=== PATIENT | female | born 1970 | race Caucasian/White ===

== ENCOUNTER 2018-01-23 14:30 | Outpatient (CLI) | payer BC ==
[~2018-01-23] VITALS: Ht 162.6 cm; Wt 97.5 kg
[2018-01-23] MEDS ORDERED: ESCI20TA PO (14:49)
[2018-01-23] MEDS ORDERED: ALPR0.254 PO (14:49)
== END 2018-01-23 14:58 | disposition home or self-care (01) ==
LOC: PREOP 14:30
PROVIDERS: ATTEND Surgery
DX: Z01.818 Encounter for other preprocedural examination (principal)

== ENCOUNTER 2018-01-25 12:18 | Day surgery (SDC) | payer BC, OTHER ==
[~2018-01-25] VITALS: Ht 162.6 cm; Wt 97.5 kg
[~2018-01-25 12:18] MED LIST: ALPR0.254 PO; ESCI20TA PO
[2018-01-25] MEDS ORDERED: LACTATED RINGERS 1,000 ML IV ONE (12:23)
[2018-01-25] MEDS ORDERED: LACTATED RINGERS 1,000 ML IV STA (12:24)
[2018-01-25 12:47] VITALS: BP 112/89
--- NOTE | 2018-01-25 12:50 | Progress Note-Pre Operative ---
Pre-Operative Progress Note H&P Reviewed The H&P was reviewed, patient examined and no changes noted. Time Seen by Provider: 12:46 Date H&P Reviewed: Jan 25, 2018 Time H&P Reviewed: 12:47 Pre-Operative Diagnosis: Personal hx of colon polyps ALBIN DEVI DO Jan 25, 2018 12:50
[2018-01-25] MEDS ORDERED: PROPOFOL INJECTION 50 ML IV ONE (13:00)
[2018-01-25] MEDS ORDERED: MIDAZOLAM 2 MG/2 ML (VERSED) VIAL ONE (13:00)
[2018-01-25] MEDS ORDERED: proPOfol 200 MG/20 ML (DIPRIVAN) VIAL IV ONE (13:36)
[2018-01-25 13:50] VITALS: BP 120/72
--- NOTE | 2018-01-25 14:02 | Progress Note-Post Operative ---
Post-Operative Progess Note Surgeon (s)/Featheredge Machine Operator (s) Surgeon ALBIN DEVI DO Featheredge Machine Operator: none Pre-Operative Diagnosis Personal hx of colon polyps Post-Operative Diagnosis Colon Polyps Internal Hemorrhoids Procedure & Operative Findings Date of Procedure 01/25/18 Procedure Performed/Findings Colon with snare Anesthesia Type IV sedation by DIRECTOR OF ALUMNI RELATIONS Estimated Blood Loss Estimated blood loss (mL): scant Specimens/Packing Specimens Removed Ascending colon polyp Descending colon polyp Large descending polyp at same site as last time ALBIN DEVI DO Jan 25, 2018 14:02
--- NOTE | 2018-01-25 14:06 | Endoscopy Discharge Instruct ---
Endo Procedure/Findings Findings 1.: Polyp 2.: Internal Hemorrhoids Discharge Instructions - Activity: You might feel a little sleepy until tomorrow. This is due to the medicine you received to relax you. Until tomorrow, you should: NOT drive a car, operate machinery or power tools. NOT drink any alcoholic beverages. NOT make any important decisions or sign importortant papers. Do not return to work until tomorrow, unless otherwise instructed. Resume previous activities tomorrow. Diet: Start by taking liquids. If you tolerate liquids, advance to solid food. Make appointment for one week Instructions: 1.: Colonoscopy in 1 year Notify Physician - If you experience excessive bleeding, unusual abdominal pain, fever, or chest pain, contact your doctor immediately. Follow-Up: - I have received and understand the above instructions and will call my doctor if I have any further questions. Patient Signature Date Nurse Signature Other (Relationship) ALBIN DEVI DO Jan 25, 2018 14:06
[2018-01-25 14:20] VITALS: BP 126/87
[2018-01-25 14:35] VITALS: BP 126/87
--- NOTE | 2018-01-26 02:51 | OPERATIVE REPORT ---
DATE OF SERVICE: PREOPERATIVE DIAGNOSIS: History of colon polyps. POSTOPERATIVE DIAGNOSES: 1. Colon polyps. 2. Internal hemorrhoids. PROCEDURE: Colonoscopy with snare polypectomy. SURGEON: William Landry DO HOUSE CLEANER SUPERVISOR: None. ANESTHESIA: IV sedation by the CLINICAL SECRETARY. SPECIMEN: One polyp from the ascending colon, small polyp from the descending colon and a very large polyp in the descending colon right at site of previous polypectomy as well as some internal hemorrhoids. PROCEDURE NOTE: After informed consent was obtained, the patient was brought to the endoscopy suite, placed on the bed in the lithotomy position. She was administered IV sedation by the CLINICAL SECRETARY who then monitored her vitals the entire time, heart rate, blood pressure and pulse ox and the scope was inserted. On the way in, noted a large polyp. Elected to push past this all the way to cecum, took a picture of appendiceal orifice, noted the ileocecal valve and then slowly withdrew the scope insufflating to look circumferentially at the ritchie looking at the cecum up the ascending colon and just about group home up the ascending colon, saw small polyp, did a snare polypectomy. Then continued up to the hepatic flexure, then down the transverse colon, splenic flexure, into the descending colon and then down towards the sigmoid colon, but I believe still in descending colon, saw small polyp, did a polypectomy and then right next was a very large polyp could see tattooing this must be the site from the previous polypectomy, able to get around this and did a hot snare polypectomy. Minimal bleeding at base, may have been small portion of the polyp left because it was just so large, but got a good enough portion elected to stop at this point, had to pull the scope all the way out with the polyps suctioned up to the scope to remove it and then placed the scope back in and then slowly took a picture of the bed where we had taken the polyp off of and then pulled the scope down the sigmoid into the rectum, retroflexed the rectal vault, saw some minimal internal hemorrhoids, took a picture of this and then removed the scope. The patient tolerated the procedure and she was recovered in the endoscopy suite. Job ID: [id number] DocumentID: [id number] Dictated Date: 01/25/2018 14:26:38 Director Critical Care Date: 01/26/2018 02:51:17 Dictated By: WILLIAM LANDRY DO [facility] MED[facility] CENTERShanice
== END 2018-01-25 14:35 | disposition home or self-care (01) ==
LOC: ENDO 12:18
PROVIDERS: ATTEND Surgery
DX: Z09 Encounter for follow-up examination after completed treatment for conditions other than malignant neoplasm (principal); C18.6 Malignant neoplasm of descending colon; D12.2 Benign neoplasm of ascending colon; D12.5 Benign neoplasm of sigmoid colon; K64.8 Other hemorrhoids; F41.9 Anxiety disorder, unspecified; Z86.010 Personal history of colon polyps; Z87.891 Personal history of nicotine dependence; Z79.899 Other long term (current) drug therapy
CPT/HCPCS: 36415; 84703; 88305; 88341; 88342

== ENCOUNTER 2018-02-12 11:52 | Outpatient (CLI) | payer OTHER ==
[~2018-02-12] VITALS: Ht 162.6 cm; Wt 109.1 kg
[2018-02-12 12:09] VITALS: BP 109/72
[2018-02-12 12:44] LABS: BASOPHILS % (AUTO) 0 % (0-10); EOSINOPHILS # (AUTO) 0.1 10^3/uL (0.0-0.3); EOSINOPHILS % (AUTO) 2 % (0-10); HEMATOCRIT 39 % (35-52); HEMOGLOBIN 12.9 G/DL (11.5-16.0); LYMPHOCYTES # (AUTO) 1.8 X 10^3 (1.0-4.0); LYMPHOCYTES % (AUTO) 26 % (12-44); MEAN CORPUSCULAR HEMOGLOBIN 28 PG (25-34); MEAN CORPUSCULAR HGB CONC 33 G/DL (32-36); MEAN CORPUSCULAR VOLUME 84 FL (80-99); MEAN PLATELET VOLUME 8.7 FL (7.4-10.4); MONOCYTES # (AUTO) 0.3 X 10^3 (0.0-1.0); MONOCYTES % (AUTO) 5 % (0-12); NEUTROPHILS # (AUTO) 4.4 X 10^3 (1.8-7.8); NEUTROPHILS % (AUTO) 67 % (42-75); PLATELET COUNT 396 10^3/uL (130-400); RED BLOOD COUNT 4.63 10^6/uL (4.35-5.85); RED CELL DISTRIBUTION WIDTH 13.7 % (10.0-14.5); WHITE BLOOD COUNT 6.7 10^3/uL (4.3-11.0)
== END 2018-02-12 15:43 | disposition home or self-care (01) ==
LOC: PREOP 11:52
PROVIDERS: ATTEND Surgery
DX: Z01.812 Encounter for preprocedural laboratory examination (principal); Z11.2 Encounter for screening for other bacterial diseases; C18.9 Malignant neoplasm of colon, unspecified
CPT/HCPCS: 36415; 85025; 86850; 86900; 86901; 87081

== ENCOUNTER 2018-02-18 05:55 | Inpatient (IN) | payer OTHER, BC | END 2018-02-21 17:10 | disposition home or self-care (01) | LOC: 4TH 05:55 → SURG 05:56 → 4TH 14:00 | PROC: 0DTN0ZZ Resection of Sigmoid Colon, Open Approach (ICD-10-PCS; principal; 2018-02-18 08:18) | PROC: 0DBP0ZZ Excision of Rectum, Open Approach (ICD-10-PCS; 2018-02-18 08:18) | DX: C18.7 Malignant neoplasm of sigmoid colon (principal); K64.8 Other hemorrhoids; E66.9 Obesity, unspecified; Z68.41 Body mass index [BMI] 40.0-44.9, adult; F17.210 Nicotine dependence, cigarettes, uncomplicated; K21.9 Gastro-esophageal reflux disease without esophagitis; F41.9 Anxiety disorder, unspecified; Z86.010 Personal history of colon polyps; Z98.82 Breast implant status; Z88.5 Allergy status to narcotic agent ==

== ENCOUNTER → 2018-02-26 | Outpatient (CLI) | payer OTHER ==
[~2018-02-26] MED LIST changes: +HYDR-3820 PO
[2018-02-26 13:24] LABS: BILIRUBIN,URINE NEGATIVE (NEGATIVE); CLARITY,URINE CLEAR; COLOR,URINE YELLOW; GLUCOSE, URINE (UA) NEGATIVE (NEGATIVE); KETONES,URINE NEGATIVE (NEGATIVE); LEUKOCYTE ESTERASE ,URINE 1+ (NEGATIVE); NITRITE,URINE NEGATIVE (NEGATIVE); PH,URINE 6.5 (5-9); PROTEIN,URINE NEGATIVE (NEGATIVE); UROBILINOGEN,URINE NORMAL (NORMAL)
[2018-02-26 13:54] LABS: BACTERIA,URINE FEW /HPF; WBC,URINE 0-2 /HPF
== END ==
LOC: LAB 13:01
PROVIDERS: ATTEND Surgery
DX: R30.0 Dysuria (principal)
CPT/HCPCS: 81000

== ENCOUNTER → 2018-03-18 | Outpatient (CLI) | payer OTHER ==
[~2018-03-18] MED LIST changes: +BARIUM SUSPENSION 2.1% (VANILLA SILQ) 450 ML PO ONE; +IOHEXOL 350 MG/ML 100 ML (OMNIPAQUE 350) VIAL IV ONE; +NS 100 ML (IVPB) BAG IV ONE; +RECEIVED CONTRAST (Hold Metformin) IV SCH
--- NOTE | 2018-03-18 09:48 | Diagnostic Imaging Report ---
PROCEDURE: CT chest with contrast, CT abdomen and pelvis with and without contrast. TECHNIQUE: Pre and post intravenous contrast axial imaging of the abdomen and pelvis and post contrast axial imaging of the chest were performed. INDICATION: Newly diagnosed colon carcinoma. COMPARISON: No prior studies are available for comparison. FINDINGS: CT chest: No definite axillary lymphadenopathy is identified. No mediastinal or hilar lymphadenopathy is detected. No pericardial or pleural fluid is identified. No pulmonary infiltrates, nodules or masses are seen. Bilateral breast implants are noted. IMPRESSION: No evidence of thoracic lymphadenopathy or pulmonary metastatic disease. CT abdomen and pelvis: No discrete liver mass is identified. The gallbladder is unremarkable. No biliary duct dilatation is seen. The pancreas is unremarkable. There is a small circumscribed low density in the spleen measuring 12 mm. This is too small to characterize and may represent a small cyst. There is no adrenal mass. Kidneys are unremarkable. Aorta is nonaneurysmal. No central retroperitoneal or mesenteric lymphadenopathy is seen. Visualized small and large bowel loops appear to be normal caliber. Appendix is unremarkable. Uterus is unremarkable. There are small circumscribed low densities in both ovaries consistent with small cysts. Cyst on the right is largest measuring 2 cm. The bladder is decompressed but otherwise unremarkable. No pelvic lymphadenopathy is identified. Bony structures are unremarkable. There are postsurgical changes in the midline anterior abdominal wall. IMPRESSION: Essentially unremarkable CT of the abdomen and pelvis. No abdominal or pelvic lymphadenopathy or evidence of metastatic disease is detected. There is a small right ovarian cyst. Dictated by: Dictated on workstation # [id number]
== END ==
LOC: RAD 08:57
PROVIDERS: ATTEND Internal Medicine Hematology & Oncology
DX: C18.7 Malignant neoplasm of sigmoid colon (principal); N83.201 Unspecified ovarian cyst, right side; Z98.82 Breast implant status
CPT/HCPCS: 71260; 74178

== ENCOUNTER 2018-03-27 05:35 | Outpatient (CLI) | payer OTHER ==
[~2018-03-27] VITALS: Ht 162.6 cm; Wt 104.3 kg
[~2018-03-27 05:35] MED LIST changes: -BARIUM SUSPENSION 2.1% (VANILLA SILQ) 450 ML PO ONE; -IOHEXOL 350 MG/ML 100 ML (OMNIPAQUE 350) VIAL IV ONE; -NS 100 ML (IVPB) BAG IV ONE; -RECEIVED CONTRAST (Hold Metformin) IV SCH
== END 2018-03-27 11:34 | disposition home or self-care (01) ==
LOC: PREOP 05:35
PROVIDERS: ATTEND Surgery
DX: Z01.818 Encounter for other preprocedural examination (principal)

== ENCOUNTER 2018-03-29 07:30 | Day surgery (SDC) | payer OTHER ==
[~2018-03-29] VITALS: Ht 162.6 cm; Wt 104.3 kg
--- OUTSIDE RECORDS SUMMARY | 2018-03-29 07:33 | XMS REPORT | Continuity of Care Document ---
Author Author [facility] Organization [facility] Address Unknown Phone Unavailable Allergies Active Description Code Type Severity Reaction Onset Reported/Identified Relationship to Patient Clinical Status Yes NKANo Known Allergies NKA Miscellaneous Allergy Unknown N/A 05/02/2005 Yes No Known Drug Allergies [id number] Drug Allergy Unknown N/A 12/17/2015 Yes codeine [id number] Drug Allergy Moderate HALLUCINATIONS 02/18/2018 Medications There is no data. Problems Date Dx Coded Attending Type Code Diagnosis Diagnosed By 05/26/2015 LENY SALDIVAR MD Ot K62.5 HEMORRHAGE OF ANUS AND RECTUM 05/26/2015 LENY SALDIVAR MD Ot K64.9 UNSPECIFIED HEMORRHOIDS 05/26/2015 LENY SALDIVAR MD Ot Z01.818 ENCOUNTER FOR OTHER PREPROCEDURAL EXAMIN 05/27/2015 LENY SALDIVAR MD Ot K62.5 HEMORRHAGE OF ANUS AND RECTUM 05/27/2015 LENY SALDIVAR MD Ot K64.9 UNSPECIFIED HEMORRHOIDS 05/27/2015 LENY SALDIVAR MD Ot Z01.818 ENCOUNTER FOR OTHER PREPROCEDURAL EXAMIN 05/31/2015 LENY SALDIVAR MD Ot K63.5 POLYP OF COLON 05/31/2015 LENY SALDIVAR MD Ot K64.9 UNSPECIFIED HEMORRHOIDS 06/01/2015 LENY SALDIVAR MD Ot K63.5 POLYP OF COLON 06/01/2015 LENY SALDIVAR MD Ot K64.9 UNSPECIFIED HEMORRHOIDS 12/17/2015 LENY SALDIVAR MD Ot Z01.818 ENCOUNTER FOR OTHER PREPROCEDURAL EXAMIN 12/17/2015 LENY SALDIVAR MD Ot Z86.010 PERSONAL HISTORY OF COLONIC POLYPS 12/17/2015 LENY SALDIVAR MD Ot Z01.818 ENCOUNTER FOR OTHER PREPROCEDURAL EXAMIN 12/17/2015 LENY SALDIVAR MD Ot Z86.010 PERSONAL HISTORY OF COLONIC POLYPS 12/20/2015 JANNA NOYOLA, LENY Ogden Ot K64.8 OTHER HEMORRHOIDS 12/20/2015 JANNA NOYOLA, LENY M Ot Z09 ENCNTR FOR F/U EXAM AFT TRTMT FOR COND O 12/20/2015 JANNA NOYOLA, LENY Ogden Ot Z86.010 PERSONAL HISTORY OF COLONIC POLYPS 12/21/2015 JANNA NOYOLA, LENY Ogden Ot K64.8 OTHER HEMORRHOIDS 12/21/2015 JANNA NOYOLA, LENY Ogden Ot Z09 ENCNTR FOR F/U EXAM AFT TRTMT FOR COND O 12/21/2015 JANNA NOYOLA, LENY Ogden Ot Z86.010 PERSONAL HISTORY OF COLONIC POLYPS 01/21/2018 ALBIN DEVI DO Ot Z01.818 ENCOUNTER FOR OTHER PREPROCEDURAL EXAMIN 01/23/2018 ALBIN DEVI DO B Ot Z01.818 ENCOUNTER FOR OTHER PREPROCEDURAL EXAMIN 01/23/2018 ALBIN DEVI DO Ot Z01.818 ENCOUNTER FOR OTHER PREPROCEDURAL EXAMIN 01/25/2018 ALBIN DEVI DO B Ot 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 01/25/2018 ALBIN DEVI DO B Ot D12.2 BENIGN NEOPLASM OF ASCENDING COLON 01/25/2018 ALBIN DEVI DO Ot D12.5 BENIGN NEOPLASM OF SIGMOID COLON 01/25/2018 ALBIN DEVI DO Ot F41.9 ANXIETY DISORDER, UNSPECIFIED 01/25/2018 ALBIN DEVI DO Ot K64.8 OTHER HEMORRHOIDS 01/25/2018 ALBIN DEVI DO Ot Z09 ENCNTR FOR F/U EXAM AFT TRTMT FOR COND O 01/25/2018 ALBIN DEVI DO Ot Z79.899 OTHER MANAGER FINE DINING (CURRENT) DRUG THERAPY 01/25/2018 ALBIN DEVI DO Ot Z86.010 PERSONAL HISTORY OF COLONIC POLYPS 01/25/2018 ALBIN DEVI DO Ot Z87.891 PERSONAL HISTORY OF NICOTINE DEPENDENCE 01/29/2018 ALBIN DEVI DO B Ot Z01.818 ENCOUNTER FOR OTHER PREPROCEDURAL EXAMIN 01/31/2018 ALBIN DEVI DO B Ot 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 01/31/2018 DELMAN DO, ALBIN B Ot D12.2 BENIGN NEOPLASM OF ASCENDING COLON 01/31/2018 SHANDRA AWAD ALBIN B Ot D12.5 BENIGN NEOPLASM OF SIGMOID COLON 01/31/2018 SILKE DEVI DOIC B Ot F41.9 ANXIETY DISORDER, UNSPECIFIED 01/31/2018 SILKE DEVI DOIC B Ot K64.8 OTHER HEMORRHOIDS 01/31/2018 SILKE DEVI DOIC B Ot Z09 ENCNTR FOR F/U EXAM AFT TRTMT FOR COND O 01/31/2018 SILKE DEVI DOIC B Ot Z79.899 OTHER MANAGER FINE DINING (CURRENT) DRUG THERAPY 01/31/2018 SILKE DEVI DOIC B Ot Z86.010 PERSONAL HISTORY OF COLONIC POLYPS 01/31/2018 SHANDRA AWAD ALBIN B Ot Z87.891 PERSONAL HISTORY OF NICOTINE DEPENDENCE 01/31/2018 SHANDRA AWAD ALBIN B Ot 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 01/31/2018 SHANDRA AWAD ALBIN B Ot D12.2 BENIGN NEOPLASM OF ASCENDING COLON 01/31/2018 SHANDRA AWAD ALBIN B Ot D12.5 BENIGN NEOPLASM OF SIGMOID COLON 01/31/2018 SILKE DEVI DOIC B Ot F41.9 ANXIETY DISORDER, UNSPECIFIED 01/31/2018 SILKE DEVI DOIC B Ot K64.8 OTHER HEMORRHOIDS 01/31/2018 SHANDRA AWAD ALBIN B Ot Z09 ENCNTR FOR F/U EXAM AFT TRTMT FOR COND O 01/31/2018 SILKE DEVI DOIC B Ot Z79.899 OTHER MANAGER FINE DINING (CURRENT) DRUG THERAPY 01/31/2018 SHANDRA AWAD ALBIN B Ot Z86.010 PERSONAL HISTORY OF COLONIC POLYPS 01/31/2018 SHANDRA AWAD ALBIN B Ot Z87.891 PERSONAL HISTORY OF NICOTINE DEPENDENCE 02/12/2018 SHANDRA AWADSILKEIC B Ot C18.9 MALIGNANT NEOPLASM OF COLON, UNSPECIFIED 02/12/2018 SILKE DEVI DOIC B Ot Z01.812 ENCOUNTER FOR PREPROCEDURAL LABORATORY E 02/12/2018 SHANDRA AWADALBIN B Ot Z11.2 ENCOUNTER FOR SCREENING FOR OTHER BACTER 02/13/2018 CESARTABITHA AWADSILKEIC B Ot C18.9 MALIGNANT NEOPLASM OF COLON, UNSPECIFIED 02/13/2018 CESARTABITHA SILKE AWADIC B Ot Z01.812 ENCOUNTER FOR PREPROCEDURAL LABORATORY E 02/13/2018 CESARTABITHA ALBIN AWAD B Ot Z11.2 ENCOUNTER FOR SCREENING FOR OTHER BACTER 02/13/2018 ALBIN DEVI DO B Ot C18.9 MALIGNANT NEOPLASM OF COLON, UNSPECIFIED 02/13/2018 SILKE DEVI DOIC B Ot Z01.812 ENCOUNTER FOR PREPROCEDURAL LABORATORY E 02/13/2018 ALBIN DEVI DO Ot Z11.2 ENCOUNTER FOR SCREENING FOR OTHER BACTER 02/21/2018 ALBIN DEVI DO B Ot C18.7 MALIGNANT NEOPLASM OF SIGMOID COLON 02/21/2018 ALBIN DEVI DO Ot C77.2 SECONDARY AND UNSP MALIGNANT NEOPLASM OF 02/21/2018 ALBIN DEVI DO B Ot E66.9 OBESITY, UNSPECIFIED 02/21/2018 SILKE DEVI DOIC B Ot F17.210 NICOTINE DEPENDENCE, CIGARETTES, UNCOMPL 02/21/2018 ALBIN DEVI DO B Ot F32.9 MAJOR DEPRESSIVE DISORDER, SINGLE EPISOD 02/21/2018 ALBIN DEVI DO B Ot F41.9 ANXIETY DISORDER, UNSPECIFIED 02/21/2018 ALBIN DEVI DO B Ot K21.9 GASTRO-ESOPHAGEAL REFLUX DISEASE WITHOUT 02/21/2018 ALBIN DEVI DO B Ot K64.8 OTHER HEMORRHOIDS 02/21/2018 ALBIN DEVI DO B Ot Z68.41 BODY MASS INDEX (BMI) 40.0-44.9, ADULT 02/21/2018 ALBIN DEVI DO B Ot Z80.0 FAMILY HISTORY OF MALIGNANT NEOPLASM OF 02/21/2018 ALBIN DEVI DO Ot Z80.8 FAMILY HISTORY OF MALIGNANT NEOPLASM OF 02/21/2018 ALBIN DEVI DO B Ot Z86.010 PERSONAL HISTORY OF COLONIC POLYPS 02/21/2018 ALBIN DEVI DO B Ot Z88.5 ALLERGY STATUS TO NARCOTIC AGENT STATUS 02/21/2018 ALBIN DEVI DO B Ot Z98.82 BREAST IMPLANT STATUS 02/21/2018 SILKE DEVI DOIC B Ot C18.7 MALIGNANT NEOPLASM OF SIGMOID COLON 02/21/2018 ALBIN DEVI DO B Ot E66.9 OBESITY, UNSPECIFIED 02/21/2018 ALBIN DEVI DO B Ot F17.210 NICOTINE DEPENDENCE, CIGARETTES, UNCOMPL 02/21/2018 DELMAN DO, ALBIN B Ot F41.9 ANXIETY DISORDER, UNSPECIFIED 02/21/2018 SILKE DEVI DOIC B Ot K21.9 GASTRO-ESOPHAGEAL REFLUX DISEASE WITHOUT 02/21/2018 SILKE DEVI DOIC B Ot K64.8 OTHER HEMORRHOIDS 02/21/2018 SHANDRA AWAD ALBIN B Ot Z68.41 BODY MASS INDEX (BMI) 40.0-44.9, ADULT 02/21/2018 SILKE DEVI DOIC B Ot Z86.010 PERSONAL HISTORY OF COLONIC POLYPS 02/21/2018 SILKE DEVI DOIC B Ot Z88.5 ALLERGY STATUS TO NARCOTIC AGENT STATUS 02/21/2018 SILKE DEVI DOIC B Ot Z98.82 BREAST IMPLANT STATUS 02/27/2018 SILKE DEVI DOIC B Ot R30.0 DYSURIA 02/27/2018 SHANDRA AWAD ALBIN B Ot R30.0 DYSURIA 03/06/2018 SILKE DEVI DOIC B Ot R30.0 DYSURIA 03/25/2018 MARTINEZFRANCISCO JAVIER Ot C18.7 MALIGNANT NEOPLASM OF SIGMOID COLON 03/25/2018 FRANCISCO JAVIER HENRIQUEZ Ot N83.201 UNSPECIFIED OVARIAN CYST, RIGHT SIDE 03/25/2018 FRANCISCO JAVIER HENRIQUEZ Ot Z98.82 BREAST IMPLANT STATUS 03/25/2018 SILKE DEVI DOIC B Ot R30.0 DYSURIA 03/27/2018 FRANCISCO JAVIER HENRIQUEZ Ot C18.7 MALIGNANT NEOPLASM OF SIGMOID COLON Procedures Code Description Performed By Performed On [id number] EXCISION OF RECTUM, OPEN APPROACH 02/18/2018 [id number] RESECTION OF SIGMOID COLON , OPEN APPROAC 02/18/2018 Results Test Result Range Urine beta human chorionic gonadotropin (hCG) measurement - 12/20/15 10:00 Urine beta human chorionic gonadotropin (hCG) measurement NEGATIVE NEGATIVE Serum or plasma choriogonadotropin ( test) detection - 01/25/18 12:45 Serum or plasma choriogonadotropin ( test) detection NEGATIVE NEGATIVE Complete blood count (CBC) with automated white blood cell (WBC) differential - 02/12/18 12:20 Blood leukocytes automated count (number/volume) 6.7 10*3/uL 4.3-11.0 Blood erythrocytes automated count (number/volume) 4.63 10*6/uL 4.35-5.85 Venous blood hemoglobin measurement (mass/volume) 12.9 g/dL 11.5-16.0 Blood hematocrit (volume fraction) 39 % 35-52 Automated erythrocyte mean corpuscular volume 84 [foz_us] 80-99 Automated erythrocyte mean corpuscular hemoglobin (mass per erythrocyte) 28 pg 25-34 Automated erythrocyte mean corpuscular hemoglobin concentration measurement ( mass/volume) 33 g/dL 32-36 Automated erythrocyte distribution width ratio 13.7 % 10.0-14.5 Automated blood platelet count (count/volume) 396 10*3/uL 130-400 Automated blood platelet mean volume measurement 8.7 [foz_us] 7.4-10.4 Automated blood neutrophils/100 leukocytes 67 % 42-75 Automated blood lymphocytes/100 leukocytes 26 % 12-44 Blood monocytes/100 leukocytes 5 % 0-12 Automated blood eosinophils/100 leukocytes 2 % 0-10 Automated blood basophils/100 leukocytes 0 % 0-10 Blood neutrophils automated count (number/volume) 4.4 10*3 1.8-7.8 Blood lymphocytes automated count (number/volume) 1.8 10*3 1.0-4.0 Blood monocytes automated count (number/volume) 0.3 10*3 0.0-1.0 Automated eosinophil count 0.1 10*3/uL 0.0-0.3 Automated blood basophil count (count/volume) 0.0 10*3/uL 0.0-0.1 Blood type T Indirect antibody screen panel - 02/12/18 12:20 ABO+Rh group ON NRG Blood group antibody screen NEGATIVE NRG Methicillin resistant Staphylococcus aureus (MRSA) screening culture - 12:20 Methicillin resistant Staphylococcus aureus (MRSA) screening culture NEG NRG Urine beta human chorionic gonadotropin (hCG) measurement - 02/18/18 06:23 Urine beta human chorionic gonadotropin (hCG) measurement NEGATIVE NEGATIVE Blood type T Indirect antibody screen panel - 02/18/18 06:37 ABO+Rh group ON NRG Transfusion band number [id number] NRG Blood group antibody screen NEGATIVE NRG Automated blood complete blood count (hemogram) panel - 02/21/18 03:55 Blood leukocytes automated count (number/volume) 7.8 10*3/uL 4.3-11.0 Blood erythrocytes automated count (number/volume) 3.33 10*6/uL 4.35-5.85 Venous blood hemoglobin measurement (mass/volume) 9.3 g/dL 11.5-16.0 Blood hematocrit (volume fraction) 29 % 35-52 Automated erythrocyte mean corpuscular volume 87 [foz_us] 80-99 Automated erythrocyte mean corpuscular hemoglobin (mass per erythrocyte) 28 pg 25-34 Automated erythrocyte mean corpuscular hemoglobin concentration measurement ( mass/volume) 32 g/dL 32-36 Automated erythrocyte distribution width ratio 13.8 % 10.0-14.5 Automated blood platelet count (count/volume) 279 10*3/uL 130-400 Automated blood platelet mean volume measurement 8.7 [foz_us] 7.4-10.4 Comprehensive metabolic panel - 02/21/18 03:55 Serum or plasma sodium measurement (moles/volume) 138 mmol/L 135-145 Serum or plasma potassium measurement (moles/volume) 3.1 mmol/L 3.6-5.0 Serum or plasma chloride measurement (moles/volume) 107 mmol/L 98-107 Carbon dioxide 21 mmol/L 21-32 Serum or plasma anion gap determination (moles/volume) 10 mmol/L 5-14 Serum or plasma urea nitrogen measurement (mass/volume) 8 mg/dL 7-18 Serum or plasma creatinine measurement (mass/volume) 0.67 mg/dL 0.60-1.30 Serum or plasma urea nitrogen/creatinine mass ratio 12 NRG Serum or plasma creatinine measurement with calculation of estimated glomerular filtration rate > NRG Serum or plasma glucose measurement (mass/volume) 73 mg/dL 70-105 Serum or plasma calcium measurement (mass/volume) 8.2 mg/dL 8.5-10.1 Serum or plasma total bilirubin measurement (mass/volume) 0.3 mg/dL 0.1-1.0 Serum or plasma alkaline phosphatase measurement (enzymatic activity/volume) 72 U/L 40-136 Serum or plasma aspartate aminotransferase measurement (enzymatic activity/ volume) 20 U/L 5-34 Serum or plasma alanine aminotransferase measurement (enzymatic activity/volume ) 14 U/L 0-55 Serum or plasma protein measurement (mass/volume) 5.2 g/dL 6.4-8.2 Serum or plasma albumin measurement (mass/volume) 2.9 g/dL 3.2-4.5 CALCIUM CORRECTED 9.1 mg/dL 8.5-10.1 Encounters ACCT No. Visit Date/Time Discharge Status Pt. Type Provider Facility Loc./Unit Complaint [id number] 03/27/2018 05:35:00 03/27/2018 11:34:00 DIS Outpatient ALBIN DEVI DO [facility] PREOP PORT PLACEMENT [id number] 03/25/2018 10:42:00 03/25/2018 23:59:59 CLS Outpatient FRANCISCO JAVIER HENRIQUEZ [facility] ONC [id number] 03/18/2018 08:57:00 03/18/2018 23:59:59 CLS Outpatient FRANCISCO JAVIER HENRIQUEZ [facility] RAD MALIGNANT NEOPLASM OF SIGMOID COLON [id number] 02/26/2018 13:01:00 02/26/2018 23:59:59 CLS Outpatient ALBIN DEVI DO [facility] LAB BURNING WITH URINATION [id number] 02/18/2018 05:55:00 02/21/2018 17:10:00 DIS Inpatient ALBIN DEVI DO [facility] 4TH COLON CARCINOMA [id number] 02/12/2018 11:52:00 02/12/2018 23:59:59 CLS Outpatient ALBIN DEVI DO [facility] PREOP SIGMOID COLON RESECTION [id number] 01/25/2018 12:18:00 01/25/2018 14:35:00 DIS Outpatient ALBIN DEVI DO [facility] ENDO SURVELLIANCE [id number] 01/23/2018 14:30:00 01/23/2018 14:58:00 DIS Outpatient ALBIN DEVI DO [facility] PREOP COLONOSCOPY [id number] 12/20/2015 09:37:00 12/20/2015 12:40:00 DIS Outpatient LENY SALDIVAR MD [facility] SDC SCREENING [id number] 12/17/2015 05:32:00 12/17/2015 10:04:00 DIS Outpatient LENY SALDIVAR MD [facility] PREOP HX POLYPS [id number] 05/31/2015 09:27:00 05/31/2015 14:17:00 DIS Outpatient LENY SALDIVAR MD [facility] RECTAL BLEEDING; HEMORRHOID [id number] 05/26/2015 05:35:00 05/26/2015 13:37:00 DIS Outpatient LENY SALDIVAR MD [facility] PREOP RECTAL BLEEDING; HEMMORHOIDS [id number] 03/29/2018 07:30:00 ACT Outpatient ALBIN DEVI DO [facility] COLON CANCER
[2018-03-29] MEDS ORDERED: LACTATED RINGERS 1,000 ML IV PRN (07:43)
[2018-03-29] MEDS ORDERED: ceFAZolin 2 GM IV Premixed 50 ML IV ONE (07:45)
[2018-03-29] MEDS ORDERED: PROPOFOL INJECTION 50 ML IV ONE (07:57)
[2018-03-29] MEDS ORDERED: MIDAZOLAM 2 MG/2 ML (VERSED) VIAL ONE (07:57)
[2018-03-29] MEDS ORDERED: fentaNYL INJECTION 100 MCG/2 ML AMP ONE (07:57)
[2018-03-29] MEDS ORDERED: CATHETER FLUSH 10 ML SYR IV PRN (08:00)
[2018-03-29] MEDS ORDERED: 0.9% SODIUM CHLORIDE PF INJ 20 ML VIAL ONE (08:09)
[2018-03-29] MEDS ORDERED: LIDOCAINE 1% INJ 20 ML 20 ML VIAL ONE (08:09)
[2018-03-29] MEDS ORDERED: HEParin (CENTRAL IV FLUSH) 500 UNIT/5 ML SYR ONE (08:09)
[2018-03-29] MEDS ORDERED: BUP/EPI 0.5% 1:200,000 (SENSORCAINE) 30 ML VIAL ONE (08:09)
[2018-03-29 08:53] VITALS: BP 114/68
--- NOTE | 2018-03-29 09:21 | Progress Note-Pre Operative ---
Pre-Operative Progress Note H&P Reviewed The H&P was reviewed, patient examined and no changes noted. Time Seen by Provider: 09:11 Date H&P Reviewed: Mar 29, 2018 Time H&P Reviewed: 09:12 Pre-Operative Diagnosis: colon cancer, Venous insufficiency ALBIN DEVI DO Mar 29, 2018 09:21
--- NOTE | 2018-03-29 09:57 | Progress Note-Post Operative ---
Post-Operative Progess Note Surgeon (s)/Misdraw Hand (s) Surgeon ALBIN DEVI DO Misdraw Hand: none Pre-Operative Diagnosis colon cancer, Venous insufficiency Post-Operative Diagnosis same Procedure & Operative Findings Date of Procedure 03/29/18 Procedure Performed/Findings Briseida-cath insertion Anesthesia Type IV sedation by CHARTER COORDINATOR Estimated Blood Loss Estimated blood loss (mL): scant Specimens/Packing Specimens Removed none ALBIN DEVI DO Mar 29, 2018 09:56
--- NOTE | 2018-03-29 09:58 | Discharge Inst-Surgical ---
Discharge Inst-Surgical Depart Medication/Instructions Patient Instructions Follow up Appt: Make appointment for 1 week. [phone] Instructions: No lifting greater than 20 pounds. No strenuous activity. May shower in 24 hours, no tub bath or soaking. Use incentive spirometer at home as directed. No Smoking Skin/Wound Care: May remove bandages in am. You need to leave the Dermabond on incision it will fall off on it's own. Symptoms to Report: Appetite Changes, Extremity Discoloration, Numbness/Tingling, Swelling Increased , Bleeding Excessive, Eyesight Changes, Pain Increased, Urine Color Change, Constipation(Persistent), Fever over 101 degree F, Pain/Pressure in chest, Urinating Difficulty, Cough Up/Vomit Blood, Heart Beat Irreg/Pounding, Pain/ Pressure in jaw, Cramps in feet or legs, Lightheadedness, Pain/Pressure in shoulder, Diarrhea(Persistent), Memory Changes Suddenly, Questions/Concerns, Weight gain consecutive days, Dizziness/Fainting, Nausea/Vomiting, Shortness of Breath, Weight gain over 2 pounds If questions or concerns contact your physician Or seek help at emergency department. Activity Activity as Tolerated: Yes Driving Instructions: No Driving/Refer to Dr. Altamirano Discharge Diet: No Restrictions If Any Problems/Questions/Issu: Contact Your Physician, Go to Emergency Room Skin/Wound Care Infection Signs and Symptoms: Increased Redness, Foul Odor of Wound, Increased Drainage, Skin Itchy or Has a Rash, Increased Swelling, Temperature Above 101 F Bathing Instructions: Shower Stitches/Cipriano/Dermabond Dis: ALBIN Blair DO Mar 29, 2018 09:58
[2018-03-29] MEDS ORDERED: morphine INJ 10 MG/ML 1ML (SYR OR VIAL) IVP ONE (10:15)
[2018-03-29] MEDS ORDERED: ONDANSETRON 4 MG/2 ML (SDV) Z0FRAN IVP PRN (10:15)
[2018-03-29] MEDS ORDERED: MEPERIDINE (DEMEROL) INJ 50 MG/ML IVP ONE (10:15)
[2018-03-29 10:25] VITALS: BP 133/90
[2018-03-29 10:55] VITALS: BP 114/78
[2018-03-29 11:25] VITALS: BP 114/78
--- NOTE | 2018-03-29 11:45 | Diagnostic Imaging Report ---
INDICATION: Fluoroscopy during port placement. Fluoroscopy was provided for Dr. Landry during port placement. 4 seconds of fluoroscopy was utilized. Images demonstrate left chest wall port with tip overlying SVC. IMPRESSION: Fluoroscopy during port placement. Dictated by: Dictated on workstation # [id number]
--- NOTE | 2018-03-29 19:19 | OPERATIVE REPORT ---
DATE OF SERVICE: 03/29/2018 PREOPERATIVE DIAGNOSES: 1. Colon cancer. 2. Venous insufficiency. POSTOPERATIVE DIAGNOSES: 1. Colon cancer. 2. Venous insufficiency. PROCEDURE: Port-A-Cath insertion. SURGEON: William Landry DO. WATER SUPPLY TECHNICIAN: None. ANESTHESIA: IV sedation by the AMPOULE FILLER AND SEALER. SPECIMENS: None. BLOOD LOSS: Scant. FLUIDS: Per anesthesia. POSTOPERATIVE CONDITION: Stable. INDICATION FOR PROCEDURE: The patient is a 47-year-old female, who unfortunately, recently diagnosed with colon cancer, has venous insufficiency, needs a Port-A-Cath placed for long-term chemotherapy. FINDINGS: The patient had Port-A-Cath placed left anterior chest wall, left subclavian vein. PROCEDURE NOTE: After informed consent was obtained, the patient was brought to the operating room, placed on table in supine position. She was sterilely prepped and draped in normal fashion. Local lidocaine was used to infiltrate the left anterior chest wall towards the clavicle as well as a pocket for the port. Patient placed slightly Trendelenburg and then an 18-gauge fine needle was advanced using negative inspiration and cannulated on the first attempt, but unable to get the wire to go down, slightly pulled back and then readvanced, and at this time got a good flash of blood and a guidewire easily advanced down the needle using the Seldinger technique, checked with fluoroscopy, it was in good position, and then removed the needle and clamped the guidewire to the drape with a hemostat, made a stab incision along the guidewire and then in left anterior chest wall, made incision with #11 blade, carried down through the skin into subcutaneous tissue, deepened down to subcutaneous tissue with Bovie electrocautery down to the fascia. Created a pocket bluntly as well as some Bovie electrocautery and then tunneled the catheter from the stab incision into the pocket created. Then, over the guidewire placed a dilator using Seldinger technique, it went in easily, checked with fluoroscopy, it was in good position, removed the inner portion of the dilator as well as the guidewire, and then placed the catheter down the dilator sheath using the Seldinger technique, it went in easily, checked with fluoroscopy, it was in good position, removed the external portion of the dilator, then cut the catheter, attached the catheter to the port and then used the locking mechanism, then accessed the port with a De La Torre needle. Good flash of blood, then easily flushed with saline then aspirated again, and then flushed with heparin flush. Placed the port into the pocket, then sutured down with a 3-0 Prolene and then checked for fluoroscopy again and there were no kinks at the port and catheter looked good. At this point then closed the incision closing the subcutaneous tissue with 3-0 Vicryl, 2 interrupted sutures and closed the skin with 4-0 undyed Monocryl 3 interrupted subcuticular stitches as well as a single 4-0 undyed Monocryl subcuticular stitch at the stab incision. Area was then cleaned and dried. Dermabond placed as well as Band-Aids. The patient tolerated the procedure, transferred to recovery room in stable condition. Sponge, instrument and needle counts correct at the end of the case. Job ID: [id number] DocumentID: [id number] Dictated Date: 03/29/2018 11:43:54 Java Architect Date: 03/29/2018 19:18:49 Dictated By: DO ETIENNE MASTERS
== END 2018-03-29 11:25 | disposition home or self-care (01) ==
LOC: SDC 07:30
PROVIDERS: ATTEND Surgery
DX: C18.7 Malignant neoplasm of sigmoid colon (principal); I87.2 Venous insufficiency (chronic) (peripheral); K21.9 Gastro-esophageal reflux disease without esophagitis; Z87.891 Personal history of nicotine dependence
CPT/HCPCS: 84703; 87081; 94664

== ENCOUNTER 2018-06-19 13:10 | Outpatient (RCR) | payer OTHER ==
[2018-03-25 11:14] LABS: BASOPHILS % (AUTO) 0 % (0-10); EOSINOPHILS # (AUTO) 0.1 10^3/uL (0.0-0.3); EOSINOPHILS % (AUTO) 1 % (0-10); HEMATOCRIT 37 % (35-52); HEMOGLOBIN 12.2 G/DL (11.5-16.0); LYMPHOCYTES # (AUTO) 1.7 X 10^3 (1.0-4.0); LYMPHOCYTES % (AUTO) 23 % (12-44); MEAN CORPUSCULAR HEMOGLOBIN 28 PG (25-34); MEAN CORPUSCULAR HGB CONC 33 G/DL (32-36); MEAN CORPUSCULAR VOLUME 85 FL (80-99); MEAN PLATELET VOLUME 9.2 FL (7.4-10.4); MONOCYTES # (AUTO) 0.4 X 10^3 (0.0-1.0); MONOCYTES % (AUTO) 6 % (0-12); NEUTROPHILS % (AUTO) 69 % (42-75); PLATELET COUNT 317 10^3/uL (130-400); RED CELL DISTRIBUTION WIDTH 13.7 % (10.0-14.5); WHITE BLOOD COUNT 7.2 10^3/uL (4.3-11.0)
[2018-03-25 11:31] LABS: ALANINE AMINOTRANSFERASE 35 U/L (0-55); ALBUMIN 4.1 GM/DL (3.2-4.5); ALKALINE PHOSPHATASE 58 U/L (40-136); BILIRUBIN,TOTAL 0.2 MG/DL (0.1-1.0); BUN/CREATININE RATIO 19; CALCIUM 9.7 MG/DL (8.5-10.1); CARBON DIOXIDE 23 MMOL/L (21-32); CHLORIDE 107 MMOL/L (98-107); CREATININE SERUM 0.86 MG/DL (0.60-1.30); GFR ESTIMATED > 60; GLUCOSE 87 MG/DL (70-105); POTASSIUM 4.1 MMOL/L (3.6-5.0); SODIUM 137 MMOL/L (135-145); TOTAL PROTEIN 7.1 GM/DL (6.4-8.2)
[2018-04-10 13:06] LABS: BASOPHILS % (AUTO) 0 % (0-10); EOSINOPHILS # (AUTO) 0.6 10^3/uL (0.0-0.3); EOSINOPHILS % (AUTO) 8 % (0-10); HEMATOCRIT 36 % (35-52); HEMOGLOBIN 11.8 G/DL (11.5-16.0); LYMPHOCYTES # (AUTO) 1.8 X 10^3 (1.0-4.0); LYMPHOCYTES % (AUTO) 22 % (12-44); MEAN CORPUSCULAR HEMOGLOBIN 27 PG (25-34); MEAN CORPUSCULAR HGB CONC 32 G/DL (32-36); MEAN CORPUSCULAR VOLUME 84 FL (80-99); MEAN PLATELET VOLUME 8.8 FL (7.4-10.4); MONOCYTES # (AUTO) 0.3 X 10^3 (0.0-1.0); MONOCYTES % (AUTO) 4 % (0-12); NEUTROPHILS # (AUTO) 5.2 X 10^3 (1.8-7.8); NEUTROPHILS % (AUTO) 66 % (42-75); PLATELET COUNT 376 10^3/uL (130-400); RED CELL DISTRIBUTION WIDTH 13.4 % (10.0-14.5); WHITE BLOOD COUNT 7.9 10^3/uL (4.3-11.0)
[2018-04-10 13:22] LABS: BUN/CREATININE RATIO 16; CALCIUM 9.1 MG/DL (8.5-10.1); CARBON DIOXIDE 21 MMOL/L (21-32); CHLORIDE 105 MMOL/L (98-107); CREATININE SERUM 0.88 MG/DL (0.60-1.30); GFR ESTIMATED > 60; GLUCOSE 116 MG/DL (70-105); POTASSIUM 3.5 MMOL/L (3.6-5.0); SODIUM 135 MMOL/L (135-145)
[2018-04-17 09:27] LABS: BASOPHILS # (AUTO) 0.1 10^3/uL (0.0-0.1); BASOPHILS % (AUTO) 1 % (0-10); EOSINOPHILS # (AUTO) 0.2 10^3/uL (0.0-0.3); EOSINOPHILS % (AUTO) 5 % (0-10); HEMATOCRIT 34 % (35-52); HEMOGLOBIN 10.9 G/DL (11.5-16.0); LYMPHOCYTES # (AUTO) 1.4 X 10^3 (1.0-4.0); LYMPHOCYTES % (AUTO) 38 % (12-44); MEAN CORPUSCULAR HGB CONC 32 G/DL (32-36); MEAN CORPUSCULAR VOLUME 85 FL (80-99); MEAN PLATELET VOLUME 8.1 FL (7.4-10.4); MONOCYTES # (AUTO) 0.3 X 10^3 (0.0-1.0); MONOCYTES % (AUTO) 9 % (0-12); NEUTROPHILS # (AUTO) 1.7 X 10^3 (1.8-7.8); NEUTROPHILS % (AUTO) 47 % (42-75); PLATELET COUNT 335 10^3/uL (130-400); WHITE BLOOD COUNT 3.7 10^3/uL (4.3-11.0)
[2018-04-17 09:28] LABS: MEAN CORPUSCULAR HEMOGLOBIN 27 PG (25-34)
[2018-04-17 09:46] LABS: ALANINE AMINOTRANSFERASE 82 U/L (0-55); ALBUMIN 3.7 GM/DL (3.2-4.5); ALKALINE PHOSPHATASE 87 U/L (40-136); BILIRUBIN,TOTAL 0.2 MG/DL (0.1-1.0); BUN/CREATININE RATIO 18; CALCIUM 8.7 MG/DL (8.5-10.1); CARBON DIOXIDE 23 MMOL/L (21-32); CHLORIDE 107 MMOL/L (98-107); CREATININE SERUM 0.79 MG/DL (0.60-1.30); GFR ESTIMATED > 60; GLUCOSE 128 MG/DL (70-105); MAGNESIUM 2.2 MG/DL (1.8-2.4); POTASSIUM 3.9 MMOL/L (3.6-5.0); SODIUM 138 MMOL/L (135-145); TOTAL PROTEIN 6.4 GM/DL (6.4-8.2)
[2018-04-24 09:59] LABS: BASOPHILS % (AUTO) 0 % (0-10); EOSINOPHILS % (AUTO) 14 % (0-10); HEMATOCRIT 36 % (35-52); HEMOGLOBIN 11.8 G/DL (11.5-16.0); LYMPHOCYTES # (AUTO) 2.2 X 10^3 (1.0-4.0); LYMPHOCYTES % (AUTO) 31 % (12-44); MEAN CORPUSCULAR HEMOGLOBIN 27 PG (25-34); MEAN CORPUSCULAR HGB CONC 33 G/DL (32-36); MEAN CORPUSCULAR VOLUME 83 FL (80-99); MEAN PLATELET VOLUME 8.5 FL (7.4-10.4); MONOCYTES # (AUTO) 0.4 X 10^3 (0.0-1.0); MONOCYTES % (AUTO) 6 % (0-12); NEUTROPHILS # (AUTO) 3.5 X 10^3 (1.8-7.8); NEUTROPHILS % (AUTO) 49 % (42-75); PLATELET COUNT 325 10^3/uL (130-400); RED CELL DISTRIBUTION WIDTH 13.9 % (10.0-14.5); WHITE BLOOD COUNT 7.1 10^3/uL (4.3-11.0)
[2018-04-24 10:13] LABS: BUN/CREATININE RATIO 16; CALCIUM 9.1 MG/DL (8.5-10.1); CARBON DIOXIDE 24 MMOL/L (21-32); CHLORIDE 103 MMOL/L (98-107); CREATININE SERUM 0.89 MG/DL (0.60-1.30); GFR ESTIMATED > 60; GLUCOSE 96 MG/DL (70-105); POTASSIUM 3.6 MMOL/L (3.6-5.0); SODIUM 136 MMOL/L (135-145)
[2018-05-01 09:14] LABS: BASOPHILS # (AUTO) 0.1 10^3/uL (0.0-0.1); BASOPHILS % (AUTO) 1 % (0-10); EOSINOPHILS # (AUTO) 0.2 10^3/uL (0.0-0.3); EOSINOPHILS % (AUTO) 3 % (0-10); HEMATOCRIT 34 % (35-52); HEMOGLOBIN 11.1 G/DL (11.5-16.0); LYMPHOCYTES # (AUTO) 1.5 X 10^3 (1.0-4.0); LYMPHOCYTES % (AUTO) 33 % (12-44); MEAN CORPUSCULAR HEMOGLOBIN 27 PG (25-34); MEAN CORPUSCULAR HGB CONC 33 G/DL (32-36); MEAN CORPUSCULAR VOLUME 84 FL (80-99); MEAN PLATELET VOLUME 8.5 FL (7.4-10.4); MONOCYTES # (AUTO) 0.5 X 10^3 (0.0-1.0); MONOCYTES % (AUTO) 11 % (0-12); NEUTROPHILS # (AUTO) 2.4 X 10^3 (1.8-7.8); NEUTROPHILS % (AUTO) 52 % (42-75); PLATELET COUNT 229 10^3/uL (130-400); RED CELL DISTRIBUTION WIDTH 14.8 % (10.0-14.5); WHITE BLOOD COUNT 4.5 10^3/uL (4.3-11.0)
[2018-05-01 09:34] LABS: ALANINE AMINOTRANSFERASE 138 U/L (0-55); ALBUMIN 3.8 GM/DL (3.2-4.5); ALKALINE PHOSPHATASE 97 U/L (40-136); BILIRUBIN,TOTAL 0.4 MG/DL (0.1-1.0); BUN/CREATININE RATIO 13; CALCIUM 9.2 MG/DL (8.5-10.1); CARBON DIOXIDE 23 MMOL/L (21-32); CHLORIDE 107 MMOL/L (98-107); CREATININE SERUM 0.82 MG/DL (0.60-1.30); GFR ESTIMATED > 60; GLUCOSE 110 MG/DL (70-105); SODIUM 139 MMOL/L (135-145); TOTAL PROTEIN 6.4 GM/DL (6.4-8.2)
[2018-05-08 10:11] LABS: BASOPHILS % (AUTO) 0 % (0-10); EOSINOPHILS # (AUTO) 0.6 10^3/uL (0.0-0.3); EOSINOPHILS % (AUTO) 7 % (0-10); HEMATOCRIT 36 % (35-52); HEMOGLOBIN 11.8 G/DL (11.5-16.0); LYMPHOCYTES # (AUTO) 1.9 X 10^3 (1.0-4.0); LYMPHOCYTES % (AUTO) 21 % (12-44); MEAN CORPUSCULAR HEMOGLOBIN 28 PG (25-34); MEAN CORPUSCULAR HGB CONC 33 G/DL (32-36); MEAN CORPUSCULAR VOLUME 84 FL (80-99); MEAN PLATELET VOLUME 8.6 FL (7.4-10.4); MONOCYTES # (AUTO) 0.6 X 10^3 (0.0-1.0); MONOCYTES % (AUTO) 7 % (0-12); NEUTROPHILS # (AUTO) 5.7 X 10^3 (1.8-7.8); NEUTROPHILS % (AUTO) 65 % (42-75); PLATELET COUNT 338 10^3/uL (130-400); WHITE BLOOD COUNT 8.9 10^3/uL (4.3-11.0)
[2018-05-08 10:30] LABS: ALANINE AMINOTRANSFERASE 47 U/L (0-55); ALBUMIN 3.7 GM/DL (3.2-4.5); ALKALINE PHOSPHATASE 80 U/L (40-136); BILIRUBIN,TOTAL 0.2 MG/DL (0.1-1.0); BUN/CREATININE RATIO 21; CALCIUM 9.2 MG/DL (8.5-10.1); CARBON DIOXIDE 23 MMOL/L (21-32); CHLORIDE 108 MMOL/L (98-107); CREATININE SERUM 0.84 MG/DL (0.60-1.30); GFR ESTIMATED > 60; GLUCOSE 98 MG/DL (70-105); POTASSIUM 4.3 MMOL/L (3.6-5.0); SODIUM 138 MMOL/L (135-145); TOTAL PROTEIN 6.4 GM/DL (6.4-8.2)
[2018-05-15 10:10] LABS: BASOPHILS # (AUTO) 0.1 10^3/uL (0.0-0.1); BASOPHILS % (AUTO) 1 % (0-10); EOSINOPHILS # (AUTO) 0.2 10^3/uL (0.0-0.3); EOSINOPHILS % (AUTO) 4 % (0-10); HEMATOCRIT 33 % (35-52); HEMOGLOBIN 11.2 G/DL (11.5-16.0); LYMPHOCYTES # (AUTO) 1.3 X 10^3 (1.0-4.0); LYMPHOCYTES % (AUTO) 31 % (12-44); MEAN CORPUSCULAR HEMOGLOBIN 28 PG (25-34); MEAN CORPUSCULAR HGB CONC 34 G/DL (32-36); MEAN CORPUSCULAR VOLUME 84 FL (80-99); MEAN PLATELET VOLUME 8.2 FL (7.4-10.4); MONOCYTES # (AUTO) 0.4 X 10^3 (0.0-1.0); MONOCYTES % (AUTO) 10 % (0-12); NEUTROPHILS # (AUTO) 2.3 X 10^3 (1.8-7.8); NEUTROPHILS % (AUTO) 54 % (42-75); PLATELET COUNT 249 10^3/uL (130-400); RED CELL DISTRIBUTION WIDTH 16.3 % (10.0-14.5); WHITE BLOOD COUNT 4.2 10^3/uL (4.3-11.0)
[2018-05-15 10:32] LABS: ALANINE AMINOTRANSFERASE 103 U/L (0-55); ALBUMIN 3.7 GM/DL (3.2-4.5); ALKALINE PHOSPHATASE 99 U/L (40-136); BILIRUBIN,TOTAL 0.3 MG/DL (0.1-1.0); BUN/CREATININE RATIO 16; CALCIUM 9.1 MG/DL (8.5-10.1); CARBON DIOXIDE 23 MMOL/L (21-32); CHLORIDE 109 MMOL/L (98-107); CREATININE SERUM 0.79 MG/DL (0.60-1.30); GFR ESTIMATED > 60; GLUCOSE 106 MG/DL (70-105); MAGNESIUM 2.2 MG/DL (1.8-2.4); SODIUM 139 MMOL/L (135-145); TOTAL PROTEIN 6.5 GM/DL (6.4-8.2)
[2018-05-22 11:53] LABS: BASOPHILS % (AUTO) 0 % (0-10); EOSINOPHILS # (AUTO) 0.8 10^3/uL (0.0-0.3); EOSINOPHILS % (AUTO) 12 % (0-10); HEMATOCRIT 35 % (35-52); HEMOGLOBIN 11.7 G/DL (11.5-16.0); LYMPHOCYTES # (AUTO) 1.8 X 10^3 (1.0-4.0); LYMPHOCYTES % (AUTO) 25 % (12-44); MEAN CORPUSCULAR HEMOGLOBIN 28 PG (25-34); MEAN CORPUSCULAR HGB CONC 33 G/DL (32-36); MEAN CORPUSCULAR VOLUME 83 FL (80-99); MEAN PLATELET VOLUME 8.5 FL (7.4-10.4); MONOCYTES # (AUTO) 0.6 X 10^3 (0.0-1.0); MONOCYTES % (AUTO) 8 % (0-12); NEUTROPHILS # (AUTO) 3.8 X 10^3 (1.8-7.8); NEUTROPHILS % (AUTO) 55 % (42-75); PLATELET COUNT 295 10^3/uL (130-400); RED CELL DISTRIBUTION WIDTH 16.1 % (10.0-14.5)
[2018-05-22 12:17] LABS: ALANINE AMINOTRANSFERASE 129 U/L (0-55); ALBUMIN 3.7 GM/DL (3.2-4.5); ALKALINE PHOSPHATASE 94 U/L (40-136); BILIRUBIN,TOTAL 0.3 MG/DL (0.1-1.0); BUN/CREATININE RATIO 14; CALCIUM 9.2 MG/DL (8.5-10.1); CARBON DIOXIDE 23 MMOL/L (21-32); CHLORIDE 108 MMOL/L (98-107); CREATININE SERUM 0.78 MG/DL (0.60-1.30); GFR ESTIMATED > 60; GLUCOSE 85 MG/DL (70-105); POTASSIUM 3.9 MMOL/L (3.6-5.0); SODIUM 139 MMOL/L (135-145); TOTAL PROTEIN 6.6 GM/DL (6.4-8.2)
[2018-05-29 09:44] LABS: BASOPHILS % (AUTO) 1 % (0-10); EOSINOPHILS # (AUTO) 0.2 10^3/uL (0.0-0.3); EOSINOPHILS % (AUTO) 7 % (0-10); HEMATOCRIT 33 % (35-52); HEMOGLOBIN 10.8 G/DL (11.5-16.0); LYMPHOCYTES # (AUTO) 1.2 X 10^3 (1.0-4.0); LYMPHOCYTES % (AUTO) 33 % (12-44); MEAN CORPUSCULAR HEMOGLOBIN 28 PG (25-34); MEAN CORPUSCULAR HGB CONC 33 G/DL (32-36); MEAN CORPUSCULAR VOLUME 85 FL (80-99); MEAN PLATELET VOLUME 8.4 FL (7.4-10.4); MONOCYTES # (AUTO) 0.3 X 10^3 (0.0-1.0); MONOCYTES % (AUTO) 9 % (0-12); NEUTROPHILS # (AUTO) 1.8 X 10^3 (1.8-7.8); NEUTROPHILS % (AUTO) 50 % (42-75); PLATELET COUNT 215 10^3/uL (130-400); RED CELL DISTRIBUTION WIDTH 17.4 % (10.0-14.5); WHITE BLOOD COUNT 3.7 10^3/uL (4.3-11.0)
[2018-05-29 09:58] LABS: ALANINE AMINOTRANSFERASE 119 U/L (0-55); ALBUMIN 3.5 GM/DL (3.2-4.5); ALKALINE PHOSPHATASE 93 U/L (40-136); BILIRUBIN,TOTAL 0.3 MG/DL (0.1-1.0); BUN/CREATININE RATIO 18; CALCIUM 8.9 MG/DL (8.5-10.1); CARBON DIOXIDE 23 MMOL/L (21-32); CHLORIDE 109 MMOL/L (98-107); CREATININE SERUM 0.78 MG/DL (0.60-1.30); GFR ESTIMATED > 60; GLUCOSE 100 MG/DL (70-105); POTASSIUM 4.1 MMOL/L (3.6-5.0); SODIUM 140 MMOL/L (135-145); TOTAL PROTEIN 6.2 GM/DL (6.4-8.2)
[2018-06-05 15:11] LABS: BASOPHILS % (AUTO) 0 % (0-10); EOSINOPHILS # (AUTO) 0.2 10^3/uL (0.0-0.3); EOSINOPHILS % (AUTO) 3 % (0-10); HEMATOCRIT 35 % (35-52); HEMOGLOBIN 11.6 G/DL (11.5-16.0); LYMPHOCYTES # (AUTO) 1.9 X 10^3 (1.0-4.0); LYMPHOCYTES % (AUTO) 31 % (12-44); MEAN CORPUSCULAR HEMOGLOBIN 28 PG (25-34); MEAN CORPUSCULAR HGB CONC 33 G/DL (32-36); MEAN CORPUSCULAR VOLUME 84 FL (80-99); MEAN PLATELET VOLUME 8.5 FL (7.4-10.4); MONOCYTES # (AUTO) 0.4 X 10^3 (0.0-1.0); MONOCYTES % (AUTO) 7 % (0-12); NEUTROPHILS # (AUTO) 3.5 X 10^3 (1.8-7.8); NEUTROPHILS % (AUTO) 59 % (42-75); PLATELET COUNT 241 10^3/uL (130-400); RED CELL DISTRIBUTION WIDTH 16.7 % (10.0-14.5)
[2018-06-05 15:29] LABS: ALANINE AMINOTRANSFERASE 67 U/L (0-55); ALBUMIN 3.8 GM/DL (3.2-4.5); ALKALINE PHOSPHATASE 91 U/L (40-136); BILIRUBIN,TOTAL 0.3 MG/DL (0.1-1.0); BUN/CREATININE RATIO 10; CALCIUM 9.3 MG/DL (8.5-10.1); CARBON DIOXIDE 19 MMOL/L (21-32); CHLORIDE 107 MMOL/L (98-107); CREATININE SERUM 0.83 MG/DL (0.60-1.30); GFR ESTIMATED > 60; GLUCOSE 101 MG/DL (70-105); POTASSIUM 3.7 MMOL/L (3.6-5.0); SODIUM 137 MMOL/L (135-145); TOTAL PROTEIN 6.7 GM/DL (6.4-8.2)
[2018-06-12 09:14] LABS: BASOPHILS % (AUTO) 1 % (0-10); EOSINOPHILS # (AUTO) 0.1 10^3/uL (0.0-0.3); EOSINOPHILS % (AUTO) 3 % (0-10); HEMATOCRIT 34 % (35-52); HEMOGLOBIN 11.2 G/DL (11.5-16.0); LYMPHOCYTES # (AUTO) 1.6 X 10^3 (1.0-4.0); LYMPHOCYTES % (AUTO) 37 % (12-44); MEAN CORPUSCULAR HEMOGLOBIN 29 PG (25-34); MEAN CORPUSCULAR HGB CONC 33 G/DL (32-36); MEAN CORPUSCULAR VOLUME 85 FL (80-99); MEAN PLATELET VOLUME 8.6 FL (7.4-10.4); MONOCYTES # (AUTO) 0.4 X 10^3 (0.0-1.0); MONOCYTES % (AUTO) 9 % (0-12); NEUTROPHILS # (AUTO) 2.2 X 10^3 (1.8-7.8); NEUTROPHILS % (AUTO) 50 % (42-75); PLATELET COUNT 207 10^3/uL (130-400); RED CELL DISTRIBUTION WIDTH 17.7 % (10.0-14.5); WHITE BLOOD COUNT 4.4 10^3/uL (4.3-11.0)
[2018-06-12 09:34] LABS: ALANINE AMINOTRANSFERASE 48 U/L (0-55); ALBUMIN 3.6 GM/DL (3.2-4.5); ALKALINE PHOSPHATASE 87 U/L (40-136); BILIRUBIN,TOTAL 0.4 MG/DL (0.1-1.0); BUN/CREATININE RATIO 21; CALCIUM 9.1 MG/DL (8.5-10.1); CARBON DIOXIDE 22 MMOL/L (21-32); CHLORIDE 108 MMOL/L (98-107); CREATININE SERUM 0.76 MG/DL (0.60-1.30); GFR ESTIMATED > 60; GLUCOSE 101 MG/DL (70-105); MAGNESIUM 2.2 MG/DL (1.8-2.4); SODIUM 140 MMOL/L (135-145); TOTAL PROTEIN 6.4 GM/DL (6.4-8.2)
[~2018-06-19] VITALS: Ht 165.1 cm; Wt 110.2 kg
[~2018-06-19 13:10] MED LIST changes: +D5W 500 ML IV (CANCER CTR) 500 ML IV SCH; +D5W IV SCH; +FLUOROURACIL 0.6 GM in SYRINGE-IVPB 1 SYRINGE IV SCH; +FLUOROURACIL 0.8 GM in SYRINGE-IVPB 1 SYRINGE IV SCH; +FLUOROURACIL 2.5 GM, FLUOROURACIL 1 GM, FLUOROURACIL 100 MG in NS (IVPB) CANCER CENTER ... IV SCH; +FLUOROURACIL 4,800 MG in NS (IVPB) CANCER CENTER 51.2 ML IV SCH; +FLUOROURACIL 400 MG in SYRINGE-IVPB 1 SYRINGE IV SCH; +FLUOROURACIL IV SCH; +FOSAPREPITANT DIMEGLUMINE 150 MG in NS (IVPB) CANCER CENTER ONLY 150 ML IV SCH; +LEUCOVORIN CALCIUM 400 MG in D5W 250 ML IVPB (CANCER CTR) 250 ML IV SCH; +LEUCOVORIN CALCIUM 500 MG, LEUCOVORIN CALCIUM 100 MG in D5W 250 ML IVPB (CANCER CTR) 25... IV SCH; +LEUCOVORIN CALCIUM 500 MG, LEUCOVORIN CALCIUM 200 MG, LEUCOVORIN CALCIUM 100 MG in D5W ... IV SCH; +NS IV SCH; +ONDANSETRON 8 MG, DEXAMETHASONE 4 MG/NS 50 ML IVPB (Cancer Ctr) IV SCH; +OXALIPLATIN 160 MG in D5W 250 ML IVPB (CANCER CTR) 250 ML IV SCH; +OXALIPLATIN IV SCH; +PALONOSETRON HCL 0.25 MG, DEXAMETHASONE INJ (CANCER CTR) 4 MG in NS (IVPB) CANCER CENTE... IV SCH; +PALONOSETRON HCL 0.25 MG, DEXAMETHASONE INJECTION 10 MG in NS (IVPB) CANCER CENTER 50 ML IV SCH; +morphine INJ 10 MG/ML 1ML (SYR OR VIAL) ONE
[2018-06-19 13:31] LABS: BASOPHILS % (AUTO) 1 % (0-10); EOSINOPHILS # (AUTO) 0.1 10^3/uL (0.0-0.3); EOSINOPHILS % (AUTO) 2 % (0-10); HEMATOCRIT 34 % (35-52); HEMOGLOBIN 10.9 G/DL (11.5-16.0); LYMPHOCYTES # (AUTO) 2.1 X 10^3 (1.0-4.0); LYMPHOCYTES % (AUTO) 33 % (12-44); MEAN CORPUSCULAR HEMOGLOBIN 28 PG (25-34); MEAN CORPUSCULAR HGB CONC 32 G/DL (32-36); MEAN CORPUSCULAR VOLUME 86 FL (80-99); MEAN PLATELET VOLUME 8.8 FL (7.4-10.4); MONOCYTES # (AUTO) 0.5 X 10^3 (0.0-1.0); MONOCYTES % (AUTO) 8 % (0-12); NEUTROPHILS # (AUTO) 3.6 X 10^3 (1.8-7.8); NEUTROPHILS % (AUTO) 57 % (42-75); PLATELET COUNT 328 10^3/uL (130-400); RED CELL DISTRIBUTION WIDTH 17.5 % (10.0-14.5); WHITE BLOOD COUNT 6.3 10^3/uL (4.3-11.0)
[2018-06-19 13:48] LABS: ALANINE AMINOTRANSFERASE 41 U/L (0-55); ALBUMIN 3.9 GM/DL (3.2-4.5); ALKALINE PHOSPHATASE 88 U/L (40-136); BILIRUBIN,TOTAL 0.2 MG/DL (0.1-1.0); BUN/CREATININE RATIO 16; CALCIUM 9.3 MG/DL (8.5-10.1); CARBON DIOXIDE 19 MMOL/L (21-32); CHLORIDE 107 MMOL/L (98-107); CREATININE SERUM 0.81 MG/DL (0.60-1.30); GFR ESTIMATED > 60; GLUCOSE 110 MG/DL (70-105); POTASSIUM 3.9 MMOL/L (3.6-5.0); SODIUM 140 MMOL/L (135-145); TOTAL PROTEIN 7.1 GM/DL (6.4-8.2)
== END 2018-06-23 | disposition home or self-care (01) ==
LOC: ONC 13:10
PROVIDERS: ATTEND Internal Medicine Hematology & Oncology
DX: Z51.11 Encounter for antineoplastic chemotherapy (principal); C18.7 Malignant neoplasm of sigmoid colon; C77.2 Secondary and unspecified malignant neoplasm of intra-abdominal lymph nodes; I73.9 Peripheral vascular disease, unspecified; E66.9 Obesity, unspecified; Z68.41 Body mass index [BMI] 40.0-44.9, adult; Z79.899 Other long term (current) drug therapy
CPT/HCPCS: 36415; 36591; 80048; 80053; 82378; 83735; 85025; 96367; 96368; 96374; 96375; 96411; 96413; 96416; 99213

== ENCOUNTER 2018-09-17 11:37 | Outpatient (RCR) | payer OTHER ==
[2018-06-26 10:12] LABS: BASOPHILS % (AUTO) 0 % (0-10); EOSINOPHILS # (AUTO) 0.1 10^3/uL (0.0-0.3); EOSINOPHILS % (AUTO) 2 % (0-10); HEMATOCRIT 33 % (35-52); HEMOGLOBIN 10.9 G/DL (11.5-16.0); LYMPHOCYTES # (AUTO) 1.3 X 10^3 (1.0-4.0); LYMPHOCYTES % (AUTO) 24 % (12-44); MEAN CORPUSCULAR HEMOGLOBIN 28 PG (25-34); MEAN CORPUSCULAR HGB CONC 33 G/DL (32-36); MEAN CORPUSCULAR VOLUME 86 FL (80-99); MEAN PLATELET VOLUME 8.3 FL (7.4-10.4); MONOCYTES # (AUTO) 0.5 X 10^3 (0.0-1.0); MONOCYTES % (AUTO) 9 % (0-12); NEUTROPHILS # (AUTO) 3.5 X 10^3 (1.8-7.8); NEUTROPHILS % (AUTO) 64 % (42-75); PLATELET COUNT 237 10^3/uL (130-400); RED CELL DISTRIBUTION WIDTH 17.8 % (10.0-14.5); WHITE BLOOD COUNT 5.5 10^3/uL (4.3-11.0)
[2018-06-26 10:28] LABS: ALANINE AMINOTRANSFERASE 58 U/L (0-55); ALBUMIN 3.8 GM/DL (3.2-4.5); ALKALINE PHOSPHATASE 80 U/L (40-136); BILIRUBIN,TOTAL 0.3 MG/DL (0.1-1.0); BUN/CREATININE RATIO 14; CALCIUM 9.1 MG/DL (8.5-10.1); CARBON DIOXIDE 20 MMOL/L (21-32); CHLORIDE 108 MMOL/L (98-107); CREATININE SERUM 0.79 MG/DL (0.60-1.30); GFR ESTIMATED > 60; GLUCOSE 90 MG/DL (70-105); SODIUM 140 MMOL/L (135-145); TOTAL PROTEIN 6.6 GM/DL (6.4-8.2)
[2018-09-17 10:36] LABS: BASOPHILS % (AUTO) 0 % (0-10); EOSINOPHILS # (AUTO) 0.1 10^3/uL (0.0-0.3); EOSINOPHILS % (AUTO) 2 % (0-10); HEMATOCRIT 34 % (35-52); HEMOGLOBIN 11.2 G/DL (11.5-16.0); LYMPHOCYTES # (AUTO) 1.5 X 10^3 (1.0-4.0); LYMPHOCYTES % (AUTO) 23 % (12-44); MEAN CORPUSCULAR HEMOGLOBIN 28 PG (25-34); MEAN CORPUSCULAR HGB CONC 33 G/DL (32-36); MEAN CORPUSCULAR VOLUME 85 FL (80-99); MEAN PLATELET VOLUME 8.6 FL (7.4-10.4); MONOCYTES # (AUTO) 0.4 X 10^3 (0.0-1.0); MONOCYTES % (AUTO) 6 % (0-12); NEUTROPHILS # (AUTO) 4.7 X 10^3 (1.8-7.8); NEUTROPHILS % (AUTO) 70 % (42-75); PLATELET COUNT 321 10^3/uL (130-400); RED CELL DISTRIBUTION WIDTH 13.4 % (10.0-14.5); WHITE BLOOD COUNT 6.8 10^3/uL (4.3-11.0)
[2018-09-17 10:56] LABS: ALANINE AMINOTRANSFERASE 24 U/L (0-55); ALBUMIN 3.6 GM/DL (3.2-4.5); ALKALINE PHOSPHATASE 63 U/L (40-136); BILIRUBIN,TOTAL 0.2 MG/DL (0.1-1.0); BUN/CREATININE RATIO 15; CARBON DIOXIDE 24 MMOL/L (21-32); CHLORIDE 108 MMOL/L (98-107); CREATININE SERUM 0.84 MG/DL (0.60-1.30); GFR ESTIMATED > 60; GLUCOSE 113 MG/DL (70-105); POTASSIUM 3.8 MMOL/L (3.6-5.0); SODIUM 141 MMOL/L (135-145); TOTAL PROTEIN 6.4 GM/DL (6.4-8.2)
[~2018-09-17 11:37] MED LIST changes: -FLUOROURACIL 0.6 GM in SYRINGE-IVPB 1 SYRINGE IV SCH; -FLUOROURACIL 0.8 GM in SYRINGE-IVPB 1 SYRINGE IV SCH; -FLUOROURACIL 4,800 MG in NS (IVPB) CANCER CENTER 51.2 ML IV SCH; -FLUOROURACIL IV SCH; -LEUCOVORIN CALCIUM 500 MG, LEUCOVORIN CALCIUM 100 MG in D5W 250 ML IVPB (CANCER CTR) 25... IV SCH; -LEUCOVORIN CALCIUM 500 MG, LEUCOVORIN CALCIUM 200 MG, LEUCOVORIN CALCIUM 100 MG in D5W ... IV SCH; -NS IV SCH; -OXALIPLATIN 160 MG in D5W 250 ML IVPB (CANCER CTR) 250 ML IV SCH; -PALONOSETRON HCL 0.25 MG, DEXAMETHASONE INJECTION 10 MG in NS (IVPB) CANCER CENTER 50 ML IV SCH; -morphine INJ 10 MG/ML 1ML (SYR OR VIAL) ONE
== END 2018-09-24 | disposition home or self-care (01) ==
LOC: ONC 11:37
PROVIDERS: ATTEND Internal Medicine Hematology & Oncology
DX: C18.7 Malignant neoplasm of sigmoid colon (principal); C77.2 Secondary and unspecified malignant neoplasm of intra-abdominal lymph nodes; I73.9 Peripheral vascular disease, unspecified; E66.9 Obesity, unspecified; Z68.41 Body mass index [BMI] 40.0-44.9, adult; Z79.899 Other long term (current) drug therapy
CPT/HCPCS: 36591; 80053; 82378; 83735; 85025

== ENCOUNTER → 2018-11-15 | Outpatient (CLI) | payer OTHER ==
[~2018-11-15] MED LIST changes: +BISA5TAB PO; +CETI10TA17 PO; -D5W 500 ML IV (CANCER CTR) 500 ML IV SCH; -D5W IV SCH; -FLUOROURACIL 2.5 GM, FLUOROURACIL 1 GM, FLUOROURACIL 100 MG in NS (IVPB) CANCER CENTER ... IV SCH; -FLUOROURACIL 400 MG in SYRINGE-IVPB 1 SYRINGE IV SCH; -FOSAPREPITANT DIMEGLUMINE 150 MG in NS (IVPB) CANCER CENTER ONLY 150 ML IV SCH; -LEUCOVORIN CALCIUM 400 MG in D5W 250 ML IVPB (CANCER CTR) 250 ML IV SCH; +MELA3TAB PO; -ONDANSETRON 8 MG, DEXAMETHASONE 4 MG/NS 50 ML IVPB (Cancer Ctr) IV SCH; -OXALIPLATIN IV SCH; -PALONOSETRON HCL 0.25 MG, DEXAMETHASONE INJ (CANCER CTR) 4 MG in NS (IVPB) CANCER CENTE... IV SCH; +PANT40TA3 PO; +PHEN37.53 PO
--- NOTE | 2018-11-15 11:32 | Diagnostic Imaging Report ---
INDICATION: Routine screening. No prior mammograms are available for comparison. This is a baseline study. 2-D and 3-D bilateral screening mammography was performed with CAD. There are bilateral breast implants. Contours appear to be smooth. Left chest port has the reservoir in the left axilla. Mild fibroglandular tissue is identified bilaterally. There are benign calcifications in both breasts. No dominant mass or malignant-appearing microcalcifications are seen. Axillae are unremarkable. IMPRESSION: BI-RADS Category 2 No mammographic features suspicious for malignancy are identified. ACR BI-RADS Category 2: Benign findings. Result letter will be mailed to the patient. Note: At least 10% of breast cancer is not imaged by mammography. Dictated by: Dictated on workstation # [id number]
== END ==
LOC: RAD 08:42
PROVIDERS: ATTEND Obstetrics & Gynecology
DX: Z12.31 Encounter for screening mammogram for malignant neoplasm of breast (principal); Z95.828 Presence of other vascular implants and grafts
CPT/HCPCS: 77067

== ENCOUNTER 2018-11-20 11:30 | Outpatient (CLI) | payer OTHER ==
[~2018-11-20] VITALS: Ht 162 cm; Wt 114.9 kg
[~2018-11-20 11:30] MED LIST changes: -BISA5TAB PO; -CETI10TA17 PO; -MELA3TAB PO; -PANT40TA3 PO; -PHEN37.53 PO
[2018-11-20] MEDS ORDERED: PHEN37.53 PO (11:41)
[2018-11-20] MEDS ORDERED: CETI10TA17 PO (11:41)
[2018-11-20] MEDS ORDERED: MELA3TAB PO (11:41)
[2018-11-20] MEDS ORDERED: PANT40TA3 PO (11:41)
[2018-11-20] MEDS ORDERED: BISA5TAB PO (11:43)
[2018-11-20 11:45] VITALS: BP 116/73
[2018-11-20 12:12] LABS: BASOPHILS % (AUTO) 0 % (0-10); EOSINOPHILS # (AUTO) 0.1 10^3/uL (0.0-0.3); EOSINOPHILS % (AUTO) 1 % (0-10); HEMATOCRIT 39 % (35-52); LYMPHOCYTES # (AUTO) 1.7 X 10^3 (1.0-4.0); LYMPHOCYTES % (AUTO) 25 % (12-44); MEAN CORPUSCULAR HEMOGLOBIN 27 PG (25-34); MEAN CORPUSCULAR HGB CONC 33 G/DL (32-36); MEAN CORPUSCULAR VOLUME 82 FL (80-99); MEAN PLATELET VOLUME 8.9 FL (7.4-10.4); MONOCYTES # (AUTO) 0.3 X 10^3 (0.0-1.0); MONOCYTES % (AUTO) 4 % (0-12); NEUTROPHILS # (AUTO) 4.8 X 10^3 (1.8-7.8); NEUTROPHILS % (AUTO) 69 % (42-75); PLATELET COUNT 368 10^3/uL (130-400); RED CELL DISTRIBUTION WIDTH 14.4 % (10.0-14.5); WHITE BLOOD COUNT 6.9 10^3/uL (4.3-11.0)
[2018-11-20 12:14] LABS: BILIRUBIN,URINE NEGATIVE (NEGATIVE); CLARITY,URINE CLEAR; COLOR,URINE YELLOW; GLUCOSE, URINE (UA) NEGATIVE (NEGATIVE); KETONES,URINE NEGATIVE (NEGATIVE); LEUKOCYTE ESTERASE ,URINE NEGATIVE (NEGATIVE); NITRITE,URINE NEGATIVE (NEGATIVE); PH,URINE 5 (5-9); PROTEIN,URINE NEGATIVE (NEGATIVE)
[2018-11-20 12:22] LABS: BACTERIA,URINE TRACE /HPF; RBC,URINE 0-2 /HPF; WBC,URINE RARE /HPF
== END 2018-11-20 14:29 | disposition home or self-care (01) ==
LOC: PREOP 11:30
PROVIDERS: ATTEND Obstetrics & Gynecology
DX: Z01.812 Encounter for preprocedural laboratory examination (principal); N81.89 Other female genital prolapse
CPT/HCPCS: 36415; 81000; 85025; 86850; 86900; 86901; 87081

== ENCOUNTER 2018-11-26 09:00 | Inpatient (IN) | payer OTHER ==
[~2018-11-26] VITALS: Ht 162 cm; Wt 114.9 kg
[~2018-11-26 09:00] MED LIST changes: +BISA5TAB PO; +CETI10TA17 PO; +MELA3TAB65 PO; +PANT40TA3 PO; +PHEN37.53 PO
[2018-12-10] VITALS (17 sets, daily range): BP systolic 99–129; BP diastolic 62–87
[2018-12-10] MEDS ORDERED: ceFAZolin INJECTION 1,000 MG in WATER (STERILE) FOR INJECTION 10 ML IV ONE (07:45)
[2018-12-10] MEDS ORDERED: metroNIDAZOLE 500MG/100ML IVPB 100 ML IV ONE (07:45)
[2018-12-10] MEDS: LACTATED RINGERS 1,000 ML IV PRN ×2 (07:50→10:49)
[2018-12-10] MEDS ORDERED: CATHETER FLUSH 10 ML SYR IV PRN (08:00)
[2018-12-10] MEDS ORDERED: ESTRADIOL VAGINAL CREAM 42.5 GM (ESTRACE) VG ONE (08:17)
[2018-12-10] MEDS ORDERED: VASOPRESSIN INJECTION 20 UNIT/ML VIAL ONE (08:17)
[2018-12-10] MEDS ORDERED: BUP/EPI 0.5% 1:200,000 (SENSORCAINE) 30 ML VIAL ONE (08:17)
[2018-12-10] MEDS ORDERED: NS (IVPB) 100 ML ONE (08:17)
--- NOTE | 2018-12-10 08:28 | Progress Note-Pre Operative ---
Pre-Operative Progress Note H&P Reviewed The H&P was reviewed, patient examined and no changes noted. Date Seen by Provider: Dec 10, 2018 Time Seen by Provider: 08:20 Date H&P Reviewed: Dec 10, 2018 Time H&P Reviewed: 08:15 Pre-Operative Diagnosis: genital prolapse, cystocele, stress incontinence DENISSE MEJIA DO Dec 10, 2018 8:28 am POS
[2018-12-10] MEDS ORDERED: MIDAZOLAM 2 MG/2 ML (VERSED) VIAL ONE (08:39)
[2018-12-10] MEDS ORDERED: fentaNYL INJECTION 100 MCG/2 ML AMP ONE (08:40)
[2018-12-10] MEDS ORDERED: HYDROmorphone 2 MG/ML VIAL (DILAUDID) ONE (10:57)
[2018-12-10] MEDS ORDERED: ONDANSETRON 4 MG/2 ML (SDV) Z0FRAN ONE (10:57)
[2018-12-10] MEDS ORDERED: SEVOFLURANE (ULTANE) 15 ML INHAL SOLN ONE ×7 (10:57→12:56)
[2018-12-10] MEDS ORDERED: proPOfol 200 MG/20 ML (DIPRIVAN) VIAL IV ONE ×2 (10:57→12:39)
[2018-12-10] MEDS ORDERED: LIDOCAINE PF 2% 5 ML (XYLOCAINE) VIAL ONE (10:57)
[2018-12-10] MEDS ORDERED: ROCURONIUM 10 MG/ML 5 ML SYRINGE IV ONE ×2 (10:57→12:30)
[2018-12-10] MEDS ORDERED: DEXAMETHASONE 10 MG/ML (DECADRON) 1 ML VIAL ONE (10:57)
[2018-12-10] MEDS ORDERED: LIDOCAINE PF 0.5% 50 ML (XYLOCAINE) VIAL ONE (10:57)
[2018-12-10] MEDS ORDERED: GLYCOPYRROLATE 0.2 MG/ML (ROBINUL) 2 ML VIAL ONE (11:03)
[2018-12-10] MEDS ORDERED: KETOROLAC 30 MG/ML VIAL ONE (11:03)
[2018-12-10] MEDS ORDERED: NEOSTIGMINE 3 MG/3 ML VIAL ONE (11:03)
[2018-12-10] MEDS ORDERED: INDIGO CARMINE 8 MG/ML 5 ML AMP ONE (11:11)
[2018-12-10] MEDS: KETOROLAC 30 MG/ML VIAL IV SCH ×2 (12:30→18:19)
[2018-12-10] MEDS ORDERED: morphine INJ 4 MG/ML 1 ML (VIAL/SYRINGE) IVP PRN (12:45)
[2018-12-10] MEDS ORDERED: morphine IMMEDIATE RELEASE 15 MG TABLET PO PRN (12:45)
[2018-12-10] MEDS ORDERED: DESFLURANE (SUPRANE) 15 ML INHAL SOLN ONE ×5 (12:55→12:56)
[2018-12-10] MEDS ORDERED: ONDANSETRON 4 MG/2 ML (SDV) Z0FRAN IVP PRN (13:15)
[2018-12-10] MEDS ORDERED: HYDROmorphone 2 MG/ML VIAL (DILAUDID) IV ONE (13:15)
--- NOTE | 2018-12-10 13:20 | Operative Report ---
Operative Report Date of Procedure/Surgery Dec 10, 2018 Surgeon (s) DENISSE MEJIA DO Payroll And Benefits Coordinator (s): NA Post-Operative Diagnosis Obliterated culdesac bilateral endometriomas extensive adhesions omental adhesions boggy uterus > 250 grams hydrosalpinx stress incontinence uterine fibroids post op hematuria Procedure Performed RaTH, bilateral salpingoophorectomy > 250 grams extensive omental adhesiolysis lysis of culdesac adhesions Adhesiolysis for 120 minutes Solyx pubovagnal sling with cytoscopy cystoscopy Description of Procedure Anesthesia Type: General Estimated blood loss (mL): 250 Specimen(s) collected/removed uterus bilateral tubes and ovaries Description of the Procedure After informed consent was obtained, patient was taken into the operating room where general anesthetic was found to be adequate. She was prepped and draped in the usual sterile fashion in the dorsal lithotomy position. A Velazco catheter was placed. A speculum was placed in the vagina. The cervix was visualized and the anterior lip was grasped with a sharp toothed tenaculum. The uterus was sounded and depth was approximately 12 centimeters. I placed the Samia device (12 cm) and a 4.0 cm collar was advanced over the cervix. I inserted the Samia without difficulty, inflating the balloon and securing it around the fornix of the cervix. The collar was then secured with sutures at 12 o'clock. Attention was then turned to the patient's abdomen. A supraumbilical incision was made about 12 mm. A Veress needle was inserted and I could not confirm intraabdominal placement. I then placed right upper quadrant incision and Veress needle and confirmed intraabdominal placement with a drop in pressure and the saline drop test. The opening pressure was 7 mmHg. I then insufflated the abdomen to a maximum of 15 mmHg with warmed CO2 gas. I then placed a 8 mm trocar and then the Da Dandre camera and intraperitoneal placement was confirmed. I then noted that there were extensive omental adhesions to the anterior abdominal wall and umbilicus. These needed to be taken down before I could proceed with the surgery. I placed an additional 8 mm trocar in the left abdomen lateral to the umbilicus approximately 15 cm. I was then able to use the cautery and celine to take down these adhesions. They were very dense but did not include bowel. It took over 120 minutes to take down these adhesions. Once these were taken down and there was good hemostasis, I then did a general scan of the abdomen and determined the procedure could be continued robotically. I then placed the adhesion in the supraumbilical region and placed the robotic arms.. The second robotic port was placed about 12 cm lateral to the right placement. This was an 8 mm trocar. These were placed under direct visualization of the laparoscope. 0.25% Marcaine was injected prior to placement of all trocars. When all placements were confirmed, the patient was placed in steep Trendelenburg allowing adequate visualization and the robot was brought in for docking. The docking was accomplished without difficulty. A survey of the [facility] confirmed the enlarged uterus and adhesions as mentioned. There was an obliterated culdesac, bilateral endometriomas,a and a large, boggy uterus greater than 250 grams (259g). I then took over the command of the robot utilizing the vessel sealer and monopolar celine. I was able to visualize the round ligaments bilaterally and grasped them and cauterized with bipolar cautery and then cut with my celine. At this point, I then did bilateral salpingoophorectomy. There was hydrosalpinx bilaterally and extensive peritubal adhesions.. I elevated the tubes and dissected the mesosalpinx from the ovary and removed the tubes bilaterally. I took down any peritubal adhesions and then clamped the infundibulopelvic ligaments bilaterally with the vessel sealer and then transected. I sealed the vessels and transected bilaterally using the bipolar cautery and then cut with the monopolar celine. I then moved my dissection to the posterior leaves of the broad ligament. I dissected the posterior leaves of the broad ligament off the uterine arteries skeletonizing them bilaterally. The culdesac was completely obliterated, so these adhesion were taken down in a blunt and sharp fashion, avoiding the ureters, etc. There was some old endometriosis and previous scarring. I then took a second clamp with the bipolar cautery and with the celine, transected the vessels away from the lateral aspect to the cervical stroma. I dissected the anterior peritoneum off the lower uterine segment. I continually pushed the bladder back and I took excessively great care and I was eventually able to dissect the vesicouterine peritoneum off the lower uterine segment. I then dissected in a V fashion towards the midline between the uterosacral ligaments. This allowed me to skeletonize the uterine vessels bilaterally. The balloon on the SAMIA was insufflated. This allowed me to see the SAMIA circumferentially. I then performed a colpotomy anteriorly and then amputate with cervix away from the vaginal fornix. I then continued the colpotomy circumferentially. Once this was performed, the infertility medical assistant removed the uterus, tubes and ovaries through the vagina. She then left the uterus in the vagina to maintain the pneumoperitoneum. . I then began closure of the vaginal cuff. The uterus was left in the vagina to maintain pneumoperitoneum. I closed the apices of the vaginal cuff with 2-0 Vicryl V lock sutures with a colposuspension through the uterosacral ligaments. This suspended the apices of the vaginal cuff. I extended this to the midline from both sides and overlapped the V lock sutures in the midline. Excellent closure is noted and hemostasis is achieved. All the needles were removed from the patient's abdomen. Now, the robotic instruments were removed and the robot was docked back to laparoscopy. The pelvis was irrigated. At this point I repeated an exam of the pelvis laparoscopically. The pelvis was irrigated. There was no active bleeding noted. Bilateral ureters were seen the entire time during the surgery and were peristalsing. There was no excessive bleeding noted. Surgiflow was placed over the raw edges of the dissection to prevent bleeding. The trocars were removed under direct visualization. The laparoscopic sites were visualized and found to be hemostatic. The trocar sites were injected with 0.25% Marcaine. I closed the 12 mm fascial incisions with a figure of 8 stitch of 0 Vicryl and then the skin incisions were closed with 4-0 Monocryl in a subcuticular fashion and then with Dermabond. Op sites were placed over the incision sites. The instruments were removed from the vagina and I noted there were no abrasions. Sponge, lap, needle and instrument counts correct times two. Attention was turned to the vagina for treatment of the stress incontinence. A midline incision was made 1 cm from the urethral introitus about 1.5 cm in length. I injected the periurethral region with diluter vasopressin and then dissected bilaterally to the obturator space. I passed the Solyx device on both sides using the described technique. I removed the Velazco catheter and performed cystoscopy. The ureteral orifices were fine with clear effluxes. The sling positioned under the mid urethra. I left the bladder half full, performed a manual Valsalva maneuver that was negative. There was no leakage of fluid from the whole into the surgical field. I reinserted the Velazco catheter draining clear fluid. the patient was awakened and taken to recovery in stable condition. however, as she was moved to the bed, it was suddenly noted that there was bright red urine in the Velazco catheter. the patient was returned to the operative table and repositioned. The Velazco catheter was removed and the cystoscopy was repeated. I examined the entire bladder and did not find any abnormal findings or any evidence of perforation. There was some irritation at the base of the bladder just above the ureter and it is suspected that the bleeding was from this area. Findings of the Procedure Obliterated culdesac bilateral endometriomas extensive adhesions omental adhesions boggy uterus > 250 grams hydrosalpinx stress incontinence uterine fibroids post op hematuria Allergies and Home Medications Allergies Coded Allergies: codeine (Verified Allergy, Intermediate, HALLUCINATIONS, 11/20/18) Home Medications Alprazolam 0.25 Mg Tablet, 0.125 MG PO HS PRN for ANXIETY, (Reported) Cetirizine HCl 10 Mg Tablet, 10 MG PO DAILY, (Reported) Docusate Sodium 100 Mg Capsule, 100 MG PO BID, (Reported) Escitalopram Oxalate 20 Mg Tablet, 20 MG PO HS, (Reported) Estradiol 1 Each Patch.tdwk, 1 PATCH TD WEEK, (Reported) Melatonin 3 Mg Tablet, 3 MG PO HS, (Reported) Pantoprazole Sodium 40 Mg Tablet.dr, 40 MG PO DAILY, (Reported) Progesterone,Micronized 200 Mg Capsule, 200 MG PO DAILY, (Reported) Patient Home Medication List Home Medication List Reviewed: Yes DENISSE MEJIA DO Dec 10, 2018 13:20
[2018-12-10] MEDS ORDERED: ESTRADIOL 0.1 MG PATCH (CLIMARA) ONE (13:27)
[2018-12-10] MEDS ORDERED: ESTRADIOL 0.1 MG PATCH (CLIMARA) TD ONE (13:30)
[2018-12-10] MEDS ORDERED: GABAPENTIN 100 MG (NEURONTIN) CAP PO SCH ×2 (14:00→18:00)
--- NOTE | 2018-12-10 14:00 | NUR ---
MARYCHUY GRIJALVA admitted to room 3306-1 VIA PT BED ACC BY MINDA KRISHNA AFTER A ROBOTIC ASSISTED LAPAROSCOPIC TOTAL HYSTERECTOMY WITH BILATERAL SALPINGO-OOPHORECTOMY, LYSIS OF CULDESAC ADHESIONS, ANTERIOR COLPORRHAPHY WITH SOLYX PUBOVAGINAL SLING AND CYTOSCOPY TODAY BY DR. MEJIA. MARYCHUY GRIJALVA introduced to surroundings, call light, bed controls, phone, TV, temperature control, lights, meal times, smoking policy, visitor policy, side rail policy, bathrooms and showers. Patient Rights given to patient in the handbook.
--- NOTE | 2018-12-10 14:10 | NUR ---
ASSESSMENT COMPLETED. VSS. CALLED AND OTHER FAMILY MEMBER TO THE ROOM. ABD SOFT WITH LAP SITES X4 D/I. ICE PACK TO ABDOMEN. COVARRUBIAS PATENT TO DD WITH REDDISH BROWN URINE DRAINING. INDIGO PURVI REPORTEDLY UTILIZED. NO BLUE TINGE TO URINE AT THIS TIME. CALF SCDS ON BILATERALLY. NO VAGINAL BLEEDING AT THIS TIME. IV O LR PATENT. SITE CLEAR. PLACED ON PUMP WITH NEW TUBING TRA 125 MLS/HR.ORIENTED TO CALL LIGHT OPERATION AND BED CONTROLS.
[2018-12-10] MEDS: LACTATED RINGERS 1,000 ML IV SCH ×2 (14:33→22:20)
[2018-12-10] MEDS: ACETAMINOPHEN 500 MG TAB (TYLENOL) PO SCH (14:45)
--- NOTE | 2018-12-10 15:00 | NUR ---
VSS. CONTINUES TO DO WELL. CONTINUOUS SPO2 MONITORING. OBSERVING URINE OUTPUT CLOSELY.
--- NOTE | 2018-12-10 16:00 | NUR ---
CONTINUOUS SPO2 MONITORING. O2 ON @ 2L/M/NC. DENIES NEED FOR PAIN MEDICATION AT THIS TIME. COVARRUBIAS DRAINING WITH BROWNISH RED URINE. ABD REMAINS SOFT. LAP SITES X4 D/I. SMALL AMOUNT OF PINKISH VAGINAL BLEEDING. DOZING AT INTERVALS.
--- NOTE | 2018-12-10 17:00 | NUR ---
NO CHANGE IN STATUS. ASLEEP AT BEDSIDE. PT ATE A PIECE OF PIZZA. DENIES NEED FOR PAIN MEDS. DOZING OFF AND ON. URINE LESS BLOODY AT THIS TIME.
--- NOTE | 2018-12-10 18:10 | NUR ---
DR. MEJIA CALLED TO CHECK ON PT. UPDATE GIVEN.
[2018-12-10] MEDS ORDERED: ALPRAZolam 0.25 MG (XANAX) TAB PO PRN (18:15)
[2018-12-10] MEDS: GABAPENTIN 300 MG (NEURONTIN) CAP PO SCH (18:19)
--- NOTE | 2018-12-10 18:19 | NUR ---
TORADOL 30 MG IVP PER ORDER. PERICARE PERFORMED WITH PAD CHANGE. PINKISH BLOOD HAD MISSED V-PAD AND WAS UNDER PT. SCANT ACTIVE BLEEDING. O2 OFF.
--- NOTE | 2018-12-10 18:35 | NUR ---
SP02 95% ON ROOM AIR. ASLEEP AT BEDSIDE.
[2018-12-10] MEDS: CIPROFLOXACIN 500 MG (CIPRO) TABLET PO SCH (20:41)
[2018-12-10] MEDS: DOCUSATE SODIUM 100 MG (COLACE) CAP PO SCH (20:41)
[2018-12-10] MEDS ORDERED: PANTOPRAZOLE 40 MG (PROTONIX) TAB PO SCH (21:00)
[2018-12-11 00:07] VITALS: BP 118/69
[2018-12-11] MEDS: GABAPENTIN 300 MG (NEURONTIN) CAP PO SCH ×3 (00:07→12:09)
[2018-12-11] MEDS: ACETAMINOPHEN 500 MG TAB (TYLENOL) PO SCH ×2 (00:07→08:17)
[2018-12-11] MEDS: KETOROLAC 30 MG/ML VIAL IV SCH ×2 (00:08→06:20)
--- NOTE | 2018-12-11 03:25 | NUR ---
Update given to Dr. Salinas when called her on another pt, no new orders rc'd, will proceed w/original am orders.
[2018-12-11 04:40] VITALS: BP 112/67
[2018-12-11] MEDS ORDERED: ENOXAPARIN 40 MG/0.4 ML (LOVENOX) SYR SC SCH (06:00)
[2018-12-11] MEDS: LACTATED RINGERS 1,000 ML IV SCH (06:20)
[2018-12-11] MEDS ORDERED: FLU QUADRIvalent (5+ YOA) 2019-2020 (AFLURIA) 0.5 ML IM ONE (07:15)
[2018-12-11 08:00] VITALS: BP 111/65
[2018-12-11] MEDS ORDERED: fluCOnazole (DIFLUCAN) 100 MG TAB PO NR (08:00)
--- NOTE | 2018-12-11 08:00 | NUR ---
A.M. ASSESSMENT COMPLETED. VSS. DENIES URGE TO VOID. DENIES PAIN.
[2018-12-11] MEDS: CIPROFLOXACIN 500 MG (CIPRO) TABLET PO SCH (08:17)
[2018-12-11] MEDS: DOCUSATE SODIUM 100 MG (COLACE) CAP PO SCH (08:17)
--- NOTE | 2018-12-11 09:14 | NUR ---
DR. MEJIA CALLED TO CHECK ON PT. UPDATE GIVEN.
--- NOTE | 2018-12-11 09:40 | NUR ---
PT HAD GET HER UP TO THE BATHROOM. REPORTS A VOID BUT DIDN'T VOID IN THE HAT. OUT TO AMBULATE IN THE [place] WITH STANDBY ASSIST. MOVES VERY WELL. DENIES PAIN. BACK TO SIT IN THE CHAIR.
--- NOTE | 2018-12-11 10:50 | NUR ---
VOIDED ANOTHER 100 CC URINE. IV FLUIDS D/C'ED. PORT REMAINS ACCESSED UNTIL DR. MEJIA MAKES ROUNDS. SITTING IN THE CHAIR. GETTING UP TO GET DRESSED.
[2018-12-11 12:00] VITALS: BP 121/77
--- NOTE | 2018-12-11 12:03 | Progress Note ---
Progress Note Assessment/Plan Date Seen by Provider: Dec 11, 2018 Time Seen by Provider: 12:00 Events since last exam urine out put cleared up and improved minimal bleeding using minimal pain medication Lungs CTA Abdomen soft and appropriately tender. Assessment/Plan DC home Vitals Last set of Vitals Signs Vital Signs Date Time Temp Pulse Resp B/P (MAP) Pulse Ox O2 Delivery O2 Flow Rate FiO2 12/11/18 08:00 37.2 84 18 111/65 (80) 96 Room Air 12/10/18 18:00 1.00 I&O I&O Intake and Output 12/11/18 00:00 Intake Total 3600 ml Output Total 715 ml Balance 2885 ml Intake Oral 600 ml IV Total 3000 ml Output Urine Total 715 ml Daily Weight Change No No Clinical Quality Measures DVT/VTE Risk/Contraindication: Risk Factor Score Per Nursin RFS Level Per Nursing on Admit: 4+=Very High DENISSE MEJIA DO Dec 11, 2018 12:03
[2018-12-11] MEDS ORDERED: ESTR1PAT73 TOP ×2 (12:09)
[2018-12-11] MEDS ORDERED: GABA-488 PO ×2 (12:09)
[2018-12-11] MEDS ORDERED: PROG200C14 PO ×2 (12:09)
[2018-12-11] MEDS ORDERED: CIPR500T4 PO ×2 (12:09)
[2018-12-11] MEDS ORDERED: DOCU100C37 PO ×2 (12:09)
[2018-12-11] MEDS ORDERED: ACET-78 PO ×2 (12:09)
[2018-12-11] MEDS ORDERED: IBUP-844 PO ×2 (12:09)
--- NOTE | 2018-12-11 12:14 | Discharge Inst-Women's Service ---
Discharge Inst-Women's Serv Depart Medication/Instructions New, Converted or Re-Newed RX: Transmitted to Pharmacy Instructions patch + prometrium for 3 months, then will discontinue prometrium (progesterone) after 3 months and continue the patch Final Diagnosis obliterated culdesac endometriosis bilateral endometriomas extensive adhesions history of colon cancer stress incontinence Problems Reviewed?: Yes Consults/Follow Up Additional Follow Up: Yes (1-2 weeks and then 10-12 weeks) Activity Activity: Activity as Tolerated Driving Instructions: No Driving for 1 Week NO SMOKING: NO SMOKING Nothing Inside Vagina: No Douching, No [place], No Tampons Other Activity expect light bleeding for 10-14 days Diet Discharge Diet: No Restrictions Symptoms to Report to DrCharisse: Swelling Increased, Bleeding Excessive, Constipation(Persistant), Vaginal Bleeding Increase, Cramps in Feet or Legs, Vaginal Discharge Foul For Any Problems or Questions: Contact Your Physician Skin/Wound Care Infection Signs and Symptoms: Increased Redness, Foul Odor of Wound, Increased Drainage, Skin Itchy or Has a Rash, Increased Swelling, Temperature Above 101 F Operative Area Clean and Dry: Keep Incision Clean/Dry (bandages in 2-3 days or if soiled or wet) Stitches/[place]/Dermabond: Dermabond Bathing Instructions: DENISSE Ocampo DO Dec 11, 2018 12:14 POS
[2018-12-11] MEDS ORDERED: FLUC150T PO ×2 (12:16)
--- NOTE | 2018-12-11 12:22 | NUR ---
DR. MEJIA HERE TO SEE PT.
[2018-12-11] MEDS ORDERED: IBUPROFEN 600 MG (MOTRIN) TAB PO SCH (12:45)
--- NOTE | 2018-12-11 13:05 | NUR ---
PORT FLUSHED WITH 20 CC NS. IV ACCESS D/C'ED FROM PORT. SITE CLEAR.
[2018-12-11 13:15] VITALS: BP 121/77
--- NOTE | 2018-12-11 13:15 | NUR ---
DISCHARGE INSTRUCTIONS REVIEWED WITH COPY TO PT. STATES UNDERSTANDING OF ALL INSTRUCTIONS AND NEED TO F/U SCHEDULED AND NEEDED.
--- NOTE | 2018-12-11 14:29 | Anesthesia-General Post-Op ---
General Patient Condition Mental Status/LOC: Same as Preop Cardiovascular: Satisfactory Nausea/Vomiting: Absent Respiratory: Satisfactory Pain: Controlled Complications: Absent Post Op Complications Complications None Follow Up Care/Instructions Patient Instructions None needed. Anesthesia/Patient Condition Patient Condition Patient is doing well, no complaints, stable vital signs, no apparent adverse anesthesia problems. No complications reported per nursing. SOLOMON BARLOW CRNA Dec 11, 2018 14:29 POS
[2018-12-17] MEDS ORDERED: ESTRADIOL PATCH REMOVAL TP SCH (08:59)
[2018-12-17] MEDS ORDERED: ESTRADIOL 0.1 MG PATCH (CLIMARA) TOP SCH (09:00)
--- OUTSIDE RECORDS SUMMARY | 2019-01-02 05:02 | XMS REPORT | Continuity of Care Document ---
Author Organization Unknown POS Address Unknown SP Phone Unavailable SP Allergies Active Description Code Type Severity POS Reaction Onset Reported/Identified POS to Patient Clinical Status POS Yes NKANo Known Allergies NKA Miscellaneous SP Unknown N/A 05/02/2005 SP SP Yes No Known Drug Allergies [id number] Drug SP Unknown N/A 12/17/2015 SP SP Yes codeine [id number] Drug Allergy SP HALLUCINATIONS 11/20/2018 SP SP Medications There is no data. Problems Date Dx Coded Attending Type Code POS Diagnosed By POS 05/26/2015 JANNA NOYOLA, LENY Ogden Ot K62.5 SP HEMORRHAGE OF ANUS AND RECTUM SP 05/26/2015 JANNA NOYOLA, LENY Ogden Ot K64.9 SP UNSPECIFIED HEMORRHOIDS SP 05/26/2015 LENY SALDIVAR MD Ot Z01.818 SP ENCOUNTER FOR OTHER PREPROCEDURAL EXAMIN SP 05/27/2015 LENY SALDIVAR MD Ot K62.5 SP HEMORRHAGE OF ANUS AND RECTUM SP 05/27/2015 LENY SALDIVAR MD Ot K64.9 SP UNSPECIFIED HEMORRHOIDS SP 05/27/2015 LENY SALDIVAR MD Ot Z01.818 SP ENCOUNTER FOR OTHER PREPROCEDURAL EXAMIN SP 05/31/2015 LENY SALDIVAR MD Ot K63.5 SP POLYP OF COLON SP 05/31/2015 LENY SALDIVAR MD Ot K64.9 SP UNSPECIFIED HEMORRHOIDS SP 06/01/2015 LENY SALDIVAR MD Ot K63.5 SP POLYP OF COLON SP 06/01/2015 LENY SALDIVAR MD Ot K64.9 SP UNSPECIFIED HEMORRHOIDS SP 12/17/2015 LENY SALDIVAR MD Ot Z01.818 SP ENCOUNTER FOR OTHER PREPROCEDURAL EXAMIN SP 12/17/2015 JANNA NOYOLA, LENY Ogden Ot Z86.010 SP PERSONAL HISTORY OF COLONIC POLYPS SP 12/17/2015 JANNA NOYOLA, LENY Ogden Ot Z01.818 SP ENCOUNTER FOR OTHER PREPROCEDURAL EXAMIN SP 12/17/2015 JANNA NOYOLA, LENY Ogden Ot Z86.010 SP PERSONAL HISTORY OF COLONIC POLYPS SP 12/20/2015 JANNA NOYOLA, LENY Ogden Ot K64.8 SP OTHER HEMORRHOIDS SP 12/20/2015 JANNA NOYOLA, LENY Ogden Ot Z0 9 SP FOR F/U EXAM AFT TRTMT FOR COND O SP 12/20/2015 JANNA NOYOLA, LENY Ogden Ot Z86.010 SP PERSONAL HISTORY OF COLONIC POLYPS SP 12/21/2015 JANNA NOYOLA, LENY Ogden Ot K64.8 SP OTHER HEMORRHOIDS SP 12/21/2015 JANNA NOYOLA, LENY Ogden Ot Z0 9 SP FOR F/U EXAM AFT TRTMT FOR COND O SP 12/21/2015 JANNA NOYOLA, LENY Ogden Ot Z86.010 SP PERSONAL HISTORY OF COLONIC POLYPS SP 01/21/2018 SILKE DEVI DOIC B Ot Z01.8 18 SP FOR OTHER PREPROCEDURAL EXAMIN SP 01/23/2018 SILKE DEVI DOIC B Ot Z01.8 18 SP FOR OTHER PREPROCEDURAL EXAMIN SP 01/23/2018 SHANDRA AWAD ALBIN B Ot Z01.8 18 SP FOR OTHER PREPROCEDURAL EXAMIN SP 01/25/2018 SILKE DEVI DOIC B Ot 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 01/25/2018 SILKE DEVI DOIC B Ot 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 01/25/2018 SILKE DEVI DOIC B Ot 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 01/25/2018 ALBIN DEVI DO B Ot F41.9 SP DISORDER, UNSPECIFIED SP 01/25/2018 SILKE DEVI DOIC B Ot K64.8 SP HEMORRHOIDS SP 01/25/2018 SILKE DEVI DOIC B Ot Z09 SP FOR F/U EXAM AFT TRTMT FOR COND O SP 01/25/2018 SILKE DEVI DOIC B Ot Z79.8 99 SP SKILLED NURSING (CURRENT) DRUG THERAPY SP 01/25/2018 SILKE DEVI DOIC B Ot Z86.0 10 SP HISTORY OF COLONIC POLYPS SP 01/25/2018 SILKE DEVI DOIC B Ot Z87.8 91 SP HISTORY OF NICOTINE DEPENDENCE SP 01/29/2018 SHANDRA AWAD, ALBIN B Ot Z01.8 18 SP FOR OTHER PREPROCEDURAL EXAMIN SP 01/31/2018 SHANDRA AWAD, ALBIN B Ot 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 01/31/2018 SHANDRA AWAD, ALBIN B Ot 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 01/31/2018 SHANDRA AWAD, ALBIN B Ot 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 01/31/2018 SHANDRA AWAD, ALBIN B Ot F41.9 SP DISORDER, UNSPECIFIED SP 01/31/2018 SHANDRA DO, ALBIN B Ot K64.8 SP HEMORRHOIDS SP 01/31/2018 SHANDRA AWAD, ALBIN B Ot Z09 SP FOR F/U EXAM AFT TRTMT FOR COND O SP 01/31/2018 SHANDRA AWAD, ALBIN B Ot Z79.8 99 SP SKILLED NURSING (CURRENT) DRUG THERAPY SP 01/31/2018 SHANDRA AWAD, ALBIN B Ot Z86.0 10 SP HISTORY OF COLONIC POLYPS SP 01/31/2018 SHANDRA AWAD, ALBIN B Ot Z87.8 91 SP HISTORY OF NICOTINE DEPENDENCE SP 01/31/2018 SHANDRA AWAD, ALBIN B Ot 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 01/31/2018 SHANDRA AWAD, ALBIN B Ot 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 01/31/2018 SHANDRA AWAD, ALBIN B Ot 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 01/31/2018 SHANDRA AWAD, ALBIN B Ot F41.9 SP DISORDER, UNSPECIFIED SP 01/31/2018 SHANDRA AWAD, ALBIN B Ot K64.8 SP HEMORRHOIDS SP 01/31/2018 SHANDRA AWAD, ALBIN B Ot Z09 SP FOR F/U EXAM AFT TRTMT FOR COND O SP 01/31/2018 SHANDRA AWAD, ALBIN B Ot 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 SP 01/31/2018 SHANDRA AWAD, ALBIN B Ot Z86.0 10 SP HISTORY OF COLONIC POLYPS SP 01/31/2018 SHANDRA AWAD, ALBIN B Ot Z87.8 91 SP HISTORY OF NICOTINE DEPENDENCE SP 02/12/2018 SHANDRA AWAD, ALBIN B Ot C18.9 SP NEOPLASM OF COLON, UNSPECIFIED SP 02/12/2018 SHANDRA AWAD, ALBIN B Ot Z01.8 12 SP FOR PREPROCEDURAL LABORATORY E SP 02/12/2018 SHANDRA AWAD, ALBIN B Ot Z11.2 SP FOR SCREENING FOR OTHER BACTER SP 02/13/2018 SHANDRA AWAD, ALBIN B Ot C18.9 SP NEOPLASM OF COLON, UNSPECIFIED SP 02/13/2018 SHANDRA AWAD, ALBIN B Ot Z01.8 12 SP FOR PREPROCEDURAL LABORATORY E SP 02/13/2018 SHANDRA AWAD, ALBIN B Ot Z11.2 SP FOR SCREENING FOR OTHER BACTER SP 02/13/2018 SHANDRA AWAD, ALBIN B Ot C18.9 SP NEOPLASM OF COLON, UNSPECIFIED SP 02/13/2018 SHANDRA AWAD, ALBIN B Ot Z01.8 12 SP FOR PREPROCEDURAL LABORATORY E SP 02/13/2018 SHANDRA AWAD, ALBIN B Ot Z11.2 SP FOR SCREENING FOR OTHER BACTER SP 02/21/2018 SHANDRA AWAD, ALBIN B Ot 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 02/21/2018 CESARTABITHA AWAD ALBIN B Ot 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 02/21/2018 SHANDRA AWAD, ALBIN B Ot E66.9 SP UNSPECIFIED SP 02/21/2018 SHANDRA AWAD, ALBIN B Ot F17.2 10 SP DEPENDENCE, CIGARETTES, UNCOMPL SP 02/21/2018 CESARTABITHA AWAD, ALBIN B Ot F32.9 SP DEPRESSIVE DISORDER, SINGLE EPISOD SP 02/21/2018 SHANDRA AWAD, ALBIN B Ot F41.9 SP DISORDER, UNSPECIFIED SP 02/21/2018 CESARTABITHA DO ALBIN B Ot K21.9 SPESOPHAGEAL REFLUX DISEASE WITHOUT SP 02/21/2018 CESARTABITHA DO ALBIN B Ot K64.8 SP HEMORRHOIDS SP 02/21/2018 CESARTABITHA AWAD ALBIN B Ot Z68.4 1 SP MASS INDEX (BMI) 40.0-44.9, ADULT SP 02/21/2018 CESARTABITHA DO ALBIN B Ot Z80.0 SP HISTORY OF MALIGNANT NEOPLASM OF SP 02/21/2018 CESARTABITHA , ALBIN B Ot Z80.8 SP HISTORY OF MALIGNANT NEOPLASM OF SP 02/21/2018 CESARTABITHA AWAD, ALBIN B Ot Z86.0 10 SP HISTORY OF COLONIC POLYPS SP 02/21/2018 SHANDRA AWAD ALBIN B Ot Z88.5 SP STATUS TO NARCOTIC AGENT STATUS SP 02/21/2018 SHANDRA DO, ALBIN B Ot Z98.8 2 SP IMPLANT STATUS SP 02/21/2018 SHANDRA DO, ALBIN B Ot 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 02/21/2018 SHANDRA DO, ALBIN B Ot E66.9 SP UNSPECIFIED SP 02/21/2018 SHANDRA AWAD, ALBIN B Ot F17.2 10 SP DEPENDENCE, CIGARETTES, UNCOMPL SP 02/21/2018 SHANDRA AWAD, ALBIN B Ot F41.9 SP DISORDER, UNSPECIFIED SP 02/21/2018 SHANDRA DO, ALBIN B Ot K21.9 SPESOPHAGEAL REFLUX DISEASE WITHOUT SP 02/21/2018 SHANDRA AWAD, ALBIN B Ot K64.8 SP HEMORRHOIDS SP 02/21/2018 SHANDRA AWAD, ALBIN B Ot Z68.4 1 SP MASS INDEX (BMI) 40.0-44.9, ADULT SP 02/21/2018 SHANDRA AWAD, ALBIN B Ot Z86.0 10 SP HISTORY OF COLONIC POLYPS SP 02/21/2018 SHANDRA AWAD, ALBIN B Ot Z88.5 SP STATUS TO NARCOTIC AGENT STATUS SP 02/21/2018 SHANDRA AWAD, ALBIN B Ot Z98.8 2 SP IMPLANT STATUS SP 02/27/2018 SHANDRA AWAD, ALBIN B Ot R30.0 SP SP 02/27/2018 SHANDRA AWAD, ALBIN B Ot R30.0 SP SP 03/06/2018 SHANDRA AWAD, ALBIN B Ot R30.0 SP SP 03/25/2018 FRANCISCO JAVIER HENRIQUEZ Ot 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 03/25/2018 FRANCISCO JAVIER HENRIQUEZ Ot N83.201 SP OVARIAN CYST, RIGHT SIDE SP 03/25/2018 FRANCISCO JAVIER HENRIQUEZ N Ot Z98.82 SP IMPLANT STATUS SP 03/25/2018 SHANDRA AWAD, ALBIN B Ot R30.0 SP SP 03/27/2018 SHANDRA AWAD, ALBIN B Ot Z01.8 18 SP FOR OTHER PREPROCEDURAL EXAMIN SP 03/27/2018 FRANCISCO JAVIER HENRIQUEZ Ot 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 03/29/2018 FRANCISCO JAVIER HENRIQUEZ Ot 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 03/29/2018 SHANDRA AWAD, ALBIN B Ot 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 03/29/2018 SILKE DEVI DOIC B Ot I87.2 SP INSUFFICIENCY (CHRONIC) (PERIPHER SP 03/29/2018 SHANDRA AWAD, ALBIN B Ot K21.9 SPESOPHAGEAL REFLUX DISEASE WITHOUT SP 03/29/2018 SHANDRA AWAD, ALBIN B Ot Z87.8 91 SP HISTORY OF NICOTINE DEPENDENCE SP 04/03/2018 MARTINEZFRANCISCO JAVIER N Ot 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 04/03/2018 FRANCISCO JAVIER HENRIQUEZ N Ot N83.201 SP OVARIAN CYST, RIGHT SIDE SP 04/03/2018 MARTINEZFRANCISCO JAVIER N Ot Z98.82 SP IMPLANT STATUS SP 04/17/2018 MARTINEZFRANCISCO JAVIER N Ot 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 04/17/2018 MARTINEZ, FRANCISCO JAVIER N Ot 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 05/15/2018 MARTINEZFRANCISCO JAVIER N Ot 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 06/23/2018 MARTINEZFRANCISCO JAVIER N Ot 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 06/26/2018 MARTINEZFRANCISCO JAVIER N Ot 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 06/26/2018 MARTINEZFRANCISCO JAVIER GARCIA N Ot 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 06/26/2018 FRANCISCO JAVIER HENRIQUEZ N Ot E66.9 SP UNSPECIFIED SP 06/26/2018 MARTINEZFRANCISCO JAVIER GARCIA N Ot I73.9 SP VASCULAR DISEASE, UNSPECIFIED SP 06/26/2018 FRANCISCO JAVIER HENRIQUEZ N Ot Z51.11 SP FOR ANTINEOPLASTIC CHEMOTHERAP SP 06/26/2018 FRANCISCO JAVIER HENRIQUEZ N Ot Z68.41 SP MASS INDEX (BMI) 40.0-44.9, ADULT SP 06/26/2018 TREVOR HENRIQUEZAN N Ot Z79.899 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 09/17/2018 MARTINEZ, BOBHARRY N Ot 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 09/17/2018 MARTINEZ, BOBAN N Ot E66.9 SP UNSPECIFIED SP 09/17/2018 MARTINEZ, BOBAN N Ot I73.9 SP VASCULAR DISEASE, UNSPECIFIED SP 09/17/2018 MARTINEZ, BOBAN N Ot Z68.41 SP MASS INDEX (BMI) 40.0-44.9, ADULT SP 09/17/2018 MARTINEZ, BOBAN N Ot Z79.899 SP SKILLED NURSING (CURRENT) DRUG THERAPY SP 09/24/2018 MARTINEZ, BOBHARRY N Ot 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 09/24/2018 MARTINEZ, BOBHARRY N Ot 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 09/24/2018 MARTINEZ, BOBAN N Ot E66.9 SP UNSPECIFIED SP 09/24/2018 MARTINEZ, BOBHARRY N Ot I73.9 SP VASCULAR DISEASE, UNSPECIFIED SP 09/24/2018 MARTINEZ, BOBAN N Ot Z68.41 SP MASS INDEX (BMI) 40.0-44.9, ADULT SP 09/24/2018 MARTINEZ, FRANCISCO JAVIER N Ot Z79.899 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 THERAPY SP 11/19/2018 DENISSE MEJIA DO Ot Z12.3 1 SP SCREEN MAMMOGRAM FOR MALIGNANT NE SP 11/19/2018 DENISSE MEJIA DO Ot Z95.8 28 SP OF OTHER VASCULAR IMPLANTS AND SP 11/20/2018 MARTINEZ, BOBAN N Ot 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 11/20/2018 MARTINEZ, BOBAN N Ot 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 11/20/2018 MARTINEZ, BOBAN N Ot E66.9 SP UNSPECIFIED SP 11/20/2018 MARTINEZ, BOBAN N Ot I73.9 SP VASCULAR DISEASE, UNSPECIFIED SP 11/20/2018 FRANCISCO JAVIER HENRIQUEZ Ot Z68.41 SP MASS INDEX (BMI) 40.0-44.9, ADULT SP 11/20/2018 FRANCISCO JAVIER HENRIQUEZ Ot Z79.899 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 SP 11/20/2018 MEJIA DO, DENISSE C Ot N81.8 9 SP FEMALE GENITAL PROLAPSE SP 11/20/2018 MEJIA DO, DENISSE C Ot Z01.8 12 SP FOR PREPROCEDURAL LABORATORY E SP 11/23/2018 MEJIA DO, DENISSE C Ot N81.8 9 SP FEMALE GENITAL PROLAPSE SP 11/23/2018 MEJIA DO, DENISSE C Ot Z01.8 12 SP FOR PREPROCEDURAL LABORATORY E SP 11/27/2018 MEJIA DO, DENISSE C Ot Z12.3 1 SP SCREEN MAMMOGRAM FOR MALIGNANT NE SP 11/27/2018 MEJIA DO, DENISSE C Ot Z95.8 28 SP OF OTHER VASCULAR IMPLANTS AND SP 12/11/2018 MEJIA DO, DENISSE C Ot D25.9 SP OF UTERUS, UNSPECIFIED SP 12/11/2018 MEJIA DO DENISSE C Ot K66.0 SP ADHESIONS (POSTPROCEDURAL) (P SP 12/11/2018 MEJIA DO DENISSE C Ot N39.3 SP INCONTINENCE (FEMALE) (MALE) SP 12/11/2018 MEJIA DO DENISSE C Ot N70.1 1 SP SALPINGITIS SP 12/11/2018 MEJIA DO DENISSE C Ot N80.9 SP UNSPECIFIED SP 12/11/2018 MEJIA DO DENISSE C Ot N81.2 SP UTEROVAGINAL PROLAPSE SP 12/30/2018 FRANCISCO JAVIER HENRIQUEZ Ot 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 12/30/2018 FRANCISCO JAVIER HENRIQUEZ Ot 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 12/30/2018 FRANCISCO JAVIER HENRIQUEZ Ot E66.9 SP UNSPECIFIED SP 12/30/2018 FRANCISCO JAVIER HENRIQUEZ Ot I73.9 SP VASCULAR DISEASE, UNSPECIFIED SP 12/30/2018 FRANCISCO JAVIER HENRIQUEZ Ot Z68.41 SP MASS INDEX (BMI) 40.0-44.9, ADULT SP 12/30/2018 FRANCISCO JAVIER HENRIQUEZ Ot Z79.899 SP SKILLED NURSING (CURRENT) DRUG THERAPY SP Procedures Code Description Performed By Per formed On POS [id number] EX CISION OF RECTUM, OPEN SP 02/18/2018 SP [id number] RE SECTION OF SIGMOID COLON, SP APPROAC 02/18/2018 SP Results Test Result Range POS Urine beta human chorionic gonadotropin (hCG) measurement - 12/20/15 10:00 POS Urine beta human chorionic gonadotropin (hCG) measurem ent NEGATIVE POS NEGATIVE SP Serum or plasma choriogonadotropin (preg ramos test) detection - 01/25/18 12:45 POS Serum or plasma choriogonadotropin ( test) de tection NEGATIVE POS NEGATIVE SP Complete blood count (CBC) with automate d white blood cell (WBC) differential - POS 12:20 Blood leukocytes automated count (number/volume) 6.7 10*3/uL POS 4.3-11.0 SP Blood erythrocytes automated count (number/volume) 4.63 10*6/uL SP 4.35-5.85 SP Venous blood hemoglobin measurement (mass/volume) 12.9 g/dL SP16.0 Blood hematocrit (volume fraction) 39 % 35-52 SP Automated erythrocyte mean corpuscular volume 84 [ foz_us] SP99 Automated erythrocyte mean corpuscular h emoglobin (mass per erythrocyte) SP 28 pg 25-34 SP Automated erythrocyte mean corpuscular h emoglobin concentration measurement SP 33 g/dL 32-36 SP Automated erythrocyte distribution width ratio 13. 7 % 10.0- SP Automated blood platelet count (count/volume) 396 10*3/uL SP400 Automated blood platelet mean volume measurement 8.7 [foz_us] SP 7.4-10.4 SP Automated blood neutrophils/100 leukocytes 67 % 42-75 SP Automated blood lymphocytes/100 leukocytes 26 % 12-44 SP Blood monocytes/100 leukocytes 5 % 0-12 SP Automated blood eosinophils/100 leukocytes 2 % 0-10 SP Automated blood basophils/100 leukocytes 0 % 0-10 SP Blood neutrophils automated count (number/volume) 4.4 10*3 SP7.8 Blood lymphocytes automated count (number/volume) 1.8 10*3 SP4.0 Blood monocytes automated count (number/volume) 0. 3 10*3 SP1.0 Automated eosinophil count 0.1 10*3/uL 0 .0-0.3 SP Automated blood basophil count (count/volume) 0.0 10*3/uL SP0.1 Blood type T Indirect antibody screen pa bekah - 02/12/18 12:20 POS ABO+Rh group ON NRG SP Blood group antibody screen NEGATIVE NR G SP Methicillin resistant Staphylococcus aur eus (MRSA) screening culture - 02/12/18 POS Methicillin resistant Staphylococcus aureus (MRSA) scr eening culture POS NRG SP Urine beta human chorionic gonadotropin (hCG) measurement - 02/18/18 06:23 POS Urine beta human chorionic gonadotropin (hCG) measurem ent NEGATIVE POS NEGATIVE SP Blood type T Indirect antibody screen pa [facility] - 02/18/18 06:37 POS ABO+Rh group ON NRG SP Transfusion band number [id number] NRG SP Blood group antibody screen NEGATIVE NR G SP Automated blood complete blood count (he mogram) panel - 02/21/18 03:55 POS Blood leukocytes automated count (number/volume) 7.8 10*3/uL SP 4.3-11.0 SP Blood erythrocytes automated count (number/volume) 3.33 10*6/uL SP 4.35-5.85 SP Venous blood hemoglobin measurement (mass/volume) 9.3 g/dL SP16.0 Blood hematocrit (volume fraction) 29 % 35-52 SP Automated erythrocyte mean corpuscular volume 87 [ foz_us] SP99 Automated erythrocyte mean corpuscular h emoglobin (mass per erythrocyte) SP 28 pg 25-34 SP Automated erythrocyte mean corpuscular h emoglobin concentration measurement SP 32 g/dL 32-36 SP Automated erythrocyte distribution width ratio 13. 8 % 10.0- SP Automated blood platelet count (count/volume) 279 10*3/uL SP400 Automated blood platelet mean volume measurement 8.7 [foz_us] SP 7.4-10.4 SP Comprehensive metabolic panel - 02/21/18 03:55 POS Serum or plasma sodium measurement (moles/volume) 138 mmol/L SP 135-145 SP Serum or plasma potassium measurement (moles/volume) 3.1 mmol/L SP 3.6-5.0 SP Serum or plasma chloride measurement (moles/volume) 107 mmol/L SP 98-107 SP Carbon dioxide 21 mmol/L 21-32 SP Serum or plasma anion gap determination (moles/volume) 10 mmol/L SP 5-14 SP Serum or plasma urea nitrogen measurement (mass/volume ) 8 mg/dL SP 7-18 SP Serum or plasma creatinine measurement (mass/volume) 0.67 mg/dL SP 0.60-1.30 SP Serum or plasma urea nitrogen/creatinine mass ratio 12 NRG SP Serum or plasma creatinine measurement w ith calculation of estimated glomerular SP rate > NRG SP Serum or plasma glucose measurement (mass/volume) 73 mg/dL SP105 Serum or plasma calcium measurement (mass/volume) 8.2 mg/dL SP10.1 Serum or plasma total bilirubin measurement (mass/volu me) 0.3 mg/dL SP 0.1-1.0 SP Serum or plasma alkaline phosphatase moisés surement (enzymatic activity/volume) SP 72 U/L 40-136 SP Serum or plasma aspartate aminotransfera se measurement (enzymatic SP 20 U/L 5-34 SP Serum or plasma alanine aminotransferase measurement (enzymatic activity/volume) SP 14 U/L 0-55 SP Serum or plasma protein measurement (mass/volume) 5.2 g/dL SP8.2 Serum or plasma albumin measurement (mass/volume) 2.9 g/dL SP4.5 CALCIUM CORRECTED 9.1 mg/dL 8.5-10.1 SP Urine beta human chorionic gonadotropin (hCG) measurement - 03/29/18 07:35 POS Urine beta human chorionic gonadotropin (hCG) measurem ent NEGATIVE POS NEGATIVE SP Methicillin resistant Staphylococcus aur eus (MRSA) screening culture - 03/29/18 POS Methicillin resistant Staphylococcus aureus (MRSA) scr eening culture POS NRG SP Complete blood count (CBC) with automate d white blood cell (WBC) differential - POS 11:45 Blood leukocytes automated count (number/volume) 6.9 10*3/uL POS 4.3-11.0 SP Blood erythrocytes automated count (number/volume) 4.77 10*6/uL SP 4.35-5.85 SP Venous blood hemoglobin measurement (mass/volume) 13.0 g/dL SP16.0 Blood hematocrit (volume fraction) 39 % 35-52 SP Automated erythrocyte mean corpuscular volume 82 [ foz_us] SP99 Automated erythrocyte mean corpuscular h emoglobin (mass per erythrocyte) SP 27 pg 25-34 SP Automated erythrocyte mean corpuscular h emoglobin concentration measurement SP 33 g/dL 32-36 SP Automated erythrocyte distribution width ratio 14. 4 % 10.0- SP Automated blood platelet count (count/volume) 368 10*3/uL SP400 Automated blood platelet mean volume measurement 8.9 [foz_us] SP 7.4-10.4 SP Automated blood neutrophils/100 leukocytes 69 % 42-75 SP Automated blood lymphocytes/100 leukocytes 25 % 12-44 SP Blood monocytes/100 leukocytes 4 % 0-12 SP Automated blood eosinophils/100 leukocytes 1 % 0-10 SP Automated blood basophils/100 leukocytes 0 % 0-10 SP Blood neutrophils automated count (number/volume) 4.8 10*3 SP7.8 Blood lymphocytes automated count (number/volume) 1.7 10*3 SP4.0 Blood monocytes automated count (number/volume) 0. 3 10*3 SP1.0 Automated eosinophil count 0.1 10*3/uL 0 .0-0.3 SP Automated blood basophil count (count/volume) 0.0 10*3/uL SP0.1 Blood type T Indirect antibody screen pa bekah - 11/20/18 11:45 POS WRISTBAND NUMBER TNP NRG SP ABO+Rh group ON NRG SP Blood group antibody screen NEGATIVE NR G SP Methicillin resistant Staphylococcus aur eus (MRSA) screening culture - 11/20/18 POS Methicillin resistant Staphylococcus aureus (MRSA) scr eening culture POS NRG SP Complete urinalysis with reflex to cultu re - 11/20/18 11:50 POS Urine color determination YELLOW NRG SP Urine clarity determination CLEAR NR G SP Urine pH measurement by test strip 5 5-9 SP Specific gravity of urine by test strip 1.015 1.016-1.022 SP Urine protein assay by test strip, semi-quantitative NEGATIVE SP NEGATIVE SP Urine glucose detection by automated test strip NE GATIVE SP Erythrocytes detection in urine sediment by light micr oscopy 1+ SP NEGATIVE SP Urine ketones detection by automated test strip NE GATIVE SP Urine nitrite detection by test strip NEGATIVE NEGATIVE SP Urine total bilirubin detection by test strip NEGA TIVE SP Urine urobilinogen measurement by automated test strip (mass/volume) SP NORMAL SP Urine leukocyte esterase detection by dipstick NEG ATIVE SP Automated urine sediment erythrocyte cou nt by microscopy (number/high power SP [HPF] NRG SP Automated urine sediment leukocyte count by microscopy (number/high power field) SP RARE NRG SP Bacteria detection in urine sediment by light microsco py TRACE SP NRG SP Squamous epithelial cells detection in u rine sediment by light microscopy SP 2-5 NRG SP Crystals detection in urine sediment by light microsco py NONE SP NRG SP Casts detection in urine sediment by light microscopy NONE SP Mucus detection in urine sediment by light microscopy SMALL SP NRG SP Complete urinalysis with reflex to culture NO NRG SP Blood type T Indirect antibody screen pa bekah - 12/10/18 07:45 POS WRISTBAND NUMBER [id number] NRG SP ABO+Rh group ON NRG SP Blood group antibody screen NEGATIVE NR G SP Encounters ACCT No. Visit Date/Time Discharge Status POS Pt. Type Provider Facility Loc./Un it POS Complaint POS [id number] 12/18/2018 09:57:00 23:59:59 SP CLS Outpatient FRANCISCO JAVIER HENRIQUEZ [facility] ONC SP [id number] 12/10/2018 07:10:00 13:15:00 SP DIS Inpatient MEJIADENISSE Live DO [facility] WS INCOMPLETE GENITAL PROLAPSE SP [id number] 11/20/2018 11:30:00 14:29:00 SP DIS Outpatient MEJIA DENISSE [facility] PREOP INCOMPLETE GENITAL PROLAPSE SP [id number] 11/15/2018 08:42:00 23:59:59 [facility] RAD SCREENING SP [id number] 10/11/2018 07:51:00 23:59:59 SP CLS Preadmit ANGELES GASTELUM APRN [facility] RAD SCREENING SP [id number] 09/17/2018 11:37:00 00:01:00 SP DIS Outpatient FRANCISCO JAVIER HENRIQUEZ [facility] ONC SP [id number] 06/19/2018 13:10:00 00:01:00 SP DIS Outpatient FRANCISCO JAVIER HENRIQUEZ [facility] ONC SP [id number] 03/29/2018 07:30:00 11:25:00 SP DIS Outpatient ALBIN DEVI DO [facility] SDC COLON CANCER SP [id number] 03/27/2018 05:35:00 11:34:00 SP DIS Outpatient SHANDRA AWAD ALBIN B [facility] PREOP PORT PLACEMENT SP [id number] 03/18/2018 08:57:00 23:59:59 SP CLS Outpatient FRANCISCO JAVIER HENRIQUEZ [facility] 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 SP [id number] 02/26/2018 13:01:00 23:59:59 SP CLS Outpatient CESARCABOT ALBIN B [facility] LAB BURNING WITH URINATION SP [id number] 02/18/2018 05:55:00 17:10:00 SP DIS Inpatient SHANDRA AWAD ALBIN B [facility] 4TH COLON CARCINOMA SP [id number] 02/12/2018 11:52:00 23:59:59 SP CLS Outpatient CESARCABOT ALBIN B [facility] PREOP SIGMOID COLON RESECTION SP [id number] 01/25/2018 12:18:00 14:35:00 SP DIS Outpatient CESARCABOT ALBIN B [facility] ENDO SURVELLIANCE SP [id number] 01/23/2018 14:30:00 14:58:00 SP DIS Outpatient CESARCABOT ALBIN B [facility] PREOP COLONOSCOPY [id number] 12/20/2015 09:37:00 12:40:00 SP DIS [facility] [id number] 12/17/2015 05:32:00 10:04:00 SP DIS Outpatient LENY SALDIVAR MD [facility] PREOP HX POLYPS SP [id number] 05/31/2015 09:27:00 14:17:00 SP DIS Outpatient LENY SALDIVAR MD [facility] RECTAL BLEEDING; HEM ORRHOID SP [id number] 05/26/2015 05:35:00 016 13:37:00 SP DIS Outpatient JANNA NOYOLA, LENY Ogden [facility] PREOP RECTAL BLEEDING; HEM MORHOIDS [id number] 12/30/2018 12:30:00 P EN ALBIN SOL DO [facility] SP ENDO HX COLON CANCER SP
[2019-01-08] MEDS ORDERED: PROG200C10 PO ×2 (14:02)
[2019-01-08] MEDS ORDERED: ESTR1PAT77 TD ×2 (14:02)
[2019-01-08] MEDS ORDERED: DOCU-244 PO ×2 (14:02)
== END 2018-12-11 13:15 | disposition home or self-care (01) | DRG 743 ==
LOC: EDSTATUS 09:00 → WS 12-10 07:10
PROVIDERS: ADMIT Obstetrics & Gynecology; ATTEND Obstetrics & Gynecology
PROC: 0UT74ZZ Resection of Bilateral Fallopian Tubes, Percutaneous Endoscopic Approach (ICD-10-PCS; 2018-12-10)
PROC: 0UNF4ZZ Release Cul-de-sac, Percutaneous Endoscopic Approach (ICD-10-PCS; 2018-12-10)
PROC: 0DNU4ZZ Release Omentum, Percutaneous Endoscopic Approach (ICD-10-PCS; 2018-12-10)
PROC: 0TSD0ZZ Reposition Urethra, Open Approach (ICD-10-PCS; 2018-12-10)
PROC: 0TJB8ZZ Inspection of Bladder, Via Natural or Artificial Opening Endoscopic (ICD-10-PCS; 2018-12-10)
PROC: 0UT94ZZ Resection of Uterus, Percutaneous Endoscopic Approach (ICD-10-PCS; principal; 2018-12-10 08:49)
PROC: 8E0W4CZ Robotic Assisted Procedure of Trunk Region, Percutaneous Endoscopic Approach (ICD-10-PCS; 2018-12-10 08:49)
PROC: 0UT24ZZ Resection of Bilateral Ovaries, Percutaneous Endoscopic Approach (ICD-10-PCS; 2018-12-10 08:49)
DX: N81.2 Incomplete uterovaginal prolapse (principal); N39.3 Stress incontinence (female) (male); N80.9 Endometriosis, unspecified; K66.0 Peritoneal adhesions (postprocedural) (postinfection); N70.11 Chronic salpingitis; D25.9 Leiomyoma of uterus, unspecified; K21.9 Gastro-esophageal reflux disease without esophagitis; F32.9 Major depressive disorder, single episode, unspecified; R31.9 Hematuria, unspecified; Z85.118 Personal history of other malignant neoplasm of bronchus and lung; Z23 Encounter for immunization
CPT/HCPCS: 84703; 86850; 86900; 86901; 88307; 94664

== ENCOUNTER 2018-12-18 09:57 | Outpatient (RCR) | payer OTHER ==
[~2018-12-18 09:57] MED LIST changes: +ACET-78 PO; +CIPR500T4 PO; +DOCU100C37 PO; +ESTR1PAT73 TOP; +FLUC150T PO; +GABA-488 PO; +IBUP-844 PO; +PROG200C14 PO
[2018-12-18 10:15] LABS: BASOPHILS % (AUTO) 0 % (0-10); EOSINOPHILS # (AUTO) 0.3 10^3/uL (0.0-0.3); EOSINOPHILS % (AUTO) 3 % (0-10); HEMATOCRIT 32 % (35-52); HEMOGLOBIN 10.2 G/DL (11.5-16.0); LYMPHOCYTES # (AUTO) 2.2 X 10^3 (1.0-4.0); LYMPHOCYTES % (AUTO) 24 % (12-44); MEAN CORPUSCULAR HEMOGLOBIN 27 PG (25-34); MEAN CORPUSCULAR HGB CONC 32 G/DL (32-36); MEAN CORPUSCULAR VOLUME 84 FL (80-99); MEAN PLATELET VOLUME 8.5 FL (7.4-10.4); MONOCYTES # (AUTO) 0.5 X 10^3 (0.0-1.0); MONOCYTES % (AUTO) 5 % (0-12); NEUTROPHILS # (AUTO) 6.3 X 10^3 (1.8-7.8); NEUTROPHILS % (AUTO) 68 % (42-75); PLATELET COUNT 438 10^3/uL (130-400); RED CELL DISTRIBUTION WIDTH 14.5 % (10.0-14.5); WHITE BLOOD COUNT 9.2 10^3/uL (4.3-11.0)
[2018-12-18 10:38] LABS: ALANINE AMINOTRANSFERASE 72 U/L (0-55); ALKALINE PHOSPHATASE 114 U/L (40-136); BILIRUBIN,TOTAL 0.2 MG/DL (0.1-1.0); BUN/CREATININE RATIO 19; CALCIUM 9.1 MG/DL (8.5-10.1); CARBON DIOXIDE 23 MMOL/L (21-32); CHLORIDE 105 MMOL/L (98-107); GFR ESTIMATED > 60; GLUCOSE 92 MG/DL (70-105); POTASSIUM 4.1 MMOL/L (3.6-5.0); SODIUM 137 MMOL/L (135-145); TOTAL PROTEIN 7.1 GM/DL (6.4-8.2)
[2019-01-08] MEDS ORDERED: DOCU-244 PO (14:02)
[2019-01-08] MEDS ORDERED: PROG200C10 PO (14:02)
[2019-01-08] MEDS ORDERED: ESTR1PAT77 TD (14:02)
== END 2019-03-18 | disposition home or self-care (01) ==
LOC: ONC 09:57
PROVIDERS: ATTEND Internal Medicine Hematology & Oncology
DX: C18.7 Malignant neoplasm of sigmoid colon (principal); C77.2 Secondary and unspecified malignant neoplasm of intra-abdominal lymph nodes; I73.9 Peripheral vascular disease, unspecified; E66.9 Obesity, unspecified; Z68.41 Body mass index [BMI] 40.0-44.9, adult; Z79.899 Other long term (current) drug therapy
CPT/HCPCS: 36591; 80053; 82378; 85025

== ENCOUNTER 2019-01-08 05:46 | Outpatient (CLI) | payer OTHER ==
[~2019-01-08] VITALS: Ht 165.1 cm; Wt 117.0 kg
[~2019-01-08 05:46] MED LIST changes: +ACET-77 PO; -ACET-78 PO; +MELA3TAB PO; -MELA3TAB65 PO
[2019-01-08] MEDS ORDERED: DOCU-244 PO (14:02)
[2019-01-08] MEDS ORDERED: PROG200C10 PO (14:02)
[2019-01-08] MEDS ORDERED: ESTR1PAT77 TD (14:02)
== END 2019-01-08 14:06 | disposition home or self-care (01) ==
LOC: PREOP 05:46
PROVIDERS: ATTEND Surgery
DX: Z01.818 Encounter for other preprocedural examination (principal)

== ENCOUNTER 2019-01-13 09:47 | Day surgery (SDC) | payer OTHER ==
[~2019-01-13] VITALS: Ht 165.1 cm; Wt 117.0 kg
[~2019-01-13 09:47] MED LIST changes: -ACET-77 PO; +ACET-78 PO; +DOCU-244 PO; +ESTR1PAT77 TD; -MELA3TAB PO; +MELA3TAB65 PO; +PROG200C10 PO
[2019-01-13] MEDS ORDERED: LACTATED RINGERS 1,000 ML IV ONE (09:54)
[2019-01-13] MEDS ORDERED: LACTATED RINGERS 1,000 ML IV STA (10:14)
[2019-01-13 10:38] VITALS: BP 105/73
--- NOTE | 2019-01-13 11:14 | Progress Note-Pre Operative ---
Pre-Operative Progress Note H&P Reviewed The H&P was reviewed, patient examined and no changes noted. Time Seen by Provider: 11:11 Date H&P Reviewed: Jan 13, 2019 Time H&P Reviewed: 11:12 Pre-Operative Diagnosis: Hx of colon CA, surveillance colonoscopy ALBIN DEVI DO Jan 13, 2019 11:14 POS
[2019-01-13] MEDS ORDERED: MIDAZOLAM 5 MG/5 ML (VERSED) VIAL ONE (12:07)
[2019-01-13] MEDS ORDERED: PROPOFOL INJECTION 50 ML IV ONE (12:07)
[2019-01-13 12:30] VITALS: BP 103/56
--- NOTE | 2019-01-13 12:34 | Progress Note-Post Operative ---
Post-Operative Progess Note Surgeon (s)/Edi Coordinator (s) Surgeon ALBIN DEVI DO Edi Coordinator: none Pre-Operative Diagnosis Hx of colon CA, surveillance colonoscopy Post-Operative Diagnosis Polyp Int hemorrhoids Procedure & Operative Findings Date of Procedure 01/13/19 Procedure Performed/Findings Colon with snare Anesthesia Type IV sedation by FILLER AND TRIMMER Estimated Blood Loss Estimated blood loss (mL): scant Specimens/Packing Specimens Removed Desc colon polyp ALBIN DEVI DO Jan 13, 2019 12:34 POS
[2019-01-13 12:35] VITALS: BP 104/67
--- NOTE | 2019-01-13 12:37 | Endoscopy Discharge Instruct ---
Endo Procedure/Findings Findings 1.: Polyp 2.: Internal Hemorrhoids Discharge Instructions - Activity: You might feel a little sleepy until tomorrow. This is due to the medicine you received to relax you. Until tomorrow, you should: NOT drive a car, operate machinery or power tools. NOT drink any alcoholic beverages. NOT make any important decisions or sign importortant papers. Do not return to work until tomorrow, unless otherwise instructed. Resume previous activities tomorrow. Diet: Start by taking liquids. If you tolerate liquids, advance to solid food. make an appt for 2 weeks 1.: Colonoscopy in 1 year Notify Physician - If you experience excessive bleeding, unusual abdominal pain, fever, or chest pain, contact your doctor immediately. ALBIN DEVI DO Jan 13, 2019 12:37 POS
[2019-01-13 13:00] VITALS: BP 122/80
[2019-01-13 13:15] VITALS: BP 122/80
--- NOTE | 2019-01-13 14:14 | Anesthesia-General Post-Op ---
MAC Patient Condition Mental Status/LOC: Same as Preop Cardiovascular: Satisfactory Nausea/Vomiting: Absent Respiratory: Satisfactory Pain: Controlled Complications: Absent Post Op Complications Complications None Follow Up Care/Instructions Patient Instructions None needed. Anesthesiology Discharge Order Discharge Order Patient is doing well, no complaints, stable vital signs, no apparent adverse anesthesia problems. No complications reported per nursing. LUCIA MILLER CRNA Jan 13, 2019 14:14 POS
--- NOTE | 2019-01-14 03:55 | OPERATIVE REPORT ---
DATE OF SERVICE: 01/13/2019 PREOPERATIVE DIAGNOSES: History of colon cancer, need for surveillance colonoscopy. POSTOPERATIVE DIAGNOSES: Colon polyp, internal hemorrhoids. PROCEDURE PERFORMED: Colonoscopy with snare polypectomy. SURGEON: William Landry DO ANESTHESIA: IV sedation by HUMAN RESOURCE OFFICER. SPECIMEN: Descending colon polyp. BLOOD LOSS: Scant. FLUIDS: Per anesthesia. POSTOPERATIVE CONDITION: Stable. INDICATION FOR PROCEDURE: The patient is a 48-year-old female who unfortunately had some rectal cancer. History of resection and will need a one-year surveillance colonoscopy. FINDINGS: The patient had one small polyp in the descending colon otherwise everything else looked good, anastomosis looked good. PROCEDURE NOTE: After informed consent was obtained, the patient was brought to the endoscopy suite, placed in the bed left lateral decubitus position. She was administered IV sedation by the HUMAN RESOURCE OFFICER who then monitored her vitals the entire time, heart rate, blood pressure and pulse ox and the scope was inserted. I could see the anastomosis. Pushed all the way to the cecum, took a picture of appendiceal orifice and then slowly withdrew the scope insufflating to look circumferentially at the ritchie looking the cecum, up the ascending colon to the hepatic flexure, then down the transverse colon, the splenic flexure, into the descending colon. In the descending colon, saw small polyp, took a picture of this and then the snare polypectomy and then pulled down through the anastomosis, took a picture of the anastomosis and then into the rectum, retroflexed the rectal vault, saw some minimal internal hemorrhoids, took a picture of this and then removed the scope. The patient tolerated the procedure. She was recovered in endoscopy suite. Job ID: [id number] DocumentID: [id number] Dictated Date: 01/13/2019 18:35:48 Electric Meter Installer Helper Date: 01/14/2019 03:54:48 Dictated By: WILLIAM LANDRY DO
--- OUTSIDE RECORDS SUMMARY | 2019-02-07 13:45 | XMS REPORT | Continuity of Care Document ---
Author Organization Unknown Address Unknown Phone Unavailable Allergies Active Description Code Type Severity Reaction Onset Reported/Identified Relationship to Patient Clinical Status Yes NKANo Known Allergies NKA Miscellaneous Allergy Unknown N/A 05/02/2005 Yes No Known Drug Allergies [id number] Drug Allergy Unknown N/A 12/17/2015 Yes codeine [id number] Drug Allergy Moderate HALLUCINATIONS 11/20/2018 Medications There is no data. Problems Date Dx Coded Attending Type Code Diagnosis Diagnosed By 05/26/2015 JANNA NOYOLA, LENY Ogden Ot K62.5 HEMORRHAGE OF ANUS AND RECTUM [...] Z86.010 PERSONAL HISTORY OF COLONIC POLYPS 12/20/2015 LENY SALDIVAR MD M Ot K64.8 OTHER HEMORRHOIDS 12/20/2015 JANNA NOYOLA, LENY Ogden Ot Z0 9 ENCNTR FOR F/U EXAM AFT TRTMT FOR COND O 12/20/2015 JANNA NOYOLA, LENY Ogden Ot Z86.010 PERSONAL HISTORY OF COLONIC POLYPS 12/21/2015 JANNA NOYOLA, LENY Ogden Ot K64.8 OTHER HEMORRHOIDS 12/21/2015 JANNA NOYOLA, LENY Ogden Ot Z0 9 ENCNTR FOR F/U EXAM AFT TRTMT FOR COND O 12/21/2015 JANNA NOYOLA, LENY Ogden Ot Z86.010 PERSONAL HISTORY OF COLONIC POLYPS 01/21/2018 SILKE DEVI DOIC B Ot Z01.8 18 ENCOUNTER FOR OTHER PREPROCEDURAL EXAMIN 01/23/2018 SILKE DEVI DOIC B Ot Z01.8 18 ENCOUNTER FOR OTHER PREPROCEDURAL EXAMIN 01/23/2018 SILKE DEVI DOIC B Ot Z01.8 18 ENCOUNTER FOR OTHER PREPROCEDURAL EXAMIN 01/25/2018 ALBIN DEVI DO B Ot 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 01/25/2018 SILKE DEVI DOIC B Ot D12.2 BENIGN NEOPLASM OF ASCENDING COLON 01/25/2018 ALBIN DEVI DO B Ot D12.5 BENIGN NEOPLASM OF SIGMOID COLON 01/25/2018 ALBIN DEVI DO B Ot F41.9 ANXIETY DISORDER, UNSPECIFIED 01/25/2018 SILKE DEVI DOIC B Ot K64.8 OTHER HEMORRHOIDS 01/25/2018 ALBIN DEVI DO Ot Z09 ENCNTR FOR F/U EXAM AFT TRTMT FOR COND O 01/25/2018 SILKE DEVI DOIC B Ot 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 01/25/2018 SILKE DEVI DOIC B Ot Z86.0 10 PERSONAL HISTORY OF COLONIC POLYPS 01/25/2018 ALBIN DEVI DO B Ot Z87.8 91 PERSONAL HISTORY OF NICOTINE DEPENDENCE 01/29/2018 SILKE DEVI DOIC B Ot Z01.8 18 ENCOUNTER FOR OTHER PREPROCEDURAL EXAMIN 01/31/2018 SILKE DEVI DOIC B Ot 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 01/31/2018 SILKE DEVI DOIC B Ot D12.2 BENIGN NEOPLASM OF ASCENDING COLON 01/31/2018 SHANDRA AWAD ALBIN B Ot D12.5 BENIGN NEOPLASM OF SIGMOID COLON 01/31/2018 SILKE DEVI DOIC B Ot F41.9 ANXIETY DISORDER, UNSPECIFIED 01/31/2018 SILKE DEVI DOIC B Ot K64.8 OTHER HEMORRHOIDS 01/31/2018 SILKE DEVI DOIC B Ot Z09 ENCNTR FOR F/U EXAM AFT TRTMT FOR COND O 01/31/2018 SILKE DEVI DOIC B Ot Z79.8 99 OTHER SENIOR CARE (CURRENT) DRUG THERAPY 01/31/2018 SILKE DEVI DOIC B Ot Z86.0 10 PERSONAL HISTORY OF COLONIC POLYPS 01/31/2018 SHANDRA AWAD ALBIN B Ot Z87.8 91 PERSONAL HISTORY OF NICOTINE DEPENDENCE 01/31/2018 SHANDRA AWAD ALBIN B Ot 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 01/31/2018 SILKE DEVI DOIC B Ot D12.2 BENIGN NEOPLASM OF ASCENDING COLON 01/31/2018 SILKE DEVI DOIC B Ot D12.5 BENIGN NEOPLASM OF SIGMOID COLON 01/31/2018 SILKE DEVI DOIC B Ot F41.9 ANXIETY DISORDER, UNSPECIFIED 01/31/2018 SILKE DEVI DOIC B Ot K64.8 OTHER HEMORRHOIDS 01/31/2018 SILKE DEVI DOIC B Ot Z09 ENCNTR FOR F/U EXAM AFT TRTMT FOR COND O 01/31/2018 SILKE DEVI DOIC B Ot 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 01/31/2018 SILKE DEVI DOIC B Ot Z86.0 10 PERSONAL HISTORY OF COLONIC POLYPS 01/31/2018 SHANDRA AWAD ALBIN B Ot Z87.8 91 PERSONAL HISTORY OF NICOTINE DEPENDENCE 02/12/2018 SHANDRA AWAD ALBIN B Ot C18.9 MALIGNANT NEOPLASM OF COLON, UNSPECIFIED 02/12/2018 SHANDRA AWADSILKEIC B Ot Z01.8 12 ENCOUNTER FOR PREPROCEDURAL LABORATORY E 02/12/2018 CESARTABITHA AWADSILKEIC B Ot Z11.2 ENCOUNTER FOR SCREENING FOR OTHER BACTER 02/13/2018 SHANDRA AWADSILKEIC B Ot C18.9 MALIGNANT NEOPLASM OF COLON, UNSPECIFIED 02/13/2018 CESARTABITHA AWADSILKEIC B Ot Z01.8 12 ENCOUNTER FOR PREPROCEDURAL LABORATORY E 02/13/2018 CESARTABITHA ALBIN AWAD B Ot Z11.2 ENCOUNTER FOR SCREENING FOR OTHER BACTER 02/13/2018 CESARTABITHA ALBIN AWAD Ot C18.9 MALIGNANT NEOPLASM OF COLON, UNSPECIFIED 02/13/2018 ALBIN DEVI DO B Ot Z01.8 12 ENCOUNTER FOR PREPROCEDURAL LABORATORY E 02/13/2018 CESARTABITHA ALBIN AWAD B Ot Z11.2 ENCOUNTER FOR SCREENING FOR OTHER BACTER 02/21/2018 ALBIN DEVI DO B Ot C18.7 MALIGNANT NEOPLASM OF SIGMOID COLON 02/21/2018 SILKE DEVI DOIC B Ot C77.2 SECONDARY AND UNSP MALIGNANT NEOPLASM OF 02/21/2018 ALBIN DEVI DO B Ot E66.9 OBESITY, UNSPECIFIED 02/21/2018 ALBIN DEVI DO B Ot F17.2 10 NICOTINE DEPENDENCE, CIGARETTES, UNCOMPL 02/21/2018 ALBIN DEVI DO B Ot F32.9 MAJOR DEPRESSIVE DISORDER, SINGLE EPISOD 02/21/2018 ALBIN DEVI DO Ot F41.9 ANXIETY DISORDER, UNSPECIFIED 02/21/2018 SILKE DEVI DOIC B Ot K21.9 GASTRO-ESOPHAGEAL REFLUX DISEASE WITHOUT 02/21/2018 SILKE DEVI DOIC B Ot K64.8 OTHER HEMORRHOIDS 02/21/2018 ALBIN DEVI DO Ot Z68.4 1 BODY MASS INDEX (BMI) 40.0-44.9, ADULT 02/21/2018 ALBIN DEVI DO B Ot Z80.0 FAMILY HISTORY OF MALIGNANT NEOPLASM OF 02/21/2018 ALBIN DEVI DO Ot Z80.8 FAMILY HISTORY OF MALIGNANT NEOPLASM OF 02/21/2018 ALBIN DEVI DO B Ot Z86.0 10 PERSONAL HISTORY OF COLONIC POLYPS 02/21/2018 ALBIN DEVI DO B Ot Z88.5 ALLERGY STATUS TO NARCOTIC AGENT STATUS 02/21/2018 ALBNI DEVI DO B Ot Z98.8 2 BREAST IMPLANT STATUS 02/21/2018 ALBIN DEVI DO B Ot C18.7 MALIGNANT NEOPLASM OF SIGMOID COLON 02/21/2018 ALBIN DEVI DO B Ot E66.9 OBESITY, UNSPECIFIED 02/21/2018 ALBIN DEVI DO B Ot F17.2 10 NICOTINE DEPENDENCE, CIGARETTES, UNCOMPL 02/21/2018 DELMAN DO, ALBIN B Ot F41.9 ANXIETY DISORDER, UNSPECIFIED 02/21/2018 DELMAN DO, ALBIN B Ot K21.9 GASTRO-ESOPHAGEAL REFLUX DISEASE WITHOUT 02/21/2018 DELMAN DO, ALBIN B Ot K64.8 OTHER HEMORRHOIDS 02/21/2018 DELMAN DO, ALBIN B Ot Z68.4 1 BODY MASS INDEX (BMI) 40.0-44.9, ADULT 02/21/2018 DELMAN DO, ALBIN B Ot Z86.0 10 PERSONAL HISTORY OF COLONIC POLYPS 02/21/2018 DELTABITHA DO, ALBIN B Ot Z88.5 ALLERGY STATUS TO NARCOTIC AGENT STATUS 02/21/2018 DELTABITHA DO, ALBIN B Ot Z98.8 2 BREAST IMPLANT STATUS 02/27/2018 DELMAN DO, ALBIN B Ot R30.0 DYSURIA 02/27/2018 DELMAN DO, ALBIN B Ot R30.0 DYSURIA 03/06/2018 DELTABITHA DO, ALBIN B Ot R30.0 DYSURIA 03/25/2018 FRANCISCO JAVIER HENRIQUEZ Ot C18.7 MALIGNANT NEOPLASM OF SIGMOID COLON 03/25/2018 FRANCISCO JAVIER HENRIQUEZ Ot N83.201 UNSPECIFIED OVARIAN CYST, RIGHT SIDE 03/25/2018 FRANCISCO JAVIER HENRIQUEZ N Ot Z98.82 BREAST IMPLANT STATUS 03/25/2018 DELTABITHA DO, ALBIN B Ot R30.0 DYSURIA 03/27/2018 DELTABITHA DO, ALBIN B Ot Z01.8 18 ENCOUNTER FOR OTHER PREPROCEDURAL EXAMIN 03/27/2018 FRANCISCO JAVIER HENRIQUEZ Ot C18.7 MALIGNANT NEOPLASM OF SIGMOID COLON 03/29/2018 FRANCISCO JAVIER HENRIQUEZ N Ot C18.7 MALIGNANT NEOPLASM OF SIGMOID COLON 03/29/2018 DELMAN DO, ALBIN B Ot C18.7 MALIGNANT NEOPLASM OF SIGMOID COLON 03/29/2018 DELMAN DO, ALBIN B Ot I87.2 VENOUS INSUFFICIENCY (CHRONIC) (PERIPHER 03/29/2018 DELMAN DO, ALBIN B Ot K21.9 GASTRO-ESOPHAGEAL REFLUX DISEASE WITHOUT 03/29/2018 DELMAN DO, ALBIN B Ot Z87.8 91 PERSONAL HISTORY OF NICOTINE DEPENDENCE 04/03/2018 FRANCISCO JAVIER HENRIQUEZ Ot C18.7 MALIGNANT NEOPLASM OF SIGMOID COLON 04/03/2018 FRANCISCO JAVIER HENRIQUEZ Ot N83.201 UNSPECIFIED OVARIAN CYST, RIGHT SIDE 04/03/2018 FRANCISCO JAVIER HENRIQUEZ Emi Ot Z98.82 BREAST IMPLANT STATUS 04/17/2018 FRANCISCO JAVIER HENRIQUEZ N Ot C18.7 MALIGNANT NEOPLASM OF SIGMOID COLON 04/17/2018 FRANCISCO JAVIER HENRIQUEZ N Ot C18.7 MALIGNANT NEOPLASM OF SIGMOID COLON 05/15/2018 FRANCISCO JAVIER HENRIQUEZ N Ot C18.7 MALIGNANT NEOPLASM OF SIGMOID COLON 06/23/2018 FRANCISCO JAVIER HENRIQUEZ N Ot C18.7 MALIGNANT NEOPLASM OF SIGMOID COLON 06/26/2018 MARTINEZ TREVORHARRY N Ot C18.7 MALIGNANT NEOPLASM OF SIGMOID COLON 06/26/2018 MARTINEZ FRANCISCO JAVIER N Ot C77.2 SECONDARY AND UNSP MALIGNANT NEOPLASM OF 06/26/2018 MARTINEZ FRANCISCO JAVIER N Ot E66.9 OBESITY, UNSPECIFIED 06/26/2018 MARTINEZFRANCISCO JAVIER N Ot I73.9 PERIPHERAL VASCULAR DISEASE, UNSPECIFIED 06/26/2018 MARTINEZ TREVORHARRY N Ot Z51.11 ENCOUNTER FOR ANTINEOPLASTIC CHEMOTHERAP 06/26/2018 MARTINEZ FRANCISCO JAVIER N Ot Z68.41 BODY MASS INDEX (BMI) 40.0-44.9, ADULT 06/26/2018 FRANCISCO JAVIER HENRIQUEZ N Ot Z79.899 OTHER SENIOR CARE (CURRENT) DRUG THERAPY 06/28/2018 FRANCISCO JAVIER HENRIQUEZ N Ot C18.7 MALIGNANT NEOPLASM OF SIGMOID COLON 07/17/2018 MARTINEZ TREVORHARRY N Ot C18.7 MALIGNANT NEOPLASM OF SIGMOID COLON 07/17/2018 MARTINEZ TREVORHARRY N Ot C77.2 SECONDARY AND UNSP MALIGNANT NEOPLASM OF 07/17/2018 MARTINEZ FRANCISCO JAVIER N Ot E66.9 OBESITY, UNSPECIFIED 07/17/2018 MARTINEZFRANCISCO JAVIER N Ot I73.9 PERIPHERAL VASCULAR DISEASE, UNSPECIFIED 07/17/2018 MARTINEZ TREVORHARRY N Ot Z68.41 BODY MASS INDEX (BMI) 40.0-44.9, ADULT 07/17/2018 MARTINEZ TREVORHARRY N Ot 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 09/17/2018 MARTINEZ TREVORHARRY N Ot C18.7 MALIGNANT NEOPLASM OF SIGMOID COLON 09/17/2018 MARTINEZ FRANCISCO JAVIER N Ot C77.2 SECONDARY AND UNSP MALIGNANT NEOPLASM OF 09/17/2018 MARTINEZ FRANCISCO JAVIER N Ot E66.9 OBESITY, UNSPECIFIED 09/17/2018 MARTINEZFRANCISCO JAVIER N Ot I73.9 PERIPHERAL VASCULAR DISEASE, UNSPECIFIED 09/17/2018 MARTINEZFRANCISCO JAVIER GARCIA N Ot Z68.41 BODY MASS INDEX (BMI) 40.0-44.9, ADULT 09/17/2018 FRANCISCO JAVIER HENRIQUEZ N Ot 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 09/24/2018 FRANCISCO JAVIER HENRIQUEZ N Ot C18.7 MALIGNANT NEOPLASM OF SIGMOID COLON 09/24/2018 FRANCISCO JAVIER HENRIQUEZ N Ot C77.2 SECONDARY AND UNSP MALIGNANT NEOPLASM OF 09/24/2018 FRANCISCO JAVIER HENRIQUEZ N Ot E66.9 OBESITY, UNSPECIFIED 09/24/2018 MARTINEZFRANCISCO JAVIER GARCIA N Ot I73.9 PERIPHERAL VASCULAR DISEASE, UNSPECIFIED 09/24/2018 MARTINEZFRANCISCO JAVIER GARCIA N Ot Z68.41 BODY MASS INDEX (BMI) 40.0-44.9, ADULT 09/24/2018 FRANCISCO JAVIER HENRIQUEZ N Ot 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 11/19/2018 JACKIE DO DENISSE C Ot Z12.3 1 ENCNTR SCREEN MAMMOGRAM FOR MALIGNANT NE 11/19/2018 JACKIE DO DENISSE C Ot Z95.8 28 PRESENCE OF OTHER VASCULAR IMPLANTS AND 11/20/2018 FRANCISCO JAVIER HENRIQUEZ N Ot C18.7 MALIGNANT NEOPLASM OF SIGMOID COLON 11/20/2018 MARTINEZFRANCISCO JAVIER GARCIA N Ot C77.2 SECONDARY AND UNSP MALIGNANT NEOPLASM OF 11/20/2018 FRANCISCO JAVIER HENRIQUEZ N Ot E66.9 OBESITY, UNSPECIFIED 11/20/2018 MARTINEZFRANCISCO JAVIER GARCIA N Ot I73.9 PERIPHERAL VASCULAR DISEASE, UNSPECIFIED 11/20/2018 MARTINEZFRANCISCO JAVIER GARCIA N Ot Z68.41 BODY MASS INDEX (BMI) 40.0-44.9, ADULT 11/20/2018 FRANCISCO JAVIER HENRIQUEZ N Ot Z79.899 OTHER SENIOR CARE (CURRENT) DRUG THERAPY 11/20/2018 MEJIA DO DENISSE C Ot N81.8 9 OTHER FEMALE GENITAL PROLAPSE 11/20/2018 JACKIE DO DENISSE C Ot Z01.8 12 ENCOUNTER FOR PREPROCEDURAL LABORATORY E 11/23/2018 JACKIE AWAD DENISSE C Ot N81.8 9 OTHER FEMALE GENITAL PROLAPSE 11/23/2018 JACKIE AWAD DENISSE C Ot Z01.8 12 ENCOUNTER FOR PREPROCEDURAL LABORATORY E 11/27/2018 MEJIA DO, DEINSSE C Ot Z12.3 1 ENCNTR SCREEN MAMMOGRAM FOR MALIGNANT NE 11/27/2018 JACKIE AWAD DENISSE C Ot Z95.8 28 PRESENCE OF OTHER VASCULAR IMPLANTS AND 12/11/2018 JACKIE AWAD DENISSE C Ot D25.9 LEIOMYOMA OF UTERUS, UNSPECIFIED 12/11/2018 JACKIE AWAD DENISSE C Ot F32.9 MAJOR DEPRESSIVE DISORDER, SINGLE EPISOD 12/11/2018 DENISSE MEJIA DO C Ot K21.9 GASTRO-ESOPHAGEAL REFLUX DISEASE WITHOUT 12/11/2018 CLEMENCIA MEJIA DOA C Ot K66.0 PERITONEAL ADHESIONS (POSTPROCEDURAL) (P 12/11/2018 JACKIE AWAD DENISSE C Ot N39.3 STRESS INCONTINENCE (FEMALE) (MALE) 12/11/2018 DENISSE MEJIA DO C Ot N70.1 1 CHRONIC SALPINGITIS 12/11/2018 CLEMENICA MEJIA DOA C Ot N80.9 ENDOMETRIOSIS, UNSPECIFIED 12/11/2018 DENISSE MEJIA DO C Ot N81.2 INCOMPLETE UTEROVAGINAL PROLAPSE 12/11/2018 DENISSE MEJIA DO C Ot R31.9 HEMATURIA, UNSPECIFIED 12/11/2018 JACKIE AWAD DENISSE C Ot Z23 ENCOUNTER FOR IMMUNIZATION 12/11/2018 CLEMENCIA MEJIA DOA C Ot Z85.1 18 PERSONAL HISTORY OF MALIGNANT NEOPLASM O 12/30/2018 FRANCISCO JAVIER HENRIQUEZ Ot C18.7 MALIGNANT NEOPLASM OF SIGMOID COLON 12/30/2018 FRANCISCO JAVIER HENRIQUEZ Ot C77.2 SECONDARY AND UNSP MALIGNANT NEOPLASM OF 12/30/2018 FRANCISCO JAVIER HENRIQUEZ Ot E66.9 OBESITY, UNSPECIFIED 12/30/2018 FRANCISCO JAVIER HENRIQUEZ Ot I73.9 PERIPHERAL VASCULAR DISEASE, UNSPECIFIED 12/30/2018 FRANCISCO JAVIER HENRIQUEZ Ot Z68.41 BODY MASS INDEX (BMI) 40.0-44.9, ADULT 12/30/2018 FRANCISCO JAVIER HENRIQUEZ Ot 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 01/08/2019 SHANDRA AWAD ALBIN B Ot Z01.8 18 ENCOUNTER FOR OTHER PREPROCEDURAL EXAMIN 01/10/2019 SHANDRA AWAD ALBIN B Ot Z01.8 18 ENCOUNTER FOR OTHER PREPROCEDURAL EXAMIN 01/13/2019 SILKE DEVI DOIC B Ot E66.0 1 MORBID (SEVERE) OBESITY DUE TO EXCESS CA 01/13/2019 ALBIN DEVI DO Ot F32.9 MAJOR DEPRESSIVE DISORDER, SINGLE EPISOD 01/13/2019 ALBIN DEVI DO Ot F41.9 ANXIETY DISORDER, UNSPECIFIED 01/13/2019 ALBIN DEVI DO Ot K21.9 GASTRO-ESOPHAGEAL REFLUX DISEASE WITHOUT 01/13/2019 ALBIN DEVI DO Ot K63.5 POLYP OF COLON 01/13/2019 ALBIN DEVI DO Ot K64.8 OTHER HEMORRHOIDS 01/13/2019 ALBIN DEVI DO Ot Z12.1 1 ENCOUNTER FOR SCREENING FOR MALIGNANT NE 01/13/2019 ALBIN DEVI DO Ot Z68.4 1 BODY MASS INDEX (BMI) 40.0-44.9, ADULT 01/13/2019 ALBIN DEVI DO B Ot Z79.8 99 OTHER SENIOR CARE (CURRENT) DRUG THERAPY 01/13/2019 ALBIN DEVI DO Ot Z80.9 FAMILY HISTORY OF MALIGNANT NEOPLASM, UN 01/13/2019 ALBIN DEVI DO Ot Z82.4 9 FAMILY HX OF ISCHEM HEART DIS AND OTH DI 01/13/2019 ALBIN DEVI DO B Ot Z83.3 FAMILY HISTORY OF DIABETES MELLITUS 01/13/2019 ALBIN DEVI DO Ot Z85.0 38 PERSONAL HISTORY OF MALIGNANT NEOPLASM O 01/13/2019 ALBIN DEVI DO B Ot Z87.8 91 PERSONAL HISTORY OF NICOTINE DEPENDENCE 01/13/2019 ALBIN DEVI DO Ot Z88.5 ALLERGY STATUS TO NARCOTIC AGENT STATUS 01/13/2019 ALBIN DEVI DO Ot Z90.7 10 ACQUIRED ABSENCE OF BOTH CERVIX AND UTER 01/13/2019 ALBIN DEVI DO B Ot Z92.2 1 PERSONAL HISTORY OF ANTINEOPLASTIC CHEMO 01/13/2019 ALBIN DEVI DO Ot Z98.0 INTESTINAL BYPASS AND ANASTOMOSIS STATUS 01/17/2019 ALBIN DEVI DO Ot E66.0 1 MORBID (SEVERE) OBESITY DUE TO EXCESS CA 01/17/2019 ALBIN DEVI DO Ot F32.9 MAJOR DEPRESSIVE DISORDER, SINGLE EPISOD 01/17/2019 ALBIN DEVI DO Ot F41.9 ANXIETY DISORDER, UNSPECIFIED 01/17/2019 SHANDRA AWAD ALBIN B Ot K21.9 GASTRO-ESOPHAGEAL REFLUX DISEASE WITHOUT 01/17/2019 CESARTABITHA AWADALBIN Ot K63.5 POLYP OF COLON 01/17/2019 CESARTABITHA AWADALBIN Ot K64.8 OTHER HEMORRHOIDS 01/17/2019 SHANDRA AWADALBIN Ot Z12.1 1 ENCOUNTER FOR SCREENING FOR MALIGNANT NE 01/17/2019 CESARTABITHA ALBIN AWAD Ot Z68.4 1 BODY MASS INDEX (BMI) 40.0-44.9, ADULT 01/17/2019 SHANDRA AWADALBIN Ot 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 01/17/2019 CESARTABITHA AWADALBIN Ot Z80.9 FAMILY HISTORY OF MALIGNANT NEOPLASM, UN 01/17/2019 CESARTABITHA ALBIN AWAD Ot Z82.4 9 FAMILY HX OF ISCHEM HEART DIS AND OTH DI 01/17/2019 CESARTABITHA AWADALBIN Ot Z83.3 FAMILY HISTORY OF DIABETES MELLITUS 01/17/2019 CESARTABITHA AWADALBIN Ot Z85.0 38 PERSONAL HISTORY OF MALIGNANT NEOPLASM O 01/17/2019 CESARTABITHA AWADALBIN Ot Z87.8 91 PERSONAL HISTORY OF NICOTINE DEPENDENCE 01/17/2019 CESARTABITHA AWADALBIN Ot Z88.5 ALLERGY STATUS TO NARCOTIC AGENT STATUS 01/17/2019 CESARTABITHA AWADALBIN Ot Z90.7 10 ACQUIRED ABSENCE OF BOTH CERVIX AND UTER 01/17/2019 CESARTABITHA AWADALBIN Ot Z92.2 1 PERSONAL HISTORY OF ANTINEOPLASTIC CHEMO 01/17/2019 CESARTABITHA AWADALBIN Ot Z98.0 INTESTINAL BYPASS AND ANASTOMOSIS STATUS 01/22/2019 FRANCISCO JAVIER HENRIQUEZ Ot C18.7 MALIGNANT NEOPLASM OF SIGMOID COLON 01/22/2019 FRANCISCO JAVIER HENRIQUEZ Ot C77.2 SECONDARY AND UNSP MALIGNANT NEOPLASM OF 01/22/2019 FRANCISCO JAVIER HENRIQUEZ Ot E66.9 OBESITY, UNSPECIFIED 01/22/2019 FRANCISCO JAVIER HENRIQUEZ Ot I73.9 PERIPHERAL VASCULAR DISEASE, UNSPECIFIED 01/22/2019 FRANCISCO JAVIER HENRIQUEZ Ot Z68.41 BODY MASS INDEX (BMI) 40.0-44.9, ADULT 01/22/2019 FRANCISCO JAVIER HENRIQUEZ Ot 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 Procedures Code Description Performed By Per formed On [id number] EX CISION OF RECTUM, OPEN APPROACH 02/18/2018 [id number] RE SECTION OF SIGMOID COLON, OPEN APPROAC 02/18/2018 [id number] RE LEASE OMENTUM, PERCUTANEOUS ENDOSCOPIC 12/10/2018 [id number] IN SPECTION OF BLADDER, ENDO 12/10/2018 [id number] RE POSITION URETHRA, OPEN APPROACH 12/10/2018 [id number] RE LEASE CUL-DE-SAC, PERCUTANEOUS ENDOSCO 12/10/2018 [id number] RE SECTION OF BILATERAL OVARIES, PERC END 12/10/2018 [id number] RE SECTION OF BILATERAL FALLOPIAN TUBES, 12/10/2018 [id number] RE SECTION OF UTERUS, PERCUTANEOUS ENDOSC 12/10/2018 [id number] RO BOTIC ASSISTED PROCEDURE OF TRUNK, PER 12/10/2018 Results Test Result Range Urine beta human chorionic gonadotropin (hCG) measurement - 12/20/15 10:00 Urine beta human chorionic gonadotropin (hCG) measurem ent NEGATIVE NEGATIVE Serum or plasma choriogonadotropin (preg ramos test) detection - 01/25/18 12:45 Serum or plasma choriogonadotropin ( test) de tection NEGATIVE NEGATIVE Complete blood count (CBC) with automate d white blood cell (WBC) differential - 02/12/18 12:20 Blood leukocytes automated count (number/volume) 6.7 10*3/uL 4.3-11.0 Blood erythrocytes automated count (number/volume) 4.63 10*6/uL 4.35-5.85 Venous blood hemoglobin measurement (mass/volume) 12.9 g/dL 11.5-16.0 Blood hematocrit (volume fraction) 39 % 35-52 Automated erythrocyte mean corpuscular volume 84 [ foz_us] 80-99 Automated erythrocyte mean corpuscular h emoglobin (mass per erythrocyte) 28 pg 25-34 Automated erythrocyte mean corpuscular h emoglobin concentration measurement (mass/volume) 33 g/dL 32-36 Automated erythrocyte distribution width ratio 13. 7 % 10.0- 14.5 Automated blood platelet count (count/volume) 396 10*3/uL [...] 10*3 1.0-4.0 Blood monocytes automated count (number/volume) 0. 3 10*3 0.0-1.0 Automated eosinophil count 0.1 10*3/uL 0 .0-0.3 Automated blood basophil count (count/volume) 0.0 10*3/uL 0.0-0.1 Blood type T Indirect antibody screen [facility] - 02/12/18 12:20 ABO+Rh group ON NRG Blood group antibody screen NEGATIVE NR G Methicillin resistant Staphylococcus aur eus (MRSA) screening culture - 02/12/18 12:20 Methicillin resistant Staphylococcus aureus (MRSA) scr eening culture NEG NRG Urine beta human chorionic gonadotropin (hCG) measurement - 02/18/18 06:23 Urine beta human chorionic gonadotropin (hCG) measurem ent NEGATIVE NEGATIVE Blood type T Indirect antibody screen [facility] - 02/18/18 06:37 ABO+Rh group ON NRG Transfusion band number [id number] NRG Blood group antibody screen NEGATIVE NR G Automated blood complete blood count (he mogram) panel - 02/21/18 03:55 Blood leukocytes automated count (number/volume) 7.8 10*3/uL 4.3-11.0 Blood erythrocytes automated count (number/volume) 3.33 10*6/uL 4.35-5.85 Venous blood hemoglobin measurement (mass/volume) 9.3 g/dL 11.5-16.0 Blood hematocrit (volume fraction) 29 % 35-52 Automated erythrocyte mean corpuscular volume 87 [ foz_us] 80-99 Automated erythrocyte mean corpuscular h emoglobin (mass per erythrocyte) 28 pg 25-34 Automated erythrocyte mean corpuscular h emoglobin concentration measurement (mass/volume) 32 g/dL 32-36 Automated erythrocyte distribution width ratio 13. 8 % 10.0- 14.5 Automated blood platelet count (count/volume) 279 10*3/uL [...] 5-14 Serum or plasma urea nitrogen measurement (mass/volume ) 8 mg/dL 7-18 Serum or plasma creatinine measurement (mass/volume) 0.67 mg/dL 0.60-1.30 Serum or plasma urea nitrogen/creatinine mass ratio 12 NRG Serum or plasma creatinine measurement w ith calculation of estimated glomerular filtration rate > NRG Serum or plasma glucose measurement (mass/volume) 73 mg/dL 70-105 Serum or plasma calcium measurement (mass/volume) 8.2 mg/dL 8.5-10.1 Serum or plasma total bilirubin measurement (mass/volu me) 0.3 mg/dL 0.1-1.0 Serum or plasma alkaline phosphatase moisés surement (enzymatic activity/volume) 72 U/L 40-136 Serum or plasma aspartate aminotransfera se measurement (enzymatic activity/volume) 20 U/L 5-34 Serum or plasma alanine aminotransferase measurement (enzymatic activity/volume) 14 U/L 0-55 Serum or plasma protein measurement (mass/volume) 5.2 g/dL 6.4-8.2 Serum or plasma albumin measurement (mass/volume) 2.9 g/dL 3.2-4.5 CALCIUM CORRECTED 9.1 mg/dL 8.5-10.1 Urine beta human chorionic gonadotropin (hCG) measurement - 03/29/18 07:35 Urine beta human chorionic gonadotropin (hCG) measurem ent NEGATIVE NEGATIVE Methicillin resistant Staphylococcus aur eus (MRSA) screening culture - 03/29/18 07:50 Methicillin resistant Staphylococcus aureus (MRSA) scr eening culture NEG NRG Complete blood count (CBC) with automate d white blood cell (WBC) differential - 11/20/18 11:45 Blood leukocytes automated count (number/volume) 6.9 10*3/uL 4.3-11.0 Blood erythrocytes automated count (number/volume) 4.77 10*6/uL 4.35-5.85 Venous blood hemoglobin measurement (mass/volume) 13.0 g/dL 11.5-16.0 Blood hematocrit (volume fraction) 39 % 35-52 Automated erythrocyte mean corpuscular volume 82 [ foz_us] 80-99 Automated erythrocyte mean corpuscular h emoglobin (mass per erythrocyte) 27 pg 25-34 Automated erythrocyte mean corpuscular h emoglobin concentration measurement (mass/volume) 33 g/dL 32-36 Automated erythrocyte distribution width ratio 14. 4 % 10.0- 14.5 Automated blood platelet count (count/volume) 368 10*3/uL 130-400 Automated blood platelet mean volume measurement 8.9 [foz_us] 7.4-10.4 Automated blood neutrophils/100 leukocytes 69 % 42-75 Automated blood lymphocytes/100 leukocytes 25 % 12-44 Blood monocytes/100 leukocytes 4 % 0-12 Automated blood eosinophils/100 leukocytes 1 % 0-10 Automated blood basophils/100 leukocytes 0 % 0-10 Blood neutrophils automated count (number/volume) 4.8 10*3 1.8-7.8 Blood lymphocytes automated count (number/volume) 1.7 10*3 1.0-4.0 Blood monocytes automated count (number/volume) 0. 3 10*3 0.0-1.0 Automated eosinophil count 0.1 10*3/uL 0 .0-0.3 Automated blood basophil count (count/volume) 0.0 10*3/uL 0.0-0.1 Blood type T Indirect antibody screen pa bekah - 11/20/18 11:45 WRISTBAND NUMBER TNP NRG ABO+Rh group ON NRG Blood group antibody screen NEGATIVE NR G Methicillin resistant Staphylococcus aur eus (MRSA) screening culture - 11/20/18 11:45 Methicillin resistant Staphylococcus aureus (MRSA) scr eening culture NEG NRG Complete urinalysis with reflex to cultu re - 11/20/18 11:50 Urine color determination YELLOW NRG Urine clarity determination CLEAR NR G Urine pH measurement by test strip 5 5-9 Specific gravity of urine by test strip 1.015 1.016-1.022 Urine protein assay by test strip, semi-quantitative NEGATIVE NEGATIVE Urine glucose detection by automated test strip NE GATIVE NEGATIVE Erythrocytes detection in urine sediment by light micr oscopy 1+ NEGATIVE Urine ketones detection by automated test strip NE GATIVE NEGATIVE Urine nitrite detection by test strip NEGATIVE NEGATIVE Urine total bilirubin detection by test strip NEGA TIVE NEGATIVE Urine urobilinogen measurement by automated test strip (mass/volume) NORMAL NORMAL Urine leukocyte esterase detection by dipstick NEG ATIVE NEGATIVE Automated urine sediment erythrocyte cou nt by microscopy (number/high power field) [HPF] NRG Automated urine sediment leukocyte count by microscopy (number/high power field) RARE NRG Bacteria detection in urine sediment by light microsco py TRACE NRG Squamous epithelial cells detection in u rine sediment by light microscopy 2-5 NRG Crystals detection in urine sediment by light microsco py NONE NRG Casts detection in urine sediment by light microscopy NONE NRG Mucus detection in urine sediment by light microscopy SMALL NRG Complete urinalysis with reflex to culture NO NRG Blood type T Indirect antibody screen pa bekah - 12/10/18 07:45 WRISTBAND NUMBER [id number] NRG ABO+Rh group ON NRG Blood group antibody screen NEGATIVE NR G Encounters ACCT No. Visit Date/Time Discharge Status Pt. Type Provider Facility Loc./Unit Complaint [id number] 01/13/2019 09:47:00 13:15:00 DIS Outpatient ALBIN DEVI DO [facility] ENDO HX COLON CANCER [id number] 01/08/2019 05:46:00 14:06:00 DIS Outpatient ALBIN DEVI DO [facility] PREOP COLONOSCOPY [id number] 12/18/2018 09:57:00 23:59:59 CLS Outpatient [facility] [id number] 12/10/2018 07:10:00 13:15:00 DIS Inpatient DENISSE MEJIA DO [facility] WS INCOMPLETE GENITAL PROL APSE [id number] 11/20/2018 11:30:00 14:29:00 DIS Outpatient DENISSE MEJIA DO [facility] PREOP INCOMPLETE GENITAL PROL APSE [id number] 11/15/2018 08:42:00 23:59:59 CLS Outpatient DENISSE MEJIA DO [facility] RAD SCREENING [id number] 10/11/2018 07:51:00 23:59:59 CLS Preadmit NIRAV ANGELESAIAX [place] APRN [facility] RAD SCREENING [id number] 09/17/2018 11:37:00 00:01:00 DIS Outpatient FRANCISCO JAVIER HENRIQUEZ V [facility] ONC [id number] 06/19/2018 13:10:00 00:01:00 DIS Outpatient FRANCISCO JAVIER HENRIQUEZ N [facility] ONC [id number] 03/29/2018 07:30:00 11:25:00 DIS [facility] [id number] 03/27/2018 05:35:00 11:34:00 DIS Outpatient SHANDRA AWAD ALBIN B [facility] PREOP PORT PLACEMENT [id number] 03/18/2018 08:57:00 23:59:59 CLS Outpatient FRANCISCO JAVIER HENRIQUEZ V [facility] RAD MALIGNANT NEOPLASM OF S IGMOID COLON [id number] 02/26/2018 13:01:00 23:59:59 CLS Outpatient SHANDRA AWAD ALBIN B [facility] LAB BURNING WITH URINATION [id number] 02/18/2018 05:55:00 17:10:00 DIS Inpatient SHANDRA AWAD ALBIN B [facility] 4TH COLON CARCINOMA [id number] 02/12/2018 11:52:00 23:59:59 CLS Outpatient SHANDRA AWAD ALBIN B [facility] PREOP SIGMOID COLON RESECTION [id number] 01/25/2018 12:18:00 14:35:00 DIS Outpatient SHANDRA AWAD ALBIN B [facility] ENDO SURVELLIANCE [id number] 01/23/2018 14:30:00 14:58:00 DIS Outpatient ALBIN DEVI DO [facility] PREOP COLONOSCOPY [id number] 12/20/2015 09:37:00 12:40:00 DIS Outpatient JANNA NOYOLA, LENY Ogden [facility] SCREENING [id number] 12/17/2015 05:32:00 10:04:00 DIS Outpatient JANNA NOYOLA, LENY [place]den [facility] PREOP HX POLYPS [id number] 05/31/2015 09:27:00 14:17:00 DIS Outpatient LENY SALDIVAR MD [facility] RECTAL BLEEDING; HEMOR RHOID [id number] 05/26/2015 05:35:00 13:37:00 DIS Outpatient LENY SALDIVAR MD [facility] PREOP RECTAL BLEEDING; HEMMO RHOIDS
== END 2019-01-13 13:15 | disposition home or self-care (01) ==
LOC: ENDO 09:47
PROVIDERS: ATTEND Surgery
DX: Z12.11 Encounter for screening for malignant neoplasm of colon (principal); K63.5 Polyp of colon; K64.8 Other hemorrhoids; K21.9 Gastro-esophageal reflux disease without esophagitis; F41.9 Anxiety disorder, unspecified; F32.9 Major depressive disorder, single episode, unspecified; E66.01 Morbid (severe) obesity due to excess calories; Z88.5 Allergy status to narcotic agent; Z92.21 Personal history of antineoplastic chemotherapy; Z87.891 Personal history of nicotine dependence; Z98.0 Intestinal bypass and anastomosis status; Z68.41 Body mass index [BMI] 40.0-44.9, adult; Z90.710 Acquired absence of both cervix and uterus; Z79.899 Other long term (current) drug therapy; Z85.038 Personal history of other malignant neoplasm of large intestine; Z82.49 Family history of ischemic heart disease and other diseases of the circulatory system; Z80.9 Family history of malignant neoplasm, unspecified; Z83.3 Family history of diabetes mellitus
CPT/HCPCS: 88305

== ENCOUNTER 2019-06-11 13:58 | Outpatient (RCR) | payer OTHER ==
[2019-03-19 11:24] LABS: BASOPHILS % (AUTO) 0 % (0-10); EOSINOPHILS # (AUTO) 0.1 10^3/uL (0.0-0.3); EOSINOPHILS % (AUTO) 2 % (0-10); HEMATOCRIT 38 % (35-52); HEMOGLOBIN 12.4 G/DL (11.5-16.0); LYMPHOCYTES # (AUTO) 1.6 X 10^3 (1.0-4.0); LYMPHOCYTES % (AUTO) 23 % (12-44); MEAN CORPUSCULAR HEMOGLOBIN 26 PG (25-34); MEAN CORPUSCULAR HGB CONC 32 G/DL (32-36); MEAN CORPUSCULAR VOLUME 80 FL (80-99); MEAN PLATELET VOLUME 9.2 FL (7.4-10.4); MONOCYTES # (AUTO) 0.4 X 10^3 (0.0-1.0); MONOCYTES % (AUTO) 6 % (0-12); NEUTROPHILS % (AUTO) 70 % (42-75); PLATELET COUNT 373 10^3/uL (130-400); RED CELL DISTRIBUTION WIDTH 15.2 % (10.0-14.5); WHITE BLOOD COUNT 7.2 10^3/uL (4.3-11.0)
[2019-03-19 11:49] LABS: ALANINE AMINOTRANSFERASE 25 U/L (0-55); ALBUMIN 4.3 GM/DL (3.2-4.5); ALKALINE PHOSPHATASE 66 U/L (40-136); BILIRUBIN,TOTAL 0.3 MG/DL (0.1-1.0); BUN/CREATININE RATIO 15; CALCIUM 9.6 MG/DL (8.5-10.1); CARBON DIOXIDE 23 MMOL/L (21-32); CHLORIDE 106 MMOL/L (98-107); CREATININE SERUM 0.89 MG/DL (0.60-1.30); GFR ESTIMATED > 60; GLUCOSE 98 MG/DL (70-105); SODIUM 137 MMOL/L (135-145); TOTAL PROTEIN 7.3 GM/DL (6.4-8.2)
[~2019-06-11 13:58] MED LIST changes: +ACHYD1T PO; +DCS100C PO; -DOCU-244 PO; -HYDR-3820 PO; +MELA3TAB39 PO; -MELA3TAB65 PO
[2019-06-11 14:18] LABS: BASOPHILS % (AUTO) 1 % (0-10); EOSINOPHILS # (AUTO) 0.1 10^3/uL (0.0-0.3); EOSINOPHILS % (AUTO) 2 % (0-10); HEMATOCRIT 39 % (35-52); HEMOGLOBIN 12.7 G/DL (11.5-16.0); LYMPHOCYTES # (AUTO) 1.7 X 10^3 (1.0-4.0); LYMPHOCYTES % (AUTO) 27 % (12-44); MEAN CORPUSCULAR HEMOGLOBIN 26 PG (25-34); MEAN CORPUSCULAR HGB CONC 33 G/DL (32-36); MEAN CORPUSCULAR VOLUME 80 FL (80-99); MEAN PLATELET VOLUME 8.9 FL (7.4-10.4); MONOCYTES # (AUTO) 0.4 X 10^3 (0.0-1.0); MONOCYTES % (AUTO) 6 % (0-12); NEUTROPHILS # (AUTO) 4.1 X 10^3 (1.8-7.8); NEUTROPHILS % (AUTO) 64 % (42-75); PLATELET COUNT 374 10^3/uL (130-400); RED CELL DISTRIBUTION WIDTH 15.7 % (10.0-14.5); WHITE BLOOD COUNT 6.4 10^3/uL (4.3-11.0)
[2019-06-11 14:35] LABS: ALANINE AMINOTRANSFERASE 20 U/L (0-55); ALBUMIN 4.3 GM/DL (3.2-4.5); ALKALINE PHOSPHATASE 59 U/L (40-136); BILIRUBIN,TOTAL 0.3 MG/DL (0.1-1.0); BUN/CREATININE RATIO 18; CALCIUM 9.2 MG/DL (8.5-10.1); CARBON DIOXIDE 19 MMOL/L (21-32); CHLORIDE 105 MMOL/L (98-107); GFR ESTIMATED > 60; GLUCOSE 90 MG/DL (70-105); SODIUM 137 MMOL/L (135-145); TOTAL PROTEIN 7.4 GM/DL (6.4-8.2)
== END 2019-06-17 | disposition home or self-care (01) ==
LOC: ONC 13:58
PROVIDERS: ATTEND Internal Medicine Hematology & Oncology
DX: C18.7 Malignant neoplasm of sigmoid colon (principal); C77.2 Secondary and unspecified malignant neoplasm of intra-abdominal lymph nodes; I73.9 Peripheral vascular disease, unspecified; E66.9 Obesity, unspecified; Z68.41 Body mass index [BMI] 40.0-44.9, adult; Z79.899 Other long term (current) drug therapy
CPT/HCPCS: 36591; 80053; 82378; 85025; 99213

== ENCOUNTER 2019-09-08 15:22 | Outpatient (RCR) | payer OTHER ==
[~2019-09-08 15:22] MED LIST changes: +ALPR.25T PO; -ALPR0.254 PO; -PANT40TA3 PO; +PANT40TA52 PO
[2019-09-08 15:48] LABS: BASOPHILS % (AUTO) 1 % (0-10); EOSINOPHILS # (AUTO) 0.1 10^3/uL (0.0-0.3); EOSINOPHILS % (AUTO) 2 % (0-10); HEMATOCRIT 36 % (35-52); LYMPHOCYTES # (AUTO) 1.8 X 10^3 (1.0-4.0); LYMPHOCYTES % (AUTO) 27 % (12-44); MEAN CORPUSCULAR HEMOGLOBIN 27 PG (25-34); MEAN CORPUSCULAR HGB CONC 33 G/DL (32-36); MEAN CORPUSCULAR VOLUME 82 FL (80-99); MEAN PLATELET VOLUME 8.9 FL (7.4-10.4); MONOCYTES # (AUTO) 0.4 X 10^3 (0.0-1.0); MONOCYTES % (AUTO) 5 % (0-12); NEUTROPHILS # (AUTO) 4.2 X 10^3 (1.8-7.8); NEUTROPHILS % (AUTO) 65 % (42-75); PLATELET COUNT 370 10^3/uL (130-400); WHITE BLOOD COUNT 6.5 10^3/uL (4.3-11.0)
[2019-09-08 16:08] LABS: ALANINE AMINOTRANSFERASE 44 U/L (0-55); ALBUMIN 4.1 GM/DL (3.2-4.5); ALKALINE PHOSPHATASE 57 U/L (40-136); BILIRUBIN,TOTAL 0.4 MG/DL (0.1-1.0); BUN/CREATININE RATIO 12; CARBON DIOXIDE 21 MMOL/L (21-32); CHLORIDE 105 MMOL/L (98-107); CREATININE SERUM 0.92 MG/DL (0.60-1.30); GFR ESTIMATED > 60; GLUCOSE 95 MG/DL (70-105); POTASSIUM 3.7 MMOL/L (3.6-5.0); SODIUM 137 MMOL/L (135-145); TOTAL PROTEIN 6.9 GM/DL (6.4-8.2)
== END 2019-12-07 | disposition home or self-care (01) ==
LOC: ONC 15:22
PROVIDERS: ATTEND Internal Medicine Hematology & Oncology
DX: C18.7 Malignant neoplasm of sigmoid colon (principal); C77.2 Secondary and unspecified malignant neoplasm of intra-abdominal lymph nodes; I73.9 Peripheral vascular disease, unspecified; E66.9 Obesity, unspecified; Z68.41 Body mass index [BMI] 40.0-44.9, adult; Z79.899 Other long term (current) drug therapy
CPT/HCPCS: 80053; 82378; 85025; G0463; 36591

== ENCOUNTER 2019-12-10 13:00 | Outpatient (RCR) | payer OTHER ==
[2019-12-10 13:25] LABS: BASOPHILS % (AUTO) 1 % (0-10); EOSINOPHILS # (AUTO) 0.1 10^3/uL (0.0-0.3); EOSINOPHILS % (AUTO) 1 % (0-10); HEMATOCRIT 37 % (35-52); HEMOGLOBIN 12.3 g/dL (11.5-16.0); LYMPHOCYTES # (AUTO) 1.8 10^3/uL (1.0-4.0); LYMPHOCYTES % (AUTO) 34 % (12-44); MEAN CORPUSCULAR HEMOGLOBIN 27 pg (25-34); MEAN CORPUSCULAR HGB CONC 33 g/dL (32-36); MEAN CORPUSCULAR VOLUME 82 fL (80-99); MEAN PLATELET VOLUME 8.7 fL (9.0-12.2); MONOCYTES # (AUTO) 0.3 10^3/uL (0.0-1.0); MONOCYTES % (AUTO) 7 % (0-12); NEUTROPHILS # (AUTO) 2.9 10^3/uL (1.8-7.8); NEUTROPHILS % (AUTO) 57 % (42-75); PLATELET COUNT 309 10^3/uL (130-400); WHITE BLOOD COUNT 5.1 10^3/uL (4.3-11.0)
[2019-12-10 13:44] LABS: ALANINE AMINOTRANSFERASE 26 U/L (0-55); ALBUMIN 4.2 GM/DL (3.2-4.5); ALKALINE PHOSPHATASE 64 U/L (40-136); BILIRUBIN,TOTAL 0.3 MG/DL (0.1-1.0); BUN/CREATININE RATIO 13; CALCIUM 9.5 MG/DL (8.5-10.1); CARBON DIOXIDE 24 MMOL/L (21-32); CHLORIDE 103 MMOL/L (98-107); CREATININE SERUM 0.89 MG/DL (0.60-1.30); GFR ESTIMATED > 60; GLUCOSE 91 MG/DL (70-105); POTASSIUM 4.1 MMOL/L (3.6-5.0); SODIUM 136 MMOL/L (135-145)
[2020-02-09] MEDS ORDERED: MELA1TAB15 PO (10:44)
== END 2020-03-09 | disposition home or self-care (01) ==
LOC: ONC 13:00
PROVIDERS: ATTEND Internal Medicine Hematology & Oncology
DX: C18.7 Malignant neoplasm of sigmoid colon (principal); Z90.49 Acquired absence of other specified parts of digestive tract; Z92.21 Personal history of antineoplastic chemotherapy
CPT/HCPCS: 80053; 82378; 85025; G0463; 36591

== ENCOUNTER 2020-02-12 05:31 | Outpatient (RCR) | payer OTHER ==
[~2020-02-12] VITALS: Ht 162.6 cm; Wt 99.8 kg
[~2020-02-12 05:31] MED LIST changes: +MELA1TAB15 PO
== END 2020-02-12 09:07 | disposition home or self-care (01) ==
LOC: PREOP 05:31
PROVIDERS: ATTEND Surgery
DX: Z01.818 Encounter for other preprocedural examination (principal); Z12.11 Encounter for screening for malignant neoplasm of colon; Z20.822 Contact with and (suspected) exposure to COVID-19
CPT/HCPCS: 87635

== ENCOUNTER 2020-02-16 07:40 | Day surgery (SDC) | payer OTHER ==
[~2020-02-16] VITALS: Ht 162.6 cm; Wt 99.8 kg
[2020-02-16] MEDS ORDERED: PROPOFOL INJECTION 50 ML IV ONE (07:42)
[2020-02-16] MEDS ORDERED: LACTATED RINGERS 1,000 ML IV ONE (07:43)
[2020-02-16] MEDS ORDERED: MIDAZOLAM 2 MG/2 ML (VERSED) VIAL ONE (07:43)
[2020-02-16] MEDS ORDERED: LACTATED RINGERS 1,000 ML IV STA (07:45)
[2020-02-16 07:57] VITALS: BP 117/81
--- NOTE | 2020-02-16 08:09 | Progress Note-Pre Operative ---
Pre-Operative Progress Note H&P Reviewed The H&P was reviewed, patient examined and no changes noted. Time Seen by Provider: 08:04 Date H&P Reviewed: Feb 16, 2020 Time H&P Reviewed: 08:05 Pre-Operative Diagnosis: Hx of colon CA ALBIN DEVI DO Feb 16, 2020 08:09
[2020-02-16 08:30] VITALS: BP 87/52
[2020-02-16 08:35] VITALS: BP 97/66
[2020-02-16 08:39] VITALS: BP 101/69
[2020-02-16 08:40] VITALS: BP 104/74
--- NOTE | 2020-02-16 08:50 | Endoscopy Discharge Instruct ---
Endo Procedure/Findings Findings 1.: Internal Hemorrhoids Discharge Instructions - Activity: You might feel a little sleepy until tomorrow. This is due to the me dicine you received to relax you. Until tomorrow, you should: NOT drive a car, operate machinery or power tools. NOT drink any alcoholic beverages. NOT make any important decisions or sign importortant papers. Do not return to work until tomorrow, unless otherwise instructed. Resume previous activities tomorrow. Diet: Start by taking liquids. If you tolerate liquids, advance to solid food. 1.: Colonoscopy in 1 year Notify Physician - If you experience excessive bleeding, unusual abdominal pain, fever, or chest pain, contact your doctor immediately. ALBIN DEVI DO Feb 16, 2020 08:50
--- NOTE | 2020-02-16 08:50 | Progress Note-Post Operative ---
Post-Operative Progess Note Surgeon (s)/Arboriculture Instructor (s) Surgeon ALBIN DEVI DO Arboriculture Instructor: NICHOLAS Paiz Pre-Operative Diagnosis Hx of colon CA Post-Operative Diagnosis int hemorrhoids Procedure & Operative Findings Date of Procedure 02/16/20 Procedure Performed/Findings colonoscopy Anesthesia Type IV sedation by AIRCRAFT INSTRUMENT ENGINEER Estimated Blood Loss Estimated blood loss (mL): none Specimens/Packing Specimens Removed none ALBIN DEVI DO Feb 16, 2020 08:50
[2020-02-16 09:02] VITALS: BP 121/83
--- NOTE | 2020-02-16 13:00 | Anesthesia-General Post-Op ---
MAC Patient Condition Mental Status/LOC: Same as Preop Cardiovascular: Satisfactory Nausea/Vomiting: Absent Respiratory: Satisfactory Pain: Controlled Complications: Absent Post Op Complications Complications None Follow Up Care/Instructions Patient Instructions None needed. Anesthesiology Discharge Order Discharge Order Patient is doing well, no complaints, stable vital signs, no apparent adverse anesthesia problems. No complications reported per nursing. LUCIA MILLER CRNA Feb 16, 2020 13:00
--- NOTE | 2020-02-16 13:17 | OPERATIVE REPORT ---
DATE OF SERVICE: 02/16/2020 PREOPERATIVE DIAGNOSIS: History of colon cancer. POSTOPERATIVE DIAGNOSIS: Internal hemorrhoids. PROCEDURE PERFORMED: Colonoscopy. SURGEON: William Landry DO BOXING TRAINER: THAI Paiz. SPECIMENS: None. BLOOD LOSS: None. FLUIDS: Per anesthesia. POSTOPERATIVE CONDITION: Stable. INDICATION FOR PROCEDURE: The patient is a 49-year-old female with a history of colon cancer and needs a diagnostic colonoscopy. FINDINGS: The patient had some internal hemorrhoids, but no other obvious pathology. PROCEDURE NOTE: After informed consent was obtained, the patient was brought to the endoscopy suite and placed in the bed in a left lateral decubitus position. She was administered IV sedation by the INFORMATION TECHNOLOGY TECHNICIAN, who then monitored her vitals the entire time, heart rate, blood pressure and pulse ox and the scope was inserted, pushed in all the way to about 140 cm, able to get all way to cecum, took a picture of the appendiceal orifice, noted the ileocecal valve, on the way in, had seen the anastomotic rings from the staple line, took a picture. Once in the cecum, I then slowly withdrew the scope insufflating looking circumferentially at the ritchie. Starting in the cecum, up the ascending colon to the hepatic flexure, then down the transverse colon, into the splenic flexure, into the descending colon down to the sigmoid and finally into the rectum, retroflexed in the rectal vault, saw some internal hemorrhoids, took a picture of this and then removed the scope. The patient tolerated the procedure. She is recovering in the endoscopy suite. Job ID: [id number] DocumentID: [id number] Dictated Date: 02/16/2020 08:57:35 Superintendent Warehouse Date: 02/16/2020 13:17:21 Dictated By: WILLIAM LANDRY DO [facility]
== END 2020-02-16 09:15 | disposition home or self-care (01) ==
LOC: ENDO 07:40
PROVIDERS: ATTEND Surgery
DX: K64.8 Other hemorrhoids (principal); K21.9 Gastro-esophageal reflux disease without esophagitis; F41.8 Other specified anxiety disorders; D64.9 Anemia, unspecified; E66.9 Obesity, unspecified; Z68.37 Body mass index [BMI] 37.0-37.9, adult; Z79.899 Other long term (current) drug therapy; Z88.5 Allergy status to narcotic agent; Z85.038 Personal history of other malignant neoplasm of large intestine; Z86.010 Personal history of colon polyps; Z87.891 Personal history of nicotine dependence; Z85.048 Personal history of other malignant neoplasm of rectum, rectosigmoid junction, and anus

== ENCOUNTER 2020-06-08 15:07 | Outpatient (RCR) | payer OTHER ==
[2020-03-16 13:39] LABS: BASOPHILS % (AUTO) 1 % (0-10); EOSINOPHILS # (AUTO) 0.1 10^3/uL (0.0-0.3); EOSINOPHILS % (AUTO) 2 % (0-10); HEMATOCRIT 39 % (35-52); HEMOGLOBIN 12.6 g/dL (11.5-16.0); LYMPHOCYTES # (AUTO) 1.4 10^3/uL (1.0-4.0); LYMPHOCYTES % (AUTO) 27 % (12-44); MEAN CORPUSCULAR HEMOGLOBIN 27 pg (25-34); MEAN CORPUSCULAR HGB CONC 33 g/dL (32-36); MEAN CORPUSCULAR VOLUME 82 fL (80-99); MEAN PLATELET VOLUME 8.9 fL (9.0-12.2); MONOCYTES # (AUTO) 0.3 10^3/uL (0.0-1.0); MONOCYTES % (AUTO) 7 % (0-12); NEUTROPHILS # (AUTO) 3.1 10^3/uL (1.8-7.8); NEUTROPHILS % (AUTO) 63 % (42-75); PLATELET COUNT 330 10^3/uL (130-400)
[2020-03-16 13:52] LABS: ALBUMIN 4.3 GM/DL (3.2-4.5); BILIRUBIN,TOTAL 0.3 MG/DL (0.1-1.0); CALCIUM 9.5 MG/DL (8.5-10.1); POTASSIUM 4.1 MMOL/L (3.6-5.0); TOTAL PROTEIN 7.4 GM/DL (6.4-8.2)
[~2020-06-08 15:07] MED LIST changes: -CIPR500T4 PO; +CIPR500T5 PO
[2020-06-08 16:16] LABS: BASOPHILS # (AUTO) 0.1 10^3/uL (0.0-0.1); BASOPHILS % (AUTO) 1 % (0-10); EOSINOPHILS # (AUTO) 0.7 10^3/uL (0.0-0.3); EOSINOPHILS % (AUTO) 10 % (0-10); HEMATOCRIT 38 % (35-52); HEMOGLOBIN 12.5 g/dL (11.5-16.0); LYMPHOCYTES # (AUTO) 1.9 10^3/uL (1.0-4.0); LYMPHOCYTES % (AUTO) 28 % (12-44); MEAN CORPUSCULAR HEMOGLOBIN 27 pg (25-34); MEAN CORPUSCULAR HGB CONC 33 g/dL (32-36); MEAN CORPUSCULAR VOLUME 83 fL (80-99); MEAN PLATELET VOLUME 8.9 fL (9.0-12.2); MONOCYTES # (AUTO) 0.4 10^3/uL (0.0-1.0); MONOCYTES % (AUTO) 6 % (0-12); NEUTROPHILS # (AUTO) 3.9 10^3/uL (1.8-7.8); NEUTROPHILS % (AUTO) 56 % (42-75); PLATELET COUNT 301 10^3/uL (130-400); WHITE BLOOD COUNT 6.9 10^3/uL (4.3-11.0)
[2020-06-08 16:35] LABS: ALANINE AMINOTRANSFERASE 48 U/L (0-55); ALBUMIN 4.2 GM/DL (3.2-4.5); ALKALINE PHOSPHATASE 75 U/L (40-136); BILIRUBIN,TOTAL 0.2 MG/DL (0.1-1.0); BUN/CREATININE RATIO 15; CALCIUM 9.3 MG/DL (8.5-10.1); CARBON DIOXIDE 28 MMOL/L (21-32); CHLORIDE 103 MMOL/L (98-107); CREATININE SERUM 0.85 MG/DL (0.60-1.30); GFR ESTIMATED > 60; GLUCOSE 92 MG/DL (70-105); POTASSIUM 3.9 MMOL/L (3.6-5.0); SODIUM 137 MMOL/L (135-145)
== END 2020-06-14 | disposition home or self-care (01) ==
LOC: ONC 15:07
PROVIDERS: ATTEND Internal Medicine Hematology & Oncology
DX: C18.7 Malignant neoplasm of sigmoid colon (principal); C77.9 Secondary and unspecified malignant neoplasm of lymph node, unspecified; Z90.49 Acquired absence of other specified parts of digestive tract; Z92.21 Personal history of antineoplastic chemotherapy; Z72.0 Tobacco use
CPT/HCPCS: 80053; 82378; 85025; G0463; 36591

== ENCOUNTER 2020-12-21 10:33 | Outpatient (RCR) | payer OTHER ==
[~2020-12-21 10:33] MED LIST changes: -DCS100C PO; +DOCU-239 PO; -PHEN37.53 PO; +PHEN37.58 PO
[2020-12-21 11:04] LABS: BASOPHILS % (AUTO) 1 % (0-10); EOSINOPHILS # (AUTO) 0.2 10^3/uL (0.0-0.3); EOSINOPHILS % (AUTO) 3 % (0-10); HEMATOCRIT 38 % (35-52); HEMOGLOBIN 12.5 g/dL (11.5-16.0); LYMPHOCYTES # (AUTO) 1.7 10^3/uL (1.0-4.0); LYMPHOCYTES % (AUTO) 36 % (12-44); MEAN CORPUSCULAR HEMOGLOBIN 28 pg (25-34); MEAN CORPUSCULAR HGB CONC 33 g/dL (32-36); MEAN CORPUSCULAR VOLUME 86 fL (80-99); MEAN PLATELET VOLUME 8.8 fL (9.0-12.2); MONOCYTES # (AUTO) 0.3 10^3/uL (0.0-1.0); MONOCYTES % (AUTO) 7 % (0-12); NEUTROPHILS # (AUTO) 2.4 10^3/uL (1.8-7.8); NEUTROPHILS % (AUTO) 52 % (42-75); PLATELET COUNT 341 10^3/uL (130-400); WHITE BLOOD COUNT 4.7 10^3/uL (4.3-11.0)
[2020-12-21 11:40] LABS: ALBUMIN 4.3 GM/DL (3.2-4.5); BILIRUBIN,TOTAL 0.4 MG/DL (0.1-1.0); CALCIUM 9.7 MG/DL (8.5-10.1); CREATININE SERUM 0.8 MG/DL (0.60-1.30); TOTAL PROTEIN 7.2 GM/DL (6.4-8.2)
== END 2021-02-04 | disposition home or self-care (01) ==
LOC: ONC 10:33
PROVIDERS: ATTEND Internal Medicine Hematology & Oncology
DX: C18.7 Malignant neoplasm of sigmoid colon (principal); C77.9 Secondary and unspecified malignant neoplasm of lymph node, unspecified; F41.8 Other specified anxiety disorders; E66.9 Obesity, unspecified; Z90.49 Acquired absence of other specified parts of digestive tract; Z92.21 Personal history of antineoplastic chemotherapy; Z72.0 Tobacco use
CPT/HCPCS: 80053; 82378; 85025; G0463; 36591; 99213

== ENCOUNTER 2021-06-29 06:12 | Outpatient (CLI) | payer BC, OTHER ==
[~2021-06-29] VITALS: Ht 162.5 cm; Wt 100.0 kg
[2021-06-30] MEDS ORDERED: STRAT40CAP PO (15:09)
== END 2021-06-30 15:21 | disposition home or self-care (01) ==
LOC: PREOP 06:12
PROVIDERS: ATTEND Surgery
DX: Z01.818 Encounter for other preprocedural examination (principal)

== ENCOUNTER 2021-07-07 08:31 | Day surgery (SDC) | payer BC, OTHER ==
[2021-07-07] VITALS (8 sets, daily range): BP systolic 103–121; BP diastolic 69–85
[~2021-07-07] VITALS: Ht 162.6 cm; Wt 103.4 kg
[~2021-07-07 08:31] MED LIST changes: +STRAT40CAP PO
[2021-07-07] MEDS ORDERED: ceFAZolin 2 GM IV Premixed 50 ML IV ONE (09:15)
[2021-07-07] MEDS ORDERED: LACTATED RINGERS 1,000 ML IV PRN (09:15)
--- NOTE | 2021-07-07 10:08 | Progress Note-Pre Operative ---
Pre-Operative Progress Note H&P Reviewed The H&P was reviewed, patient examined and no changes noted. Time Seen by Provider: 10:05 Date H&P Reviewed: Jul 07, 2021 Time H&P Reviewed: 10:05 Pre-Operative Diagnosis: hx of colon ca, venous insufficiency ALBIN DEVI DO Jul 07, 2021 10:08
[2021-07-07] MEDS ORDERED: LIDOCAINE/EPI 2% 1:200,00 (XYLOCAINE) 10 ML VIAL ONE (10:10)
[2021-07-07] MEDS ORDERED: fentaNYL INJ 100 MCG/2 ML AMP ONE (10:18)
[2021-07-07] MEDS ORDERED: MIDAZOLAM 2 MG/2 ML (VERSED) VIAL ONE (10:19)
[2021-07-07] MEDS ORDERED: PROPOFOL INJECTION 50 ML IV ONE (10:42)
--- NOTE | 2021-07-07 10:53 | Progress Note-Post Operative ---
Post-Operative Progess Note Surgeon (s)/Field Secretary (s) Surgeon ALBIN DEVI DO Field Secretary: none Pre-Operative Diagnosis hx of colon ca, venous insufficiency Post-Operative Diagnosis same Procedure & Operative Findings Date of Procedure 07/07/21 Procedure Performed/Findings PROCEDURE: Removal of port COMPLICATIONS: None. INDICATIONS: The patient is a 50 year-old female who had a port previously placed. Patient is ok to have port removed. The patient was explained risk and benefits of the procedure and wished to proceed with procedure. Consent was signed on the chart. PROCEDURE: The patient was taken to the operating suite and was prepped and draped in sterile fashion. A surgical pause was performed. Local anesthetic was infiltrated to the area around the port. A #15 blade scalpel was used to make an incision right on top of old. Cautery was used to dissect down to the port which was then grasped and then dissected around. The catheter was removed in its entirety. There was some back bleeding that was controlled with 3-0 Vicryl figure of eight stitch. The port was then able to be dissected out of the pocket and elevated. The wound was then irrigated with copious amounts of irrigation. Hemostasis had been achieved. Skin was then closed using 4-0 Vicryl 3 interrupted subcuticular stitches. The area was then washed and dried and Skin Affix placed over the incision. The patient tolerated the procedure well without complication and was taken to recovery room in stable condition. Anesthesia Type IV sedation by EPOXY FABRICATION SUPERVISOR Estimated Blood Loss Estimated blood loss (mL): scant Specimens/Packing Specimens Removed port, not sent to ALBIN Flores DO Jul 07, 2021 10:53
[2021-07-07] MEDS ORDERED: ACHD5005 PO (10:54)
--- NOTE | 2021-07-07 10:55 | Discharge Inst-Surgical ---
Discharge Inst-Surgical Depart Medication/Instructions New, Converted or Re-Newed RX: Transmitted to Pharmacy Patient Instructions Follow up Appt: Make appointment for 2 weeks. [phone] Instructions: No lifting greater than 20 pounds. No strenuous activity. May shower in 24 hours, no tub bath or soaking. Use incentive spirometer at home as directed. No Smoking Skin/Wound Care: May remove bandages in am. You need to leave the Dermabond on incision it will fall off on it's own. Symptoms to Report: Appetite Changes, Extremity Discoloration, Numbness/Tingling, Swelling Increased, Bleeding Excessive, Eyesight Changes, Pain Increased, Urine Color Change, Constipation(Persistent), Fever over 101 degree F, Pain/Pressure in chest, Urinating Difficulty, Cough Up/Vomit Blood, Heart Beat Irreg/Pounding, Pain/Pressure in jaw, Cramps in feet or legs, Lightheadedness, Pain/Pressure in shoulder, Diarrhea(Persistent), Memory Changes Suddenly, Questions/Concerns, Weight gain consecutive days, Dizziness/Fainting, Nausea/Vomiting, Shortness of Breath, Weight gain over 2 pounds If questions or concerns contact your physician Or seek help at emergency department. Activity Activity as Tolerated: Yes Activity Instructions: Avoid Stress to Incision Driving Instructions: No Driving/Refer to Dr. Altamirano Discharge Diet: No Restrictions Diet After 24 Hours: Clear Liquid if Nauseous If Any Problems/Questions/Issu: Contact Your Physician, Go to Emergency Room Skin/Wound Care Infection Signs and Symptoms: Increased Redness, Foul Odor of Wound, Increased Drainage, Skin Itchy or Has a Rash, Increased Swelling, Temperature Above 101 F Bathing Instructions: Shower Stitches/Cipriano/Dermabond Dis: Dermabond Ice Pack: Ice On and Off Site ALBIN DEVI DO Jul 07, 2021 10:55
--- NOTE | 2021-07-07 11:07 | Anesthesia-General Post-Op ---
MAC Patient Condition Mental Status/LOC: Same as Preop Cardiovascular: Satisfactory Nausea/Vomiting: Absent Respiratory: Satisfactory Pain: Controlled Complications: Absent Post Op Complications Complications None Follow Up Care/Instructions Patient Instructions None needed. Anesthesiology Discharge Order Discharge Order Patient is doing well, no complaints, stable vital signs, no apparent adverse anesthesia problems. No complications reported per nursing. RIAN GUNN CRNA Jul 07, 2021 11:07
== END 2021-07-07 12:05 | disposition home or self-care (01) ==
LOC: SDC 08:31
PROVIDERS: ATTEND Surgery
DX: Z85.038 Personal history of other malignant neoplasm of large intestine (principal)
CPT/HCPCS: 87081